=== PATIENT | male | born 1965 | race Caucasian/White ===

== ENCOUNTER 2022-07-12 09:00 | Outpatient (RCR) | payer OTHER, SELFPAY | END 2022-11-30 23:59 | disposition home or self-care (01) | PROVIDERS: PCP Family Medicine; Visit Provider Family Medicine | DX: M54.2 Cervicalgia (principal); Z51.89 Encounter for other specified aftercare | CPT/HCPCS: 97012; 97032; 97035; 97110; 97140; 97161; 97530 ==

== ENCOUNTER 2023-04-21 22:02 | Emergency (ER) | payer OTHER, SELFPAY ==
[2023-04-21] VITALS (14 sets, daily range): BP systolic 108–124; BP diastolic 78–95; PULSE 84–154; RESP 16; TEMP 36.4; O2SAT 92–98
--- NOTE | 2023-04-21 22:25 | CRLHL7_ITS ---
For Patients: As a result of the Century Cures Act, medical imaging exams and procedure reports are released immediately into your electronic medical record. You may view this report before your referring provider. If you have questions, please contact your health care provider. INDICATION: Arrhythmias. TECHNIQUE: Chest 1 view. COMPARISON: None. FINDINGS: No focal consolidation, pleural effusion, or pneumothorax. Normal heart size and pulmonary vascularity. Sternotomy with mediastinal clips and cardiac valve prosthesis. Rounded density projected over the left heart may represent a calcified mediastinal lymph node. The bones are unremarkable. IMPRESSION: No acute cardiopulmonary findings. Dictated by Chely Bae MD @ 04/22/2023 1:11:45 AM (Electronically Signed)
--- NOTE | 2023-04-21 22:26 | ED_ITS ---
HPI - General Adult General Date Seen: 04/21/23 Chief complaint: Arrhythmia/Palpitations Stated complaint: A fib Time Seen by Provider: 04/21/23 22:06 History of Present Illness HPI narrative: This is a very pleasant 57-year-old male with a past medical history of aortic stenosis, aortic valve replacement with mechanical valve, coronary artery disease with CABG. He had his heart surgery about a year ago done at [facility] through [facility]. He did also had some transient atrial fibrillation in the postop. While in the hospital. He is chronically anticoagulated on warfarin for stroke prophylaxis with his mechanical valve. Recent INRs have been around 2.5. He has been pretty steady with INR slightly so has not checked it in a while. He is due to get his INR checked again next week. He had an episode of palpitations that came and went about 3 weeks ago. He was relatively asymptomatic with it. He wonders if he was in AFib but never checked his rhythm or came to the doctor to get investigated. He has been healthy and well since then. He does snore a little bit. He has gained a little bit of weight since his surgery but is otherwise doing well. He has never med diagnosed with sleep apnea. No history of thyroid disease. No recent weight loss or gain. Today he was feeling well. He did have 3 beers while at his friend's house watching the [employer] game. This evening he was at home. He started to feel somewhat unusual and he noticed that his heart was beating faster than normal because he can not hear that clicking of his mechanical valve beating too fast. It initially sounded regular to him. Subsequently changed in state fast but became more regular. Heart rate is around 150. He contacted his friends and took some magnesium but did not get any better so came here to the ER. Other than feeling a little bit dizzy he is otherwise asymptomatic. No chest pain. No shortness of breath. No syncope. No nausea or vomiting. He has no recent travel. No swelling in his legs. His meds include warfarin, metoprolol, rosuvastatin, ranitidine Related Data Home Medications Medication Instructions Recorded Confirmed aspirin 81 mg tablet,delayed 81 mg PO QDAY 06/19/22 06/19/22 release famotidine 40 mg tablet 40 mg PO 06/19/22 06/19/22 metoprolol succinate 50 mg tab PO 06/19/22 06/19/22 tablet,extended release 24 hr nitroglycerin 0.4 mg sublingual 0.4 mg sublingual PRN 06/19/22 06/19/22 tablet rosuvastatin 20 mg tablet 20 mg PO QDAY 06/19/22 06/19/22 warfarin 3 mg tablet See Rx Instructions .Route .COMPLEX 06/19/22 06/19/22 Previous Rx's Medication Instructions Recorded diltiazem HCl 30 mg tablet 30 mg PO Q6H PRN atrial 04/22/23 fibrillation #10 tabs Allergies Allergy/AdvReac Type Severity Reaction Status Date / Time No Known Drug Allergies Allergy Verified 06/19/22 12:22 [facility] PFS Surgical History (Updated 06/19/22 @ 12:26 by Hazel Miranda ~ [facility]) 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) ?R22.1 - Localized swelling, mass and lump, neck (ICD-10) ?Z85.9 - Personal history of malignant neoplasm, unspecified (ICD-10) History of open heart surgery (01/24/22) ?Z98.890 - Other specified postprocedural states (ICD-10) Social History (Updated 06/19/22 @ 12:23 by Hazel Miranda ~ [facility], [facility]) Smoking Status: Never smoker Do you use any of these nicotine containing products: None Second hand tobacco smoke exposure: No How often do you have a drink containing alcohol: 2-3 times a week How many standard drinks containing alcohol do you have on a typical day: 1 or 2 AUDIT-C Alcohol total score: 3 Exam Narrative: Exam Narrative: Constitutional: Appears well-developed and well-nourished. Alert. Conversant. Non toxic. HENT: Head: Atraumatic. Nose: Nose normal. Mouth/Throat: Oral mucosa is clear and moist. no trismus. Pharynx normal. Tonsils symmetric. No tonsillar enlargement, erythema, or exudate. Eyes: Conjunctivae normal. EOM normal. Pupils equal, round, and reactive to light. No scleral icterus. Neck: Normal range of motion. Neck supple. No tracheal deviation present. No thyromegaly. Cardiovascular: Tachycardic, rate 150 on the monitor., regular rhythm. No gallop. No friction rub. Clicking systolic murmur heard. Symmetric radial and PT artery pulses . No JVD Pulmonary/Chest: Effort normal. No stridor. No respiratory distress. No wheezes. No rales. No rhonchi . No tenderness. Abdominal: Soft. No distension. No mass. No tenderness. No rebound. No guarding. Musculoskeletal: RUE: Normal range of motion. No tenderness. No deformity LUE: Normal range of motion. No tenderness. No deformity RLE: Normal range of motion. No edema. No tenderness. No deformity LLE: Normal range of motion. No edema. No tenderness. No deformity Neurological: Alert and oriented to person, place, and time. Normal strength. CN II-VII intact. No sensory deficit. GCS eye subscore is 4. GCS verbal subscore is 5. GCS motor subscore is 6. Normal coordination Skin: Skin is warm and dry. No rash noted. No pallor. Normal capillary refill. Psychiatric: Normal mood. Normal affect. Const: Vital Signs, click to edit/add: Vital Signs - 24 hr 04/21/23 22:21 04/21/23 22:22 04/21/23 22:28 Temperature 97.6 F Pulse Rate 151 H 150 H Pulse Rate [Pulse Oximeter] 154 H Respiratory Rate 16 Blood Pressure 124/95 H Blood Pressure [Ri ght Upper Arm] 124/95 H Pulse Oximetry 96 98 98 Oxygen Delivery Me thod Room Air 04/21/23 22:30 04/21/23 22:38 04/21/23 22:45 Temperature Pulse Rate 151 H 151 H 148 H Pulse Rate [Pulse Oximeter] Respiratory Rate Blood Pressure 117/92 H Blood Pressure [Ri ght Upper Arm] Pulse Oximetry 96 96 97 Oxygen Delivery Me thod 04/21/23 22:55 04/21/23 22:56 04/21/23 23:00 Temperature Pulse Rate 84 87 90 Pulse Rate [Pulse Oximeter] Respiratory Rate Blood Pressure 108/79 Blood Pressure [Ri ght Upper Arm] Pulse Oximetry 97 92 93 Oxygen Delivery Me thod 04/21/23 23:15 04/21/23 23:30 04/21/23 23:33 Temperature Pulse Rate 95 89 84 Pulse Rate [Pulse Oximeter] Respiratory Rate Blood Pressure 120/78 Blood Pressure [Ri ght Upper Arm] Pulse Oximetry 94 97 96 Oxygen Delivery Me thod Course Vital Signs Vital signs: Initial Vital Signs Pulse Rate 151 H 04/21/23 22:21 Blood Pressure 124/95 H 04/21/23 22:21 Blood Pressure Mean 104 04/21/23 22:21 Pulse Oximetry 96 04/21/23 22:21 Vital Signs Pulse Rate 151 H 04/21/23 22:21 Blood Pressure 124/95 H 04/21/23 22:21 Pulse Oximetry 96 04/21/23 22:21 Temperature 97.6 F 04/21/23 22:28 Pulse Rate 84 04/21/23 23:33 Respiratory Rate 16 04/21/23 22:28 Blood Pressure 120/78 04/21/23 23:33 Pulse Oximetry 96 04/21/23 23:33 Oxygen Delivery Method Room Air 04/21/23 22:28 Medications Administered Medications: Generic Name Dose Route Start Last Admin Trade Name Freq PRN Reason Stop Dose Admin Sodium Chloride 1,000 mls @ 1,000 mls/hr 04/21/23 22:30 04/22/23 00:08 0.9 % Sodium Chloride 1000 Ml IV 04/21/23 23:29 Infused .Q1H LOVELY Infusion Metoprolol Tartrate 5 mg 04/21/23 22:24 04/21/23 22:39 Metoprolol Tartrate 1 Mg/Ml Inj IVP 04/21/23 22:25 5 mg ONCE ONE Administration Medical Decision Making MDM Narrative Medical decision making narrative: This patent presents for evaluation of palpitations, with very clear onset at approximately 8:00 p.m. tonight. This is consistent with atrial flutter with 2- 1 conduction and then conversion to atrial fibrillation with rapid ventricular response. He had a similar episode of palpitations about 3 weeks ago that resolved at home. He does have previous heart disease including previous radiation to his thorax, aortic valve replacement, CABG, and postoperative AFib. He is chronically anticoagulated on warfarin but is slightly subtherapeutic on his INR tonight at 1.85. I doubt acute coronary syndrome, PE, dissection, drug ingestion, acute electrolyte imbalance, etc. no ischemia on EKG, troponin normal, and no chest pain or other symptoms of ischemia. Labs and CXR look ok. Repeat EKG looks normal sinus rhythm. Initially had a flutter with 2-1 conduction rate of 150. We administered metoprolol for rate control. This slowed him down and he switched atrial fibrillation with rate ranging 100-120. Subsequently converted to sinus rhythm. Asymptomatic after conversion now and would not hospitalize. Discussed with patient and the patient is in agreement. Discussed with his senior facilities manager. They advise p.r.n. use of diltiazem 30 mg if needed for recurrent AFib. No other change in his regular metoprolol, warfarin. Would not initiate anti arrhythmic Amezquita over the phone. He will need outpatient follow-up in Cardiology Clinic. They will pass a note through to his primary senior facilities manager. The patient will also call Sunday morning to arrange his follow- up visit. Of note his INR slightly subtherapeutic. Suspect this has to do with the time of night that we kim his labs. He will continue his current dose every day and follow-up for his repeat INR check on Sunday, 3 days for now. TSH is slightly elevated tonight. Suggesting possible hypothyroidism. Free T4 level is pending at the time of this dictation. He will follow up with his doctor's office in clinic to follow-up on the free T4 level and if low, may need to initiate thyroid therapy. I do not think hypothyroidism would be contributing to his AFib with RVR. Lab Data Labs: Lab Results 04/21/23 04/21/23 Range/Units 22:15 23:15 WBC 8.85 (4.50-11.00) K/uL RBC 4.56 (4.30-5.90) m/uL Hgb 14.2 (13.5-17.5) gm/dL Hct 41.8 (37.0-53.0) % MCV 92 (80-100) fL MCH 31 (26-34) pg MCHC 34 (32-36) gm/dL RDW Coeff of Hortencia 14.5 (11.5-15.5) % Plt Count 313 (140-440) K/uL Neut % (Auto) 59.1 (42.0-72.0) % Lymph % (Auto) 26.2 (20-44) % [place] % (Auto) 10.7 (0.0-11.0) % Eos % (Auto) 2.1 (0.0-7.0) % Baso % (Auto) 0.7 (0.0-3.0) % Neut # (Auto) 5.22 (1.7-7.0) K/uL Lymph # (Auto) 2.32 (0.90-2.90) K/uL [place] # (Auto) 0.90 (0.00-0.90) K/UL Eos # (Auto) 0.19 (0.00-0.50) K/uL Baso # (Auto) 0.06 (0.00-0.30) K/uL Abs Immat Gran (auto) 0.11 (0.00-0.30) K/uL Imm/Tot Granulo (auto) 1.2 % INR 1.85 H (0.91-1.10) Sodium 131 L (135-149) mmol/L Potassium 4.2 (3.6-5.1) mmol/L Chloride 95 L (96-114) mmol/L Carbon Dioxide 26 (20-32) mmol/L Anion Gap 10 (7-15) mEq/L BUN 15 (7-30) mg/dL Creatinine 0.9 (0.5-1.5) mg/dL Estimated Creat Clear 98.77 Estimated GFR 101 ml/min Glucose 87 (60-115) mg/dL Calcium 9.4 (8.4-10.6) mg/dL Troponin I 0.03 (0.01-0.04) ng/mL TSH 5.860 H (0.270-4.200) uIU/mL Lab Acknowledgement Test Added ECG Data Attestation: I personally reviewed and interpreted this ECG as follows: Interpretation: 10:11 p.m. Atrial flutter with 2:1 conduction CA na QRS axis normal axis. ST segment/T wave: No ST segment elevation or depression. QTc: 388 11:05 p.m. Atrial fibrillation with rapid ventricular response. Rate 107. Some unusual QRS morphologies suggest aberrant conduction or PVCs CA Na QRS axis left axis deviation ST segment/T wave: No ST segment elevation or depression. QTc: 408 EKG 11:31 p.m. Normal sinus rhythm. Rate 84. CA 206 QRS axis: Left axis deviation. ST segment/T-wave. No ST segment elevation. Discharge Plan Discharge Clinical Impression: Atrial fibrillation with rapid ventricular response Patient Disposition: Home, Self-Care Condition: Stable Instructions: A-fib (Atrial Fibrillation) (ED) Additional Instructions: 1. If you have any recurrent episodes of AFib that, especially if you have concerning symptoms such as fainting, chest pain, trouble breathing, return to the ER immediately or call 911. 2. If you have recurrent episodes of AFib with only mild are no symptoms you can take an extra dose of a new medication-diltiazem. Do not take the diltiazem every day. Only take it if you feel about of atrial fibrillation. 3. Call your senior facilities manager Sunday to arrange an appointment in the clinic. 4. Continue on your warfarin, metoprolol, and other medications at their current doses. 5. To not drink alcohol because this can trigger runs of atrial fibrillation. 6. Recheck your INR this week. Prescriptions: New diltiazem HCl 30 mg tablet 30 mg PO Q6H PRN (Reason: atrial fibrillation) Qty: 10 0RF No Action metoprolol succinate 50 mg tablet extended release 24 hr PO warfarin 3 mg tablet See Rx Instructions .ROUTE .COMPLEX Rx Instructions: as directed rosuvastatin 20 mg tablet 20 mg PO QDAY Patient Comments: Take 1 Tablet (20 mg) by mouth once daily. famotidine 40 mg tablet 40 mg PO Patient Comments: Take 1 Tablet (40 mg) by mouth once daily. Take this 30 minutes before your largest meal of the day. nitroglycerin 0.4 mg tablet, sublingual 0.4 mg sublingual PRN aspirin 81 mg tablet,delayed release (DR/EC) 81 mg PO QDAY Follow Up/Referrals: Miguel Freitas MD [Primary Care Provider] - Stand Alone Forms: [employer] Info Instructions
[2023-04-21] MEDS: METOPROLOL TARTRATE 1 MG/ML inj 5 MG IVP (22:39)
[2023-04-21] MEDS: 0.9 % SODIUM CHLORIDE 1000 ml 1,000 ML IV (22:40)
[2023-04-21 22:44] LABS: Basophils Absolute Auto 0.06 K/uL (0.00-0.30); Basophils Percent Auto 0.7 % (0.0-3.0); Eosinophils Absolute Auto 0.19 K/uL (0.00-0.50); Eosinophils Percent Auto 2.1 % (0.0-7.0); Hematocrit 41.8 % (37.0-53.0); Hemoglobin* 14.2 gm/dL (13.5-17.5); Immature Granulocytes Abs Auto 0.11 K/uL (0.00-0.30); Immature Granulocytes Pct Auto 1.2 %; Lymphocytes Absolute Auto 2.32 K/uL (0.90-2.90); Lymphocytes Percent Auto 26.2 % (20-44); Mean Corpuscular HGB Conc 34 gm/dL (32-36); Mean Corpuscular Hemoglobin 31 pg (26-34); Mean Corpuscular Volume 92 fL (80-100); Monocytes Percent Auto 10.7 % (0.0-11.0); Neutrophils Absolute Auto 5.22 K/uL (1.7-7.0); Neutrophils Percent Auto 59.1 % (42.0-72.0); Platelet Count* 313 K/uL (140-440); RDW Coefficient of Variation % 14.5 % (11.5-15.5); Red Blood Count 4.56 m/uL (4.30-5.90); White Blood Count* 8.85 K/uL (4.50-11.00)
[2023-04-21 22:49] LABS: Slide Review Reflex No
[2023-04-21 22:57] LABS: Chloride* 95 mmol/L (96-114); Potassium* 4.2 mmol/L (3.6-5.1); Sodium* 131 mmol/L (135-149)
[2023-04-21 22:59] LABS: Creatinine* 0.9 mg/dL (0.5-1.5); Est. Creatinine Clearance* 98.77; Estimated Glomerular Filt Rate 101 ml/min
--- NOTE | 2023-04-21 22:59 | ED.NURSE ---
Slower rate afib noted at 22:50. EKG obtained.
[2023-04-21 23:00] LABS: Anion Gap 10 mEq/L (7-15); Blood Urea Nitrogen* 15 mg/dL (7-30); Carbon Dioxide* 26 mmol/L (20-32)
[2023-04-21 23:01] LABS: Calcium* 9.4 mg/dL (8.4-10.6); Glucose* 87 mg/dL (60-115)
[2023-04-21 23:12] LABS: Troponin I* 0.03 ng/mL (0.01-0.04)
[2023-04-21 23:28] LABS: INR 1.85 (0.91-1.10); Prothrombin Time 22.6 Seconds
--- NOTE | 2023-04-21 23:34 | ED.NURSE ---
Patient converted to NSR at 23:20. EKG obtained and provider updated.
[2023-04-22] VITALS: PULSE 84; O2SAT 96
[2023-04-22 00:25] LABS: Free T4 Free Thyroxine* 1.16 ng/dL (0.70-1.85)
== END 2023-04-22 00:19 | disposition home or self-care (01) ==
PROVIDERS: Emergency Provider Emergency Medicine; PCP Family Medicine
DX: I48.20 Chronic atrial fibrillation, unspecified (principal)
CPT/HCPCS: 36415; 71045; 80048; 84439; 84443; 84484; 85025; 85610; 93005; 94761; 99284; 99285; J7030

== ENCOUNTER 2023-10-16 01:20 | Emergency (ER) | payer OTHER, SELFPAY ==
[2023-10-16 01:25] VITALS: BP 192/115; PULSE 112; RESP 18; TEMP 36.4; O2SAT 98; BMI 32.3
--- NOTE | 2023-10-16 01:33 | CRLHL7_ITS ---
For Patients: As a result of the Century Cures Act, medical imaging exams and procedure reports are released immediately into your electronic medical record. You may view this report before your referring provider. If you have questions, please contact your health care provider. INDICATION: Migraine. TECHNIQUE: CT head without contrast. COMPARISON: None. FINDINGS: Brain parenchyma, CSF spaces, and extra-axial spaces: The carrasco-white differentiation is normal. No sign of mass, hemorrhage, or midline shift. No hydrocephalus. No extra-axial fluid collection. Skull base and calvarium: The visualized paranasal sinuses demonstrate no acute or significant findings. The mastoid air cells are clear. The visualized orbits are grossly unremarkable. No skull fractures. Mild degenerative changes of the right temporomandibular joint. Atherosclerotic disease the right V4 vertebral artery segment. IMPRESSION: No evidence of an acute intracranial abnormality. Please note that all CT scans at this facility use dose modulation, iterative reconstruction, and/or weight-based dosing when appropriate to reduce radiation dose to as low as reasonably achievable. Dictated by Amadou Arredondo MD @ 10/16/2023 1:59:13 AM (Electronically Signed)
[2023-10-16 01:46] VITALS: BP 173/111; PULSE 108; RESP 18; O2SAT 96
--- NOTE | 2023-10-16 02:08 | ED_ITS ---
HPI - General Adult General Chief complaint: Headache/Migraine Stated complaint: migraine, feels disoriented Time Seen by Provider: 10/16/23 01:34 Source: patient Mode of arrival: ambulatory Limitations: no limitations History of Present Illness HPI narrative: 58-year-old male with a notable prior history of anticoagulation, mechanical aortic valve and prior postoperative stroke presents to the emergency department for evaluation of severe headache, worsening over the past 12 hours but present for about 5 days. No trauma or injury. Anticoagulated on Coumadin because of a mechanical valve. No recent lapse in anticoagulation. Also does have a history of prior AFib. No chest pain. Headache started around the occipital area/back of the neck, no fever. There have been no neurological changes. No neck s tiffness. Over the last couple days, it has started radiating up to the forehead in his now also behind the right eye. He tried taking couple of Tylenol earlier today but symptoms did not improve. He reports that he tried taking a Tylenol this evening and threw it up pretty quickly and has had vomiting since about 9:30 p.m.. No abdominal pain. No diarrhea or bloody stools. No prior history of similar symptoms, no prior history of migraines. No prior intracranial hemorrhage, seizures or other neurological conditions. Blood pressure is typically well controlled. Past medical history notable for prior Hodgkin's disease as a young adult, did have extensive chest radiation. This is thought the etiology of his aortic valve disease and has subsequently undergone aortic valve replacement and is anticoagulated long-term on Coumadin. He also takes famotidine, metoprolol and received a statin as well as low-dose aspirin. He does have a p.r.n. prescription for diltiazem but no recent use. This is just for AFib. Surgical history most notable for the aortic valve replacement as described above. No recent surgeries. Nonsmoker. ROS notable for the headache and some very mild dizziness with nausea that started this evening. No other neurological changes. ROS otherwise negative times 12 systems. Related Data Home Medications ?Medication ?Instructions ?Recorded ?Confirmed aspirin 81 mg tablet,delayed 81 mg PO QDAY 06/19/22 06/19/22 release famotidine 40 mg tablet 40 mg PO 06/19/22 06/19/22 metoprolol succinate 50 mg tab PO 06/19/22 06/19/22 tablet,extended release 24 hr nitroglycerin 0.4 mg sublingual 0.4 mg sublingual PRN 06/19/22 06/19/22 tablet rosuvastatin 20 mg tablet 20 mg PO QDAY 06/19/22 06/19/22 warfarin 3 mg tablet See Rx Instructions .Route .COMPLEX 06/19/22 06/19/22 Previous Rx's ?Medication ?Instructions ?Recorded diltiazem HCl 30 mg tablet 30 mg PO Q6H PRN atrial 04/22/23 fibrillation #10 tabs Allergies Allergy/AdvReac Type Severity Reaction Status Date / Time No Known Drug Allergies Allergy Verified 06/19/22 12:22 PFSH PFS Surgical History 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) ?R22.1 - Localized swelling, mass and lump, neck (ICD-10) ?Z85.9 - Personal history of malignant neoplasm, unspecified (ICD-10) History of open heart surgery (01/24/22) ?Z98.890 - Other specified postprocedural states (ICD-10) Social History Smoking Status: Never smoker Do you use any of these nicotine containing products: None Second hand tobacco smoke exposure: No How often do you have a drink containing alcohol: 2-3 times a week How many standard drinks containing alcohol do you have on a typical day: 1 or 2 AUDIT-C Alcohol total score: 3 Non-prescribed substance use: denies use Exam Const: Vital Signs, click to edit/add: Vital Signs - 24 hr 10/16/23 01:25 10/16/23 01:46 10/16/23 02:39 Temperature 97.5 F L Pulse Rate 108 H Pulse Rate [Pulse Oximeter] 112 H 89 Respiratory Rate 18 18 18 Blood Pressure 173/111 H Blood Pressure [Ri ght Upper Arm] 192/115 H 177/101 H Pulse Oximetry 98 96 92 Oxygen Delivery Me thod Room Air Room Air Oxygen Flow Rate 10/16/23 03:10 Temperature Pulse Rate Pulse Rate [Pulse Oximeter] 90 Respiratory Rate 14 Blood Pressure Blood Pressure [Ri ght Upper Arm] 170/111 H Pulse Oximetry 94 Oxygen Delivery Me thod Nasal Cannula Oxygen Flow Rate 2 Common normals: no apparent distress and alert General appearance: cooperative and well kempt Other: Well nourished, well hydrated, excellent historian. HENMT: Common normals: normocephalic, TM's normal bilaterally, moist oral mucous membranes and oropharynx normal Head and scalp: normocephalic Face and sinus: normal facial exam Tympanic membrane: TM's normal bilaterally Mouth: oral and palatal mucosa normal Other: Petechiae on forehead, around eyes, likely from vomiting. Eye: Common normals: PERRL, EOMs intact bilaterally and conjunctivae normal General eye: normal appearance of both eyes Conjunctiva: conjunctiva(e) normal Pupil: PERRL Neck & C-Spine: Common normals: full ROM and no lymphadenopathy Other: Paraspinal cervical muscle tenderness noted, no meningeal signs. Resp: Common normals: normal respiratory effort and no use of accessory muscles Effort & inspection: able to speak in complete sentences Cardio: Common normals: regular rate and regular rhythm Rate: regular rate Rhythm: regular rhythm Other: Clicking systolic murmur, as expected with known mechanical aortic valve. No other cardiac abnormalities also dated GI: Common normals: Normal to inspection, nondistended, normoactive bowel sounds present, soft to palpation, non-tender, no hepatosplenomegaly and no masses Palpation: soft and no hepatosplenomegaly Back & Pelvis: Common normals: thoracic and lumbar spine normal to inspection Extremity: Common normals: normal to inspection, full ROM and normal capillary refill Neuro: Sensorium/orientation: alert Cranial nerves: CN normal except as noted Coordination/balance: [id number]-hg-[id number] test normal Speech: speech normal Gait (neuro): normal gait (Observed ambulating into ED.) Motor exam: no pronator drift, no tremor noted, muscle tone normal throughout and no movement abnormalities noted Coordination: [id number] test normal Psych: Common normals: speech normal Appearance: well kempt Attitude: engaged Activity/motor behavior: appropriate eye contact Speech: normal speech Mood and affect: euthymic mood Insight: insight good Judgement: judgment good Skin: Narrative: Other than the petechiae on the face, no other abnormalities of the skin noted. Course Course ED Course: Evolving headache with migrainous features, now behind the eye accompanied by nausea and vomiting and some light sensitivity noted on exam. So concern for underlying stroke, specially with history of anticoagulation. Patient sent urgently even before triage was completed to CT scan. Interview and exam completed after he had returned from CT. Differential diagnosis including intracranial hemorrhage, stroke, meningitis though unlikely based on exam, tension headache, musculoskeletal etiology, viral illness, among others. Head CT has been reviewed and does not show any signs of intracranial hemorrhage which is reassuring. Will start an IV, basic labs, give IV Benadryl, Toradol, oral oxycodone and 500 mL bolus of normal saline. Blood pressure is a little elevated, hoping this comes down as pain improves. Will also receive 4 mg of Zofran for vomiting. Await clinical response. If he still has significant neurological concern, can order a CTA and or consult with Neurology. If his symptoms improve markedly with just pain control, will not likely need neurological input. Reevaluation(s) Time of Reevaluation #1: 03:34 Reevaluation #1: Headache did not initially improve much with Toradol, Zofran oral oxycodone. 30 minutes later, 40 mg of IV Solu-Medrol and 0.5 mg of Dilaudid were given. This did improve his headache about 2/3. Has not had any further vomiting but does still feel mildly nauseated. It was able to give a little bit more thorough exam this time and headache really does seem isolated to the greater occipital nerve area on the right. Palpation of this reproduces his tenderness and he does indicate that this is more consistent with where the headache started. Patient is counseled on management. He will take Tylenol 1000 mg every 6 hours. He is given a supply of Zofran from [employer]. He does take both Coumadin and aspirin and use of NSAIDs and prednisone is risky. We discussed the risks and benefits from this. He does take famotidine and does not have a history of significant GI bleed. He is not experiencing any neurological changes on repeat questioning and exam. Counseled that he may benefit from a couple more doses of steroids to calm down the neuralgia. This will likely raise his INR slightly but with his INR at 2.11, benefit seems to outweigh the risk. He will be prescribed 20 mg prednisone to take twice daily from [id number]. Counseled to stop this as soon as the migraine clears. I am hoping this is only a couple more doses. He would take his next dose at about 1:00 p.m. and then a repeat dose at about 9:00 p.m. if the migraine is still present. He will continue on the Tylenol. Sparingly could use ibuprofen with food if needed as well. Encouraged to consider physical therapy and make a follow-up with his primary care provider in 2 days. Discussed the risks and benefits of additional neurological workup today. Does not seem warranted, and he agrees. Vital Signs Vital signs: Initial Vital Signs Temperature 97.5 F L 10/16/23 01:25 Temperature Source Temporal Artery Scan 10/16/23 01:25 Pulse Rate 112 H 10/16/23 01:25 Respiratory Rate 18 10/16/23 01:25 Blood Pressure 192/115 H 10/16/23 01:25 Blood Pressure Mean 140 H 10/16/23 01:25 Blood Pressure Position Supine 10/16/23 01:25 Pulse Oximetry 98 10/16/23 01:25 Oxygen Delivery Method Room Air 10/16/23 01:25 Vital Signs Temperature 97.5 F L 10/16/23 01:25 Pulse Rate 112 H 10/16/23 01:25 Respiratory Rate 18 10/16/23 01:25 Blood Pressure 192/115 H 10/16/23 01:25 Pulse Oximetry 98 10/16/23 01:25 Oxygen Delivery Method Room Air 10/16/23 01:25 Temperature 97.5 F L 10/16/23 01:25 Pulse Rate 90 10/16/23 03:10 Respiratory Rate 14 10/16/23 03:10 Blood Pressure 170/111 H 10/16/23 03:10 Pulse Oximetry 94 10/16/23 03:10 Oxygen Delivery Method Nasal Cannula 10/16/23 03:10 Oxygen Flow Rate 2 10/16/23 03:10 Medications Administered Medications: Generic Name Dose Route Start Last Admin Trade Name Freq PRN Reason Stop Dose Admin Diphenhydramine HCl 25 mg 10/16/23 02:02 10/16/23 02:14 Diphenhydramine 50 Mg/Ml Inj IVP 10/16/23 02:03 25 mg ONCE ONE Administration Hydromorphone HCl 0.5 mg 10/16/23 02:42 10/16/23 02:43 Hydromorphone 0.5 Mg/0.5 Ml Inj IVP 10/16/23 02:43 0.5 mg ONCE ONE Administration Sodium Chloride 500 mls @ 500 mls/hr 10/16/23 02:00 10/16/23 02:55 0.9 % Sodium Chloride 500 Ml IV 10/16/23 02:59 Infused .Q1H ONE Infusion Ketorolac Tromethamine 15 mg 10/16/23 02:02 10/16/23 02:18 Ketorolac 15 Mg/Ml Inj IVP 10/16/23 02:03 15 mg ONCE ONE Administration Methylprednisolone Sodium Succinate 40 mg 10/16/23 02:42 10/16/23 02:44 Methylprednisolone Sod Succ 40 Mg/Ml IVP 10/16/23 02:43 40 mg ONCE ONE Administration Ondansetron HCl 4 mg 10/16/23 02:00 10/16/23 02:12 Ondansetron 2 Mg/Ml Inj IVP 10/16/23 02:01 4 mg ONCE ONE Administration Oxycodone HCl 5 mg 10/16/23 02:02 10/16/23 02:20 Oxycodone 5 Mg Tablet PO 10/16/23 02:03 5 mg ONCE ONE Administration Medical Decision Making Lab Data Lab results reviewed: Yes I reviewed the patient's lab results Lab results narrative: All reassuring. Labs: Lab Results 10/16/23 10/16/23 Range/Units 01:36 02:05 WBC 10.42 (4.50-11.00) K/uL RBC 4.77 (4.30-5.90) m/uL Hgb 14.5 (13.5-17.5) gm/dL Hct 41.8 (37.0-53.0) % MCV 88 (80-100) fL MCH 30 (26-34) pg MCHC 35 (32-36) gm/dL RDW Coeff of Hortencia 14.5 (11.5-15.5) % Plt Count 315 (140-440) K/uL Neut % (Auto) 86.7 H (42.0-72.0) % Lymph % (Auto) 9.4 L (20-44) % [place] % (Auto) 3.3 (0.0-11.0) % Eos % (Auto) 0.0 (0.0-7.0) % Baso % (Auto) 0.1 (0.0-3.0) % Neut # (Auto) 9.00 H (1.7-7.0) K/uL Lymph # (Auto) 1.00 (0.90-2.90) K/uL [place] # (Auto) 0.30 (0.00-0.90) K/UL Eos # (Auto) 0.00 (0.00-0.50) K/uL Baso # (Auto) 0.01 (0.00-0.30) K/uL Abs Immat Gran (auto) 0.05 (0.00-0.30) K/uL Imm/Tot Granulo (auto) 0.5 % INR 2.11 H (0.91-1.10) Sodium 130 L (135-149) mmol/L Potassium 4.2 (3.6-5.1) mmol/L Chloride 97 (96-114) mmol/L Carbon Dioxide 20 (20-32) mmol/L Anion Gap 13 (7-15) mEq/L BUN 15 (7-30) mg/dL Creatinine 0.9 (0.5-1.5) mg/dL Estimated Creat Clear 94.63 Estimated GFR 100 ml/min Glucose 155 H (60-115) mg/dL Calcium 9.3 (8.4-10.6) mg/dL C-Reactive Protein 0.8 (0.5-1.0) mg/dL SARS-CoV-2 (PCR) Negative SARS-CoV-2 (Negative) Influenza Type A (PCR) Negative PCR FLU A (Negative) Influenza Type B (PCR) Negative PCR FLU B (Negative) RSV (PCR) Negative PCR RSV (Negative) Imaging Data CT scan - head: Attestation: I have reviewed the pertinent imaging results. My impression: Normal head CT, no hemorrhage Radiologist's impression: IMPRESSION: No evidence of an acute intracranial abnormality. ECG Data Attestation: I personally reviewed and interpreted this ECG as follows: Prior ECG tracings: available for review (Comparison 23) Interpretation: Sinus tachycardia, rate 106. Normal axis and intervals. No significant ST or T-wave abnormalities. Nonischemic. Discharge Plan Discharge Clinical Impression: Headache, migraine Patient Disposition: Home w/ Parent or Adult Condition: Stable Instructions: Migraine Headache (ED) Additional Instructions: As we discussed, I suspect that this headache started as a tension headache that progressed into a migraine. I think it comes from the nerves near the top of your neck. I would recommend that you consider a physical therapy consult as often these episodes will recur. Please make a follow-up appointment with her primary care doctor if things have not improved markedly by morning. The steroids that your given here in the ED may raise your INR, I would recommend that you have this rechecked in a couple of days. Your INR is 2.11 today. . The steroids will also likely fully kick in within a couple of hours. This tends to help dramatically with this type of headache. Continue to drink lots of fluids. For pain, take Tylenol 1000 mg every 6 hours. Do this automatically for the next 48 hours minimum. This is safe to continue long-term even with your other medications. I have given you a prescription for Zofran which is the anti nausea medicine to help prevent vomiting if needed. You do not need to automatically take it. I am also sending you home with some prednisone, this is the steroid anti-inflammatory medication. You may not need further doses of this if the migraine breaks, but if it is still persistent, start this steroid pack. You would take another dose at about noon and then another dose at about 8:00 p.m.. Try to take it with some food in your stomach. You may continue taking it twice daily for a couple more days if it helps with the pain and inflammation. The safest option would be to stop it once her pain has improved. As stated above, it will likely raise your INR slightly. Often, we recommend cutting your Coumadin dose by about 1/3 just for the days while you are on the prednisone. I have also given you a muscle relaxant, Flexeril. This can be used at bedtime to help relax the muscles and promote sleep. You may take this when you get home or save it for another night if needed. It will cause drowsiness and is therefore only recommended at bedtime. Any worsening neurological symptoms should be evaluated in an emergency department and would not be expected. Activity Level: No Restrictions Discharge Diet: Regular Prescriptions: No Action metoprolol succinate 50 mg tablet extended release 24 hr PO warfarin 3 mg tablet See Rx Instructions .ROUTE .COMPLEX Rx Instructions: as directed rosuvastatin 20 mg tablet 20 mg PO QDAY Patient Comments: Take 1 Tablet (20 mg) by mouth once daily. famotidine 40 mg tablet 40 mg PO Patient Comments: Take 1 Tablet (40 mg) by mouth once daily. Take this 30 minutes before your largest meal of the day. nitroglycerin 0.4 mg tablet, sublingual 0.4 mg sublingual PRN aspirin 81 mg tablet,delayed release (DR/EC) 81 mg PO QDAY diltiazem HCl 30 mg tablet 30 mg PO Q6H PRN (Reason: atrial fibrillation) Qty: 10 0RF Follow Up/Referrals: Miguel Freitas MD [Primary Care Provider] - Stand Alone Forms: [employer] Info Instructions
[2023-10-16 02:10] LABS: Basophils Absolute Auto 0.01 K/uL (0.00-0.30); Basophils Percent Auto 0.1 % (0.0-3.0); Hematocrit 41.8 % (37.0-53.0); Hemoglobin* 14.5 gm/dL (13.5-17.5); Immature Granulocytes Abs Auto 0.05 K/uL (0.00-0.30); Immature Granulocytes Pct Auto 0.5 %; Lymphocytes Percent Auto 9.4 % (20-44); Mean Corpuscular HGB Conc 35 gm/dL (32-36); Mean Corpuscular Hemoglobin 30 pg (26-34); Mean Corpuscular Volume 88 fL (80-100); Monocytes Percent Auto 3.3 % (0.0-11.0); Neutrophils Percent Auto 86.7 % (42.0-72.0); Platelet Count* 315 K/uL (140-440); RDW Coefficient of Variation % 14.5 % (11.5-15.5); Red Blood Count 4.77 m/uL (4.30-5.90); Slide Review Reflex No; White Blood Count* 10.42 K/uL (4.50-11.00)
[2023-10-16] MEDS: 0.9 % SODIUM CHLORIDE 500 ML 500 ML IV (02:10)
[2023-10-16 02:11] LABS: Chloride* 97 mmol/L (96-114); Sodium* 130 mmol/L (135-149)
[2023-10-16 02:12] LABS: Potassium* 4.2 mmol/L (3.6-5.1)
[2023-10-16] MEDS: ONDANSETRON 2 MG/ML inj 4 MG IVP (02:12)
[2023-10-16 02:14] LABS: Creatinine* 0.9 mg/dL (0.5-1.5); Est. Creatinine Clearance* 94.63; Estimated Glomerular Filt Rate 100 ml/min; INR 2.11 (0.91-1.10); Prothrombin Time 25.2 Seconds
[2023-10-16] MEDS: diphenhydrAMINE 50 MG/ML inj 25 MG IVP (02:14)
[2023-10-16 02:15] LABS: Anion Gap 13 mEq/L (7-15); Blood Urea Nitrogen* 15 mg/dL (7-30); Carbon Dioxide* 20 mmol/L (20-32); Glucose* 155 mg/dL (60-115)
[2023-10-16 02:16] LABS: Calcium* 9.3 mg/dL (8.4-10.6)
[2023-10-16 02:18] LABS: C Reactive Protein* 0.8 mg/dL (0.5-1.0)
[2023-10-16] MEDS: KETOROLAC 15 MG/ML inj IVP (02:18)
[2023-10-16] MEDS: OXYCODONE 5 MG TABLET PO (02:20)
[2023-10-16 02:39] VITALS: BP 177/101; PULSE 89; RESP 18; O2SAT 92
[2023-10-16] MEDS: HYDROmorphone 0.5 mg/0.5 ml inj IVP (02:43)
[2023-10-16] MEDS: METHYLPREDNISOLONE SOD SUCC 40 MG/ML IVP (02:44)
[2023-10-16 02:53] LABS: PCR FLU A Negative PCR FLU A (Negative); PCR FLU B Negative PCR FLU B (Negative); PCR RSV Negative PCR RSV (Negative); SARS PCR* Negative SARS-CoV-2 (Negative)
[2023-10-16 03:10] VITALS: BP 170/111; PULSE 90; RESP 14; O2SAT 94
--- NOTE | 2023-10-16 03:11 | PC.NURSE ---
Pt attempting to rest, states pain 8/10 just feel really tired. at bedside. will continue to monitor.
--- NOTE | 2023-10-16 04:00 | PC.NURSE ---
Pt's oxygen saturation down to 85% on room air while resting. Put on 2L per NC sats up to 95%. Will keep pt. here to monitor longer and reassess.
--- NOTE | 2023-10-16 04:33 | PC.NURSE ---
Pt sleeping, has been on room air for 20 minutes. oxygen saturations 93-94% during that time. Pt getting dressed, ready for discharge to home with .
[2023-10-16 04:34] VITALS: BP 165/98; PULSE 85; RESP 16; TEMP 36.6
== END 2023-10-16 04:51 | disposition home or self-care (01) ==
PROVIDERS: Emergency Provider Family Medicine; PCP Family Medicine
DX: G43.909 Migraine, unspecified, not intractable, without status migrainosus (principal)
CPT/HCPCS: 36415; 70450; 80048; 85025; 85610; 86140; 87631; 93005; 99284; A9270; J1170; J1200; J1885; J2405; J2919; J7030

== ENCOUNTER 2023-10-16 12:29 | Emergency (ER) | payer OTHER, SELFPAY ==
[2023-10-16] VITALS (31 sets, daily range): BP systolic 122–209; BP diastolic 68–123; PULSE 83–105; RESP 16–22; TEMP 37.3; O2SAT 87–98; BMI 32.3
--- NOTE | 2023-10-16 | CRLHL7_ITS ---
For Patients: As a result of the Century Cures Act, medical imaging exams and procedure reports are released immediately into your electronic medical record. You may view this report before your referring provider. If you have questions, please contact your health care provider. CLINICAL HISTORY: Occipital headache. TECHNIQUE: 3D TOF MRA and contrast-enhanced MRA of the neck was performed. 3D MIP reformats were performed at an independent workstation. Contrast: 20mL of Dotarem was administered intravenously. COMPARISON: None available. FINDINGS: The origins of the great vessels are patent. The origins of the vertebral arteries are patent. The common carotid arteries are patent. The proximal internal carotid arteries are patent without luminal stenoses by NASCET criteria. The more distal cervical segments of the internal carotid arteries are patent. The right vertebral artery dominant and patent throughout its cervical course. The non dominant left vertebral artery demonstrates diminutive caliber with decreased flow related enhancement menses mid to distal cervical segments, at approximately the C3-4 level, with complete loss of flow related enhancement in its suboccipital loop of the distal cervical segment. IMPRESSION: Diminutive caliber of the mid to distal cervical left vertebral artery with loss of flow related enhancement in its distal cervical segment, as above. Given the history of occipital headache, findings are suspicious for vertebral artery dissection. Dictated by Aniceto Carbajal MD @ 10/16/2023 6:23:52 PM (Electronically Signed)
[2023-10-16] MEDS: 0.9 % SODIUM CHLORIDE 1000 ml 1,000 ML IV (13:22)
[2023-10-16 13:32] LABS: Basophils Absolute Auto 0.01 K/uL (0.00-0.30); Basophils Percent Auto 0.1 % (0.0-3.0); Hematocrit 43.1 % (37.0-53.0); Hemoglobin* 15.1 gm/dL (13.5-17.5); Immature Granulocytes Abs Auto 0.03 K/uL (0.00-0.30); Immature Granulocytes Pct Auto 0.3 %; Lymphocytes Percent Auto 12.7 % (20-44); Mean Corpuscular HGB Conc 35 gm/dL (32-36); Mean Corpuscular Hemoglobin 31 pg (26-34); Mean Corpuscular Volume 87 fL (80-100); Neutrophils Percent Auto 84.9 % (42.0-72.0); Platelet Count* 323 K/uL (140-440); RDW Coefficient of Variation % 14.6 % (11.5-15.5); Red Blood Count 4.93 m/uL (4.30-5.90)
[2023-10-16 13:35] LABS: Slide Review Reflex No
--- NOTE | 2023-10-16 13:37 | ED.HA ---
HPI - Headache General Chief Complaint: Headache/Migraine <Elvin Greene MD - Last Filed: 10/16/23 14:41> Stated Complaint: headache,nausea <Elvin Greene MD - Last Filed: 10/16/23 14:41> Time Seen by Provider: 10/16/23 12:47 <Elvin Greene MD - Last Filed: 10/16/23 14:41> History of Present Illness HPI Narrative: patient has a headache in the back of the neck with the radiation up to head. the whole head hurts and is feeling NV and unable to keep anything down. vision is the same has hx of partial stroke 2 yrs ago with leaving right lower vision defect. was in last night with treatment of headache and received meds and fluids was able to sleep them around 1000 pain worse . postual issues from open heart in the shoulder area. -Date of Onset of Symptoms 529 2023 Patient is a very nice 58-year-old gentleman who presents here with the right-sided headache, initially started 6 days ago, while he was a driving a car, and cough. It noted pain that radiated up from his right the septal region. From his neck. He describes nausea vomiting associated with this and some photophobic symptoms. Denies any numbness tingling or weakness associated with this any problems with ataxia. Or word-finding problems. He is here today with his , they called 1 of my partners who is a local physician in the community, and my partner recommended that he come back in for reassessment. He was seen last night, CT scan at was normal. Blood tests were normal and he got a little bit better with IV fluids and medications per what went on. Feels that he may had a fever, for the last couple days but has not taken his temperature. Definitely has felt hot and cold spells. Denies any significant tick bites, although he was bit by a mosquito approximately a week ago, on the forehead. No recent travel history. History of aortic valve repair in 2019. Mechanical, anticoagulated warfarin with an INR therapeutic yesterday at 2.1., history of a previous stroke while he got his aortic valve. With symptoms much the same. <Elvin Greene MD - Last Filed: 10/16/23 14:41> Onset description: suddenly and while at rest <Elvin Greene MD - Last Filed: 10/16/23 14:41> Location: right and occipital <Elvin Greene MD - Last Filed: 10/16/23 14:41> Quality & Timing: aching, throbbing, squeezing, intermittent, first headache and worst headache of life <Elvin Greene MD - Last Filed: 10/16/23 14:41> Exacerbating factors: movement of head/neck, light and noise <Elvin Greene MD - Last Filed: 10/16/23 14:41> Relieving factors: rest, prescription medication and dark room <Elvin Greene MD - Last Filed: 10/16/23 14:41> Context: occurred with exertion/activity <Elvin Greene MD - Last Filed: 10/16/23 14:41> Related Data Home Medications: Home Medications ?Medication ?Instructions ?Recorded ?Confirmed aspirin 81 mg tablet,delayed 81 mg PO QDAY 06/19/22 10/16/23 release famotidine 40 mg tablet 40 mg PO DAILY 06/19/22 10/16/23 metoprolol succinate 50 mg 50 mg PO DAILY 06/19/22 10/16/23 tablet,extended release 24 hr nitroglycerin 0.4 mg sublingual 0.4 mg sublingual Q5M PRN 06/19/22 10/16/23 tablet rosuvastatin 20 mg tablet 20 mg PO QDAY 06/19/22 10/16/23 warfarin 3 mg tablet See Rx Instructions .Route .COMPLEX 06/19/22 10/16/23 Previous Rx's ?Medication ?Instructions ?Recorded diltiazem HCl 30 mg tablet 30 mg PO Q6H PRN atrial 04/22/23 fibrillation #10 tabs <Elvin Greene MD - Last Filed: 10/16/23 14:41> Allergies/Adverse Reactions: Allergies Allergy/AdvReac Type Severity Reaction Status Date / Time No Known Drug Allergies Allergy Verified 10/16/23 12:57 <Elvin Greene MD - Last Filed: 10/16/23 14:41> Review of Systems Status of ROS: Reports: 10 or more systems reviewed and unremarkable except as noted in History and below <Elvin Greene MD - Last Filed: 10/16/23 14:41> PFSH PFSH Surgical History: Surgical History 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) ?R22.1 - Localized swelling, mass and lump, neck (ICD-10) ?Z85.9 - Personal history of malignant neoplasm, unspecified (ICD-10) History of open heart surgery (01/24/22) ?Z98.890 - Other specified postprocedural states (ICD-10) <Elvin Greene MD - Last Filed: 10/16/23 14:41> Social History: Social History Smoking Status: Never smoker Do you use any of these nicotine containing products: None Second hand tobacco smoke exposure: No How often do you have a drink containing alcohol: 2-3 times a week How many standard drinks containing alcohol do you have on a typical day: 1 or 2 AUDIT-C Alcohol total score: 3 Non-prescribed substance use: denies use <Elvin Greene MD - Last Filed: 10/16/23 14:41> Exam Narrative: Exam Narrative: I find him in room 7, he is in some [id number] distress. Looks uncomfortable. Alert and oriented x3 GCS 15/15, TMs normal, no nystagmus. Fundi appear normal. Pupils are equal round reactive to light, there is no scleral icterus redness, cranial nerves 3-12 are normal, neck is supple full range of motion, somewhat tender over the right occipital region. No cervical spine tenderness chest is good air entry bilaterally, clicking of aortic valve noted. Abdomen is soft slightly obese moves all extremities independently and well. Skin reveals no petechiae rashes. <Elvin Greene MD - Last Filed: 10/16/23 14:41> Const: Vital Signs, click to edit/add: Vital Signs - 24 hr 10/16/23 12:45 10/16/23 13:15 10/16/23 14:15 Temperature 99.1 F Pulse Rate Pulse Rate [Pulse Oximeter] 97 87 89 Respiratory Rate 16 18 18 Blood Pressure Blood Pressure [Ri ght Upper Arm] 175/91 H 180/109 H 168/96 H Pulse Oximetry 98 93 89 Oxygen Delivery Me thod Room Air Room Air Room Air 10/16/23 15:15 10/16/23 16:15 10/16/23 18:00 Temperature Pulse Rate Pulse Rate [Pulse Oximeter] 92 92 94 Respiratory Rate 18 18 22 Blood Pressure Blood Pressure [Ri ght Upper Arm] 165/94 H 163/91 H 209/123 H Pulse Oximetry 92 92 94 Oxygen Delivery Me thod Room Air Room Air Room Air 10/16/23 19:26 10/16/23 19:30 10/16/23 19:32 Temperature Pulse Rate 83 85 84 Pulse Rate [Pulse Oximeter] Respiratory Rate Blood Pressure 172/97 H Blood Pressure [Ri ght Upper Arm] Pulse Oximetry 93 94 95 Oxygen Delivery Me thod 10/16/23 19:33 10/16/23 19:37 10/16/23 19:38 Temperature Pulse Rate 87 92 88 Pulse Rate [Pulse Oximeter] Respiratory Rate Blood Pressure 161/120 H Blood Pressure [Ri ght Upper Arm] Pulse Oximetry 94 93 94 Oxygen Delivery Nj thod 10/16/23 19:47 10/16/23 19:51 10/16/23 19:52 Temperature Pulse Rate 88 104 H 90 Pulse Rate [Pulse Oximeter] Respiratory Rate Blood Pressure 161/88 H 166/91 H Blood Pressure [Ri ght Upper Arm] Pulse Oximetry 93 92 93 Oxygen Delivery Me thod 10/16/23 20:00 10/16/23 20:02 10/16/23 20:03 Temperature Pulse Rate 100 101 H 100 Pulse Rate [Pulse Oximeter] Respiratory Rate Blood Pressure 155/91 H Blood Pressure [Ri ght Upper Arm] Pulse Oximetry 95 97 97 Oxygen Delivery Nj thod 10/16/23 20:17 10/16/23 20:30 10/16/23 20:32 Temperature Pulse Rate 89 85 96 Pulse Rate [Pulse Oximeter] Respiratory Rate Blood Pressure 167/93 H 128/82 Blood Pressure [Ri ght Upper Arm] Pulse Oximetry 94 97 87 L Oxygen Delivery Me thod 10/16/23 20:33 10/16/23 20:47 10/16/23 20:48 Temperature Pulse Rate 97 105 H 93 Pulse Rate [Pulse Oximeter] Respiratory Rate Blood Pressure 123/73 Blood Pressure [Ri ght Upper Arm] Pulse Oximetry 92 96 96 Oxygen Delivery Me thod 10/16/23 21:00 10/16/23 21:01 10/16/23 21:17 Temperature Pulse Rate 83 98 89 Pulse Rate [Pulse Oximeter] Respiratory Rate Blood Pressure 125/70 122/73 Blood Pressure [Ri ght Upper Arm] Pulse Oximetry 89 94 95 Oxygen Delivery Me thod 10/16/23 21:24 10/16/23 21:30 10/16/23 21:31 Temperature Pulse Rate 92 93 96 Pulse Rate [Pulse Oximeter] Respiratory Rate Blood Pressure 124/68 128/78 Blood Pressure [Ri ght Upper Arm] Pulse Oximetry 94 96 97 Oxygen Delivery Me thod <Elvin Greene MD - Last Filed: 10/16/23 14:41> Vital Signs, click to edit/add: Vital Signs - 24 hr 10/16/23 12:45 10/16/23 13:15 10/16/23 14:15 Temperature 99.1 F Pulse Rate Pulse Rate [Pulse Oximeter] 97 87 89 Respiratory Rate 16 18 18 Blood Pressure Blood Pressure [Ri ght Upper Arm] 175/91 H 180/109 H 168/96 H Pulse Oximetry 98 93 89 Oxygen Delivery Me thod Room Air Room Air Room Air 10/16/23 15:15 10/16/23 16:15 10/16/23 18:00 Temperature Pulse Rate Pulse Rate [Pulse Oximeter] 92 92 94 Respiratory Rate 18 18 22 Blood Pressure Blood Pressure [Ri ght Upper Arm] 165/94 H 163/91 H 209/123 H Pulse Oximetry 92 92 94 Oxygen Delivery Me thod Room Air Room Air Room Air 10/16/23 19:26 10/16/23 19:30 10/16/23 19:32 Temperature Pulse Rate 83 85 84 Pulse Rate [Pulse Oximeter] Respiratory Rate Blood Pressure 172/97 H Blood Pressure [Ri ght Upper Arm] Pulse Oximetry 93 94 95 Oxygen Delivery Me thod 10/16/23 19:33 10/16/23 19:37 10/16/23 19:38 Temperature Pulse Rate 87 92 88 Pulse Rate [Pulse Oximeter] Respiratory Rate Blood Pressure 161/120 H Blood Pressure [Ri ght Upper Arm] Pulse Oximetry 94 93 94 Oxygen Delivery Me thod 10/16/23 19:47 10/16/23 19:51 10/16/23 19:52 Temperature Pulse Rate 88 104 H 90 Pulse Rate [Pulse Oximeter] Respiratory Rate Blood Pressure 161/88 H 166/91 H Blood Pressure [Ri ght Upper Arm] Pulse Oximetry 93 92 93 Oxygen Delivery Me thod 10/16/23 20:00 10/16/23 20:02 10/16/23 20:03 Temperature Pulse Rate 100 101 H 100 Pulse Rate [Pulse Oximeter] Respiratory Rate Blood Pressure 155/91 H Blood Pressure [Ri ght Upper Arm] Pulse Oximetry 95 97 97 Oxygen Delivery Me thod 10/16/23 20:17 10/16/23 20:30 10/16/23 20:32 Temperature Pulse Rate 89 85 96 Pulse Rate [Pulse Oximeter] Respiratory Rate Blood Pressure 167/93 H 128/82 Blood Pressure [Ri ght Upper Arm] Pulse Oximetry 94 97 87 L Oxygen Delivery Me thod 10/16/23 20:33 10/16/23 20:47 10/16/23 20:48 Temperature Pulse Rate 97 105 H 93 Pulse Rate [Pulse Oximeter] Respiratory Rate Blood Pressure 123/73 Blood Pressure [Ri ght Upper Arm] Pulse Oximetry 92 96 96 Oxygen Delivery Me thod 10/16/23 21:00 10/16/23 21:01 10/16/23 21:17 Temperature Pulse Rate 83 98 89 Pulse Rate [Pulse Oximeter] Respiratory Rate Blood Pressure 125/70 122/73 Blood Pressure [Ri ght Upper Arm] Pulse Oximetry 89 94 95 Oxygen Delivery Me thod 10/16/23 21:24 10/16/23 21:30 10/16/23 21:31 Temperature Pulse Rate 92 93 96 Pulse Rate [Pulse Oximeter] Respiratory Rate Blood Pressure 124/68 128/78 Blood Pressure [Ri ght Upper Arm] Pulse Oximetry 94 96 97 Oxygen Delivery Me thod <Torie Blackwell MD - Last Filed: 10/16/23 21:56> Course Consultations Consultation #1: I spoke to the [facility] neurologist, phone consultation. Described the case to him he recommended MRI of the head with and without contrast. Given his neck pain also we will add in neck. If we need to do a formal tele neurology consult we can do this after we get the imaging. <Elvin Greene MD - Last Filed: 10/16/23 14:41> Time: 13:55 <Elvin Greene MD - Last Filed: 10/16/23 14:41> Vital Signs Vital signs: Initial Vital Signs Temperature 99.1 F 10/16/23 12:45 Temperature Source Temporal Artery Scan 10/16/23 12:45 Pulse Rate 97 10/16/23 12:45 Pulse Rhythm Regular 10/16/23 12:45 Respiratory Rate 16 10/16/23 12:45 Blood Pressure 175/91 H 10/16/23 12:45 Blood Pressure Mean 119 H 10/16/23 12:45 Blood Pressure Position Sitting 10/16/23 12:45 Pulse Oximetry 98 10/16/23 12:45 Oxygen Delivery Method Room Air 10/16/23 12:45 Vital Signs Temperature 99.1 F 10/16/23 12:45 Pulse Rate 97 10/16/23 12:45 Respiratory Rate 16 10/16/23 12:45 Blood Pressure 175/91 H 10/16/23 12:45 Pulse Oximetry 98 10/16/23 12:45 Oxygen Delivery Method Room Air 10/16/23 12:45 Temperature 99.1 F 10/16/23 12:45 Pulse Rate 96 10/16/23 21:31 Respiratory Rate 22 10/16/23 18:00 Blood Pressure 128/78 10/16/23 21:31 Pulse Oximetry 97 10/16/23 21:31 Oxygen Delivery Method Room Air 10/16/23 18:00 <Elvin Greene MD - Last Filed: 10/16/23 14:41> Initial Vital Signs Temperature 99.1 F 10/16/23 12:45 Temperature Source Temporal Artery Scan 10/16/23 12:45 Pulse Rate 97 10/16/23 12:45 Pulse Rhythm Regular 10/16/23 12:45 Respiratory Rate 16 10/16/23 12:45 Blood Pressure 175/91 H 10/16/23 12:45 Blood Pressure Mean 119 H 10/16/23 12:45 Blood Pressure Position Sitting 10/16/23 12:45 Pulse Oximetry 98 10/16/23 12:45 Oxygen Delivery Method Room Air 10/16/23 12:45 Vital Signs Temperature 99.1 F 10/16/23 12:45 Pulse Rate 97 10/16/23 12:45 Respiratory Rate 16 10/16/23 12:45 Blood Pressure 175/91 H 10/16/23 12:45 Pulse Oximetry 98 10/16/23 12:45 Oxygen Delivery Method Room Air 10/16/23 12:45 Temperature 99.1 F 10/16/23 12:45 Pulse Rate 96 10/16/23 21:31 Respiratory Rate 22 10/16/23 18:00 Blood Pressure 128/78 10/16/23 21:31 Pulse Oximetry 97 10/16/23 21:31 Oxygen Delivery Method Room Air 10/16/23 18:00 <Torie Blackwell MD - Last Filed: 10/16/23 21:56> Medications Administered Medications: Generic Name Dose Route Start Last Admin Trade Name Freq PRN Reason Stop Dose Admin Hydromorphone HCl 0.5 mg 10/16/23 21:47 10/16/23 21:55 Hydromorphone 0.5 Mg/0.5 Ml Inj IVP 10/16/23 21:48 Not Given ONCE ONE Nicardipine HCl 25 mg/ Sodium 250 mls @ 50 mls/hr 10/16/23 18:36 10/16/23 21:24 Chloride IVPB 75 mls/hr .TITRATE PRN Infusion Blood Pressure - High Protocol Discontinued Medications Generic Name Dose Route Start Last Admin Trade Name Freq PRN Reason Stop Dose Admin Diphenhydramine HCl 25 mg 10/16/23 13:14 10/16/23 13:40 Diphenhydramine 50 Mg/Ml Inj IVP 10/16/23 13:15 25 mg ONCE ONE Administration Diphenhydramine HCl 25 mg 10/16/23 18:18 10/16/23 18:33 Diphenhydramine 50 Mg/Ml Inj IVP 10/16/23 18:19 25 mg ONCE ONE Administration Hydromorphone HCl 0.5 mg 10/16/23 13:14 10/16/23 13:40 Hydromorphone 0.5 Mg/0.5 Ml Inj IVP 10/16/23 13:15 0.5 mg ONCE ONE Administration Hydromorphone HCl 0.5 mg 10/16/23 14:40 10/16/23 15:01 Hydromorphone 0.5 Mg/0.5 Ml Inj IVP 10/16/23 14:41 0.5 mg ONCE ONE Administration Hydromorphone HCl 0.5 mg 10/16/23 18:04 10/16/23 18:20 Hydromorphone 0.5 Mg/0.5 Ml Inj IVP 10/16/23 18:05 0.5 mg ONCE ONE Administration Hydromorphone HCl 0.5 mg 10/16/23 19:59 10/16/23 20:25 Hydromorphone 0.5 Mg/0.5 Ml Inj IVP 10/16/23 20:00 0.5 mg ONCE ONE Administration Sodium Chloride 1,000 mls @ 1,000 mls/hr 10/16/23 13:15 10/16/23 14:20 0.9 % Sodium Chloride 1000 Ml IV 10/16/23 14:14 Infused .Q1H LOVELY Infusion Metoclopramide HCl 10 mg/ 102 mls @ 306 mls/hr 10/16/23 13:14 10/16/23 14:33 Sodium Chloride IVPB 10/16/23 13:15 Infused ONCE ONE Infusion Metoclopramide HCl 10 mg/ 102 mls @ 306 mls/hr 10/16/23 18:18 10/16/23 19:23 Sodium Chloride IVPB 10/16/23 18:19 Infused ONCE ONE Infusion Phytonadione 5 mg/ Sodium 50.5 mls @ 100 mls/hr 10/16/23 19:53 10/16/23 20:52 Chloride IVPB 10/16/23 20:23 Not Given ONCE ONE Prothrombin Complex Concent ( 60 mls @ 180 mls/hr 10/16/23 19:53 10/16/23 21:20 Human) 1,500 unit/ IV IV 10/16/23 20:12 Infused Miscellaneous Supplies ONCE ONE Infusion Phytonadione 10 mg/ Sodium 51 mls @ 100 mls/hr 10/16/23 19:53 10/16/23 21:24 Chloride IVPB 10/16/23 20:23 100 mls/hr ONCE ONE Administration Ketorolac Tromethamine 30 mg 10/16/23 13:14 10/16/23 13:40 Ketorolac 30 Mg/Ml Inj IVP 10/16/23 13:15 30 mg ONCE ONE Administration <Elvin Greene MD - Last Filed: 10/16/23 14:41> Generic Name Dose Route Start Last Admin Trade Name Freq PRN Reason Stop Dose Admin Hydromorphone HCl 0.5 mg 10/16/23 21:47 10/16/23 21:55 Hydromorphone 0.5 Mg/0.5 Ml Inj IVP 10/16/23 21:48 Not Given ONCE ONE Nicardipine HCl 25 mg/ Sodium 250 mls @ 50 mls/hr 10/16/23 18:36 10/16/23 21:24 Chloride IVPB 75 mls/hr .TITRATE PRN Infusion Blood Pressure - High Protocol Discontinued Medications Generic Name Dose Route Start Last Admin Trade Name Freq PRN Reason Stop Dose Admin Diphenhydramine HCl 25 mg 10/16/23 13:14 10/16/23 13:40 Diphenhydramine 50 Mg/Ml Inj IVP 10/16/23 13:15 25 mg ONCE ONE Administration Diphenhydramine HCl 25 mg 10/16/23 18:18 10/16/23 18:33 Diphenhydramine 50 Mg/Ml Inj IVP 10/16/23 18:19 25 mg ONCE ONE Administration Hydromorphone HCl 0.5 mg 10/16/23 13:14 10/16/23 13:40 Hydromorphone 0.5 Mg/0.5 Ml Inj IVP 10/16/23 13:15 0.5 mg ONCE ONE Administration Hydromorphone HCl 0.5 mg 10/16/23 14:40 10/16/23 15:01 Hydromorphone 0.5 Mg/0.5 Ml Inj IVP 10/16/23 14:41 0.5 mg ONCE ONE Administration Hydromorphone HCl 0.5 mg 10/16/23 18:04 10/16/23 18:20 Hydromorphone 0.5 Mg/0.5 Ml Inj IVP 10/16/23 18:05 0.5 mg ONCE ONE Administration Hydromorphone HCl 0.5 mg 10/16/23 19:59 10/16/23 20:25 Hydromorphone 0.5 Mg/0.5 Ml Inj IVP 10/16/23 20:00 0.5 mg ONCE ONE Administration Sodium Chloride 1,000 mls @ 1,000 mls/hr 10/16/23 13:15 10/16/23 14:20 0.9 % Sodium Chloride 1000 Ml IV 10/16/23 14:14 Infused .Q1H LOVELY Infusion Metoclopramide HCl 10 mg/ 102 mls @ 306 mls/hr 10/16/23 13:14 10/16/23 14:33 Sodium Chloride IVPB 10/16/23 13:15 Infused ONCE ONE Infusion Metoclopramide HCl 10 mg/ 102 mls @ 306 mls/hr 10/16/23 18:18 10/16/23 19:23 Sodium Chloride IVPB 10/16/23 18:19 Infused ONCE ONE Infusion Phytonadione 5 mg/ Sodium 50.5 mls @ 100 mls/hr 10/16/23 19:53 10/16/23 20:52 Chloride IVPB 10/16/23 20:23 Not Given ONCE ONE Prothrombin Complex Concent ( 60 mls @ 180 mls/hr 10/16/23 19:53 10/16/23 21:20 Human) 1,500 unit/ IV IV 10/16/23 20:12 Infused Miscellaneous Supplies ONCE ONE Infusion Phytonadione 10 mg/ Sodium 51 mls @ 100 mls/hr 10/16/23 19:53 10/16/23 21:24 Chloride IVPB 10/16/23 20:23 100 mls/hr ONCE ONE Administration Ketorolac Tromethamine 30 mg 10/16/23 13:14 10/16/23 13:40 Ketorolac 30 Mg/Ml Inj IVP 10/16/23 13:15 30 mg ONCE ONE Administration <Torie Blackwell MD - Last Filed: 10/16/23 21:56> MDM - Headache MDM Narrative Medical decision making narrative: Life-threatening differential diagnosis include subarachnoid hemorrhage, meningitis, encephalitis, carbon monoxide poisoning, and intracerebral hemorrhage. Other differential diagnosis include but not limited to migraine, cluster headache, tension headache, DOUGH BRAKE MACHINE OPERATOR vasculitis, mass lesion, temporal arteritis, click acute closed angle glaucoma, septal and trigeminal neuralgia, sinusitis, closed head injury, and stroke Given what I see, I do think some advanced imaging is needed. 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 I do think a pro calcitonin,CRP is also helpful. Do not really have the option of at a lumbar puncture given the therapeutic state of his anticoagulation. This would put him at increased risk. I will try some Reglan, for his nausea and also his headache, fluids, little bit of Dilaudid, Benadryl. And we will go ahead and get the MRI per my discussion with Neurology <Elvin Greene MD - Last Filed: 10/16/23 14:41> Life-threatening differential diagnosis include subarachnoid hemorrhage, meningitis, encephalitis, carbon monoxide poisoning, and intracerebral hemorrhage. Other differential diagnosis include but not limited to migraine, cluster headache, tension headache, DOUGH BRAKE MACHINE OPERATOR vasculitis, mass lesion, temporal arteritis, click acute closed angle glaucoma, septal and trigeminal neuralgia, sinusitis, closed head injury, and stroke Given what I see, I do think some advanced imaging is needed. 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 I do think a pro calcitonin,CRP is also helpful. Do not really have the option of at a lumbar puncture given the therapeutic state of his anticoagulation. This would put him at increased risk. I will try some Reglan, for his nausea and also his headache, fluids, little bit of Dilaudid, Benadryl. And we will go ahead and get the MRI per my discussion with Neurology 1610: Patient initially seen by Dr. Greene for severe headache. At this time patient states now feeling just a regular headache and is improved. Currently awaiting MRI/MRA. Previous physician had been in consultation with Neurology. Normal mentation. Patient returned from MRI with increased headache. Did order repeat Dilaudid 0.5 mg, Reglan 10 mg IV piggyback as well as Benadryl 25 mg as this seemed to his helped his headache previously. Concern regarding possibly micro hemorrhages on MRI. Blood pressure has now crease to 209 systolic immediately prior to administration of pain medication. Will repeat blood pressure however, have ordered nicardipine to titrate to systolic blood pressure of 160 with ultimate goal of 140. Awaiting discussion with Neurology at this point. 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 Have pushed these films to Neurology for our discussion. Have spoken with Neurology . At this time agrees with nicardipine with a goal of lowering systolic blood pressure to 140. Concern regarding microhemorrhages and thus normal neurologist recommends repeat CT without contrast. Patient is currently on warfarin and thus will likely on Kcentra for reversal. Pain improved. Nicardipine has been started and blood pressure has decreased to 161/120. CT does show and confirms subarachnoid hemorrhage. Currently awaiting Neurology as well as cardiology consult. INR yesterday at 0100 hours today was 2.1. Considering use of Kcentra verses vitamin K and have asked for Cardiology consult as this gentleman has a mechanical heart valve. I did discuss this patient with Dr. Sterling, cement grinding mill operator at [facility] who accepts the patient in transfer. Assessment/plan: 1. Subarachnoid hemorrhage-patient had onset of headache on October 10. Increasing pain in upper neck and right sided headache over the last 48 hours. At 0100 hours today patient had a CT negative for acute bleed. He return to this afternoon and MRI/MRA positive for hemorrhage. Confirmed with CT noncontrast. At this time have spoken with cement grinding mill operator in regards to anticoagulation reversal. Patient currently taking warfarin. Will give dose of Kcentra 1500 mg as well as 10 mg IV vitamin K. 2. Hypertension-patient presents with blood pressure of 175 initially and slowly climbed to 209. Nicardipine initiated with a goal of 140 systolic. Blood pressure currently 155 systolic. 3. Chronic anticoagulation-patient has a mechanical heart valve requiring chronic anticoagulation with an INR around 2. INR this morning was 2.11. I have discussed with patient need for reversal. Please see 1. For further instructions. 4. Headache-patient's pain has been controlled with doses of Dilaudid, Reglan and Benadryl. Additional Dilaudid 0.5 mg sent with EMS. 5. Disposition-ALS transfer to [facility]. Dr. Sterling accepting physician. <Torie Blackwell MD - Last Filed: 10/16/23 21:56> Differential Diagnosis Differential diagnosis: Likely migraine, tension headache, subarachnoid hemorrhage, headache, meningitis, sinusitis and postconcussion syndrome <Elvin Greene MD - Last Filed: 10/16/23 14:41> Medical Records Attestation: I reviewed the patient's medical records. <Elvin Greene MD - Last Filed: 10/16/23 14:41> Lab Data Attestation: I reviewed the patient's lab results. <Elvin Greene MD - Last Filed: 10/16/23 14:41> Labs: Lab Results 10/16/23 Range/Units 13:05 WBC 9.60 (4.50-11.00) K/uL RBC 4.93 (4.30-5.90) m/uL Hgb 15.1 (13.5-17.5) gm/dL Hct 43.1 (37.0-53.0) % MCV 87 (80-100) fL MCH 31 (26-34) pg MCHC 35 (32-36) gm/dL RDW Coeff of Hortencia 14.6 (11.5-15.5) % Plt Count 323 (140-440) K/uL Neut % (Auto) 84.9 H (42.0-72.0) % Lymph % (Auto) 12.7 L (20-44) % [place] % (Auto) 2.0 (0.0-11.0) % Eos % (Auto) 0.0 (0.0-7.0) % Baso % (Auto) 0.1 (0.0-3.0) % Neut # (Auto) 8.20 H (1.7-7.0) K/uL Lymph # (Auto) 1.20 (0.90-2.90) K/uL [place] # (Auto) 0.20 (0.00-0.90) K/UL Eos # (Auto) 0.00 (0.00-0.50) K/uL Baso # (Auto) 0.01 (0.00-0.30) K/uL Abs Immat Gran (auto) 0.03 (0.00-0.30) K/uL Imm/Tot Granulo (auto) 0.3 % INR 1.97 H (0.91-1.10) Sodium 128 L (135-149) mmol/L Potassium 4.4 (3.6-5.1) mmol/L Chloride 96 (96-114) mmol/L Carbon Dioxide 20 (20-32) mmol/L Anion Gap 12 (7-15) mEq/L BUN 17 (7-30) mg/dL Creatinine 0.9 (0.5-1.5) mg/dL Estimated Creat Clear 94.63 Estimated GFR 100 ml/min Glucose 144 H (60-115) mg/dL Lactate 2.0 H (0.5-1.9) mmol/L Calcium 9.9 (8.4-10.6) mg/dL Total Bilirubin 1.2 (0.1-1.5) mg/dL Direct Bilirubin 0.5 (0.0-0.5) mg/dL AST 39 H (12-35) U/L ALT 30 (4-50) U/L Alkaline Phosphatase 63 (40-150) U/L C-Reactive Protein 0.9 (0.5-1.0) mg/dL Total Protein 9.5 H (6.0-8.3) g/dL Albumin 5.6 H (3.3-5.0) g/dL Procalcitonin 0.06 (<0.50) ng/mL <Elvin Greene MD - Last Filed: 10/16/23 14:41> Lab Results 10/16/23 Range/Units 13:05 WBC 9.60 (4.50-11.00) K/uL RBC 4.93 (4.30-5.90) m/uL Hgb 15.1 (13.5-17.5) gm/dL Hct 43.1 (37.0-53.0) % MCV 87 (80-100) fL MCH 31 (26-34) pg MCHC 35 (32-36) gm/dL RDW Coeff of Hortencia 14.6 (11.5-15.5) % Plt Count 323 (140-440) K/uL Neut % (Auto) 84.9 H (42.0-72.0) % Lymph % (Auto) 12.7 L (20-44) % [place] % (Auto) 2.0 (0.0-11.0) % Eos % (Auto) 0.0 (0.0-7.0) % Baso % (Auto) 0.1 (0.0-3.0) % Neut # (Auto) 8.20 H (1.7-7.0) K/uL Lymph # (Auto) 1.20 (0.90-2.90) K/uL [place] # (Auto) 0.20 (0.00-0.90) K/UL Eos # (Auto) 0.00 (0.00-0.50) K/uL Baso # (Auto) 0.01 (0.00-0.30) K/uL Abs Immat Gran (auto) 0.03 (0.00-0.30) K/uL Imm/Tot Granulo (auto) 0.3 % INR 1.97 H (0.91-1.10) Sodium 128 L (135-149) mmol/L Potassium 4.4 (3.6-5.1) mmol/L Chloride 96 (96-114) mmol/L Carbon Dioxide 20 (20-32) mmol/L Anion Gap 12 (7-15) mEq/L BUN 17 (7-30) mg/dL Creatinine 0.9 (0.5-1.5) mg/dL Estimated Creat Clear 94.63 Estimated GFR 100 ml/min Glucose 144 H (60-115) mg/dL Lactate 2.0 H (0.5-1.9) mmol/L Calcium 9.9 (8.4-10.6) mg/dL Total Bilirubin 1.2 (0.1-1.5) mg/dL Direct Bilirubin 0.5 (0.0-0.5) mg/dL AST 39 H (12-35) U/L ALT 30 (4-50) U/L Alkaline Phosphatase 63 (40-150) U/L C-Reactive Protein 0.9 (0.5-1.0) mg/dL Total Protein 9.5 H (6.0-8.3) g/dL Albumin 5.6 H (3.3-5.0) g/dL Procalcitonin 0.06 (<0.50) ng/mL <Torie Blackwell MD - Last Filed: 10/16/23 21:56> Imaging Data MRI: Attestation: I have reviewed the pertinent imaging results. <Torie Blackwell MD - Last Filed: 10/16/23 21:56> Radiologist's impression: There is no restricted diffusion in the brain to indicate the presence of acute ischemia. No evidence of significant mass effect or midline shift. Within sulci of the parasagittal parietal lobes, there is incomplete suppression of CSF signal on FLAIR imaging with associated susceptibility artifact in which a small amount of subarachnoid hemorrhage is not excluded. In addition, there is a small amount of susceptibility artifact within sulci of the right frontal lobe and right greater than left inferior parietal lobules suggestive of subarachnoid hemorrhage of unknown chronicity and within the dependent portions of the lateral ventricles favored to reflect trace intraventricular hemorrhage of unknown chronicity. Susceptibility artifact is also seen along the folia of both cerebellar hemisphere. There are several scattered foci of susceptibility artifact within the brain parenchyma, likely reflecting chronic microhemorrhages, including the subcortical white matter of the left frontal lobe, deep/periventricular white matter of the left frontal lobe, and subcortical white matter of the posterior right temporal lobe. Brain parenchymal volume is within normal limits for patient age. The ventricles are normal in size and morphology. No pathologic intracranial enhancement. 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 Scattered T2/FLAIR hyperintensities in the white matter of both hemispheres, nonspecific but most likely reflecting sequela of very mild chronic small vessel ischemia. The orbits are unremarkable. The paranasal sinuses are unremarkable. The mastoid air cells are clear. The calvarium is unremarkable. IMPRESSION: 1. Incomplete suppression of CSF signal on FLAIR with associated susceptibility artifact within sulci of the parasagittal parietal lobes, as above, suggests a small amount of subarachnoid hemorrhage. In addition, there are findings suggestive of more chronic subarachnoid hemorrhage within sulci of both cerebral hemispheres as well as within folia of the cerebellar hemispheres. Findings are nonspecific but may reflect an underlying source of recurrent hemorrhage, such as RCVS, cerebral amyloid (although patient is relatively young for this diagnosis), or cortical vein thrombosis. Further assessment with unenhanced head CT examination as well as CTA of the head and neck is recommended. 2. Several scattered chronic microhemorrhages within the brain parenchyma, as above, in a nonspecific distribution. 3. Findings most consistent with sequela of mild chronic small vessel ischemia. <Torie Blackwell MD - Last Filed: 10/16/23 21:56> MRA: Attestation: I have reviewed the pertinent imaging results. 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 The intracranial right vertebral artery, basilar trunk, and posterior cerebral arteries are within normal limits. The petrous, cavernous, and supraclinoid segments of the internal carotid arteries are within normal limits. The anterior and middle cerebral arteries are within normal limits. The anterior communicating artery is visualized and within normal limits. No evidence of cerebral aneurysm or findings to suggest an arterial-venous shunting lesion. 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 While this may be atherosclerotic in nature, propagation of the presumed dissection of the distal cervical left vertebral artery is not excluded. Further assessment with CTA imaging is recommended. <Torie Blackwell MD - Last Filed: 10/16/23 21:56> CT scan - head: Attestation: I have reviewed the pertinent imaging results. <Torie Blackwell MD - Last Filed: 10/16/23 21:56> Radiologist's impression: Findings: Hyperdensities along the bilateral pars marginalis (sulci) compatible with subarachnoid hemorrhages. No evidence of acute cortical infarction. No mass effect or midline shift. Normal cerebral volume. The ventricles are normal in size, shape and contour. There is normal reyes and white matter differentiation. The orbital contents are normal. No calvarial fractures. No lytic or sclerotic osseous lesions within the calvarium or skull base. Scalp and other imaged soft tissue structures are normal. Mastoid air cells are clear. Paranasal sinuses are well aerated. Impression: Hyperdensities along the bilateral pars marginalis (sulci) compatible with subarachnoid hemorrhages. <Torie Blackwell MD - Last Filed: 10/16/23 21:56> Critical Care Time Critical Care Time Critical Care Time: Yes Attestation: The patient required my highest level preparedness to intervene emergently and I personally spent this critical care time directly and personally managing the patient. This critical care time included: Obtaining a history; Examining the patient; Pulse oximetry; Ordering and reviewing of studies; Arranging urgent treatment with development of a management plan; Evaluation of patients response to treatment; Frequent reassessment discussions with other providers. This critical care time was performed to assess and manage the high probability of imminent life-threatening deterioration that could result in multiorgan failure. It was exclusive of separate billable procedures and treating other patients and teaching time. <Torie Blackwell MD - Last Filed: 10/16/23 21:56> Total Critical Care Time in Minutes: 45 <Torie Blackwell MD - Last Filed: 10/16/23 21:56> Discharge Plan Discharge Clinical Impression: Subarachnoid hemorrhage, Chronic anticoagulation, Mechanical heart valve present <Elvin Greene MD - Last Filed: 10/16/23 14:41> Patient Disposition: [facility] <Elvin Greene MD - Last Filed: 10/16/23 14:41> Discharge Location: [facility] <Elvin Greene MD - Last Filed: 10/16/23 14:41> Condition: Improved <Elvin Greene MD - Last Filed: 10/16/23 14:41> Prescriptions: No Action metoprolol succinate 50 mg tablet extended release 24 hr 50 mg PO DAILY warfarin 3 mg tablet See Rx Instructions .ROUTE .COMPLEX Rx Instructions: as directed rosuvastatin 20 mg tablet 20 mg PO QDAY Patient Comments: Take 1 Tablet (20 mg) by mouth once daily. famotidine 40 mg tablet 40 mg PO DAILY Patient Comments: Take 1 Tablet (40 mg) by mouth once daily. Take this 30 minutes before your largest meal of the day. nitroglycerin 0.4 mg tablet, sublingual 0.4 mg sublingual Q5M PRN aspirin 81 mg tablet,delayed release (DR/EC) 81 mg PO QDAY diltiazem HCl 30 mg tablet 30 mg PO Q6H PRN (Reason: atrial fibrillation) Qty: 10 0RF <Elvin Greene MD - Last Filed: 10/16/23 14:41> Stand Alone Forms: MyHealth Info Instructions <Elvin Greene MD - Last Filed: 10/16/23 14:41>
[2023-10-16] MEDS: diphenhydrAMINE 50 MG/ML inj 25 MG IVP ×2 (13:40→18:33)
[2023-10-16] MEDS: HYDROmorphone 0.5 mg/0.5 ml inj IVP ×4 (13:40→20:25)
[2023-10-16] MEDS: KETOROLAC 30 MG/ML inj IVP (13:40)
[2023-10-16 13:48] LABS: Albumin* 5.6 g/dL (3.3-5.0); Chloride* 96 mmol/L (96-114)
[2023-10-16 13:49] LABS: Potassium* 4.4 mmol/L (3.6-5.1); Sodium* 128 mmol/L (135-149)
[2023-10-16 13:51] LABS: Creatinine* 0.9 mg/dL (0.5-1.5); Est. Creatinine Clearance* 94.63; Estimated Glomerular Filt Rate 100 ml/min
--- NOTE | 2023-10-16 13:51 | CRLHL7_ITS ---
For Patients: As a result of the Century Cures Act, medical imaging exams and procedure reports are released immediately into your electronic medical record. You may view this report before your referring provider. If you have questions, please contact your health care provider. CLINICAL HISTORY: Right-sided occipital headache. TECHNIQUE: 3D TOF MRA of the head was performed. 3D MIP reformats were performed at an independent workstation. COMPARISON: None available. 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 The intracranial right vertebral artery, basilar trunk, and posterior cerebral arteries are within normal limits. The petrous, cavernous, and supraclinoid segments of the internal carotid arteries are within normal limits. The anterior and middle cerebral arteries are within normal limits. The anterior communicating artery is visualized and within normal limits. No evidence of cerebral aneurysm or findings to suggest an arterial-venous shunting lesion. 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 While this may be atherosclerotic in nature, propagation of the presumed dissection of the distal cervical left vertebral artery is not excluded. Further assessment with CTA imaging is recommended. Dictated by Aniceto Carbajal MD @ 10/16/2023 6:27:17 PM (Electronically Signed)
--- NOTE | 2023-10-16 13:51 | CRLHL7_ITS ---
For Patients: As a result of the 21st Century Cures Act, medical imaging exams and procedure reports are released immediately into your electronic medical record. You may view this report before your referring provider. If you have questions, please contact your health care provider. CLINICAL HISTORY: Right-sided occipital headache. TECHNIQUE: Multi-sequence, multiplanar MRI examination of the brain was performed. Contrast: 20mL of Dotarem was administered intravenously. COMPARISON: None available. FINDINGS: There is no restricted diffusion in the brain to indicate the presence of acute ischemia. No evidence of significant mass effect or midline shift. Within sulci of the parasagittal parietal lobes, there is incomplete suppression of CSF signal on FLAIR imaging with associated susceptibility artifact in which a small amount of subarachnoid hemorrhage is not excluded. In addition, there is a small amount of susceptibility artifact within sulci of the right frontal lobe and right greater than left inferior parietal lobules suggestive of subarachnoid hemorrhage of unknown chronicity and within the dependent portions of the lateral ventricles favored to reflect trace intraventricular hemorrhage of unknown chronicity. Susceptibility artifact is also seen along the folia of both cerebellar hemisphere. There are several scattered foci of susceptibility artifact within the brain parenchyma, likely reflecting chronic microhemorrhages, including the subcortical white matter of the left frontal lobe, deep/periventricular white matter of the left frontal lobe, and subcortical white matter of the posterior right temporal lobe. Brain parenchymal volume is within normal limits for patient age. The ventricles are normal in size and morphology. No pathologic intracranial enhancement. 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 Scattered T2/FLAIR hyperintensities in the white matter of both hemispheres, nonspecific but most likely reflecting sequela of very mild chronic small vessel ischemia. The orbits are unremarkable. The paranasal sinuses are unremarkable. The mastoid air cells are clear. The calvarium is unremarkable. IMPRESSION: 1. Incomplete suppression of CSF signal on FLAIR with associated susceptibility artifact within sulci of the parasagittal parietal lobes, as above, suggests a small amount of subarachnoid hemorrhage. In addition, there are findings suggestive of more chronic subarachnoid hemorrhage within sulci of both cerebral hemispheres as well as within folia of the cerebellar hemispheres. Findings are nonspecific but may reflect an underlying source of recurrent hemorrhage, such as RCVS, cerebral amyloid (although patient is relatively young for this diagnosis), or cortical vein thrombosis. Further assessment with unenhanced head CT examination as well as CTA of the head and neck is recommended. 2. Several scattered chronic microhemorrhages within the brain parenchyma, as above, in a nonspecific distribution. 3. Findings most consistent with sequela of mild chronic small vessel ischemia. Dictated by Aniceto Carbajal MD @ 10/16/2023 6:17:34 PM (Electronically Signed)
[2023-10-16 13:52] LABS: Alanine Aminotransferase* 30 U/L (4-50); Alkaline Phosphatase* 63 U/L (40-150); Anion Gap 12 mEq/L (7-15); Aspartate Amino Transferase* 39 U/L (12-35); Bilirubin Direct* 0.5 mg/dL (0.0-0.5); Bilirubin Total* 1.2 mg/dL (0.1-1.5); Blood Urea Nitrogen* 17 mg/dL (7-30); Calcium* 9.9 mg/dL (8.4-10.6); Carbon Dioxide* 20 mmol/L (20-32); Glucose* 144 mg/dL (60-115); Total Protein* 9.5 g/dL (6.0-8.3)
[2023-10-16 13:55] LABS: C Reactive Protein* 0.9 mg/dL (0.5-1.0)
[2023-10-16] MEDS: METOCLOPRAMIDE HCL 10 MG in 0.9 % SODIUM CHLORIDE 100 ml 100 ML 306 MG IVPB ×2 (14:03→18:34)
[2023-10-16 14:09] LABS: Procalcitonin* 0.06 ng/mL (<0.50)
--- NOTE | 2023-10-16 18:53 | CRLHL7_ITS ---
For Patients: As a result of the Century Cures Act, medical imaging exams and procedure reports are released immediately into your electronic medical record. You may view this report before your referring provider. If you have questions, please contact your health care provider. Indication: Headache, possible subarachnoid hemorrhage. Technique: CT of the head without contrast. Coronal and sagittal reformats. Bone and soft tissue windows. Comparison: No prior studies available for comparison at this institution. Findings: Hyperdensities along the bilateral pars marginalis (sulci) compatible with subarachnoid hemorrhages. No evidence of acute cortical infarction. No mass effect or midline shift. Normal cerebral volume. The ventricles are normal in size, shape and contour. There is normal reyes and white matter differentiation. The orbital contents are normal. No calvarial fractures. No lytic or sclerotic osseous lesions within the calvarium or skull base. Scalp and other imaged soft tissue structures are normal. Mastoid air cells are clear. Paranasal sinuses are well aerated. Impression: Hyperdensities along the bilateral pars marginalis (sulci) compatible with subarachnoid hemorrhages. Please note that all CT scans at this facility use dose modulation, iterative reconstruction, and/or weight-based dosing when appropriate to reduce radiation dose to as low as reasonably achievable. Dictated by Mehran Husani MD @ 10/16/2023 7:41:01 PM (Electronically Signed)
[2023-10-16] MEDS: NICARDIPINE HCL 25 MG in 0.9 % SODIUM CHLORIDE 250 ml 240 ML 50 MG IVPB (19:20)
[2023-10-16 20:23] LABS: INR 1.97 (0.91-1.10); Prothrombin Time 23.8 Seconds
[2023-10-16] MEDS: PHYTONADIONE (VIT K1) 10 MG in 0.9 % SODIUM CHLORIDE 50 ml 50 ML 100 MG IVPB (21:24)
== END 2023-10-16 21:50 | disposition short-term general hospital (02) ==
PROVIDERS: Family Medicine; Emergency Provider Family Medicine; PCP Family Medicine
DX: I60.9 Nontraumatic subarachnoid hemorrhage, unspecified (principal); Z79.01 Long term (current) use of anticoagulants; Z95.2 Presence of prosthetic heart valve
CPT/HCPCS: 36415; 70450; 70544; 70549; 70553; 80048; 80076; 83605; 84145; 85025; 85610; 86140; 86618; 86789; 87040; 87631; 93005; 94761; 96365; 96367; 96375; 99284; 99285; 99291; A9270; A9575; J1170; J1200; J1885; J2405; J2765; J2919; J3430; J7030; J7050; J7168

== ENCOUNTER 2023-10-16 21:36 | Outpatient (CLI) | payer OTHER, SELFPAY | END 2023-10-16 21:37 | disposition home or self-care (01) | LOC: AMB 10-20 19:27 | PROVIDERS: PCP Family Medicine; Visit Provider Emergency Medicine | DX: I60.9 Nontraumatic subarachnoid hemorrhage, unspecified (principal) | CPT/HCPCS: A0425; A0427 ==

== ENCOUNTER 2024-01-19 23:56 | Inpatient (IN) | payer OTHER, SELFPAY ==
[2024-01-20] VITALS (23 sets, daily range): BP systolic 98–143; BP diastolic 62–92; PULSE 56–108; RESP 18–22; TEMP 36.2–36.8; O2SAT 93–97; BMI 31.6; BMI 33.6
--- NOTE | 2024-01-20 00:11 | ED.ARRPALP ---
HPI - Arrhythmia/Palpitations General Time Seen by Provider: 00:11 Date Seen: 01/20/24 Chief Complaint: Arrhythmia/Palpitations Stated Complaint: afib Time Seen by Provider: 01/19/24 23:57 Source: patient, family, RN notes reviewed and old records reviewed Mode of arrival: ambulatory Limitations: no limitations History of Present Illness HPI narrative: This patient seen in the emergency room during expanse down time. Chet is a very pleasant 58-year-old gentleman with complicated past medical history including of aortic valve replacement, currently anticoagulated with warfarin, history of atrial fibrillation and history of subarachnoid hemorrhage of unknown etiology in October of this year who comes to the emergency room not feeling well with palpitations. Patient notes the onset of palpitations at approximately 2100 hours. He did take a dose of diltiazem at home but unfortunately it did not resolve. He notes no chest pain but has shortness of breath that he noticed when climbing stairs. His last INR was therapeutic but that was a few weeks ago. His INR supposed to be between 2-3 but is acceptable closer to 2 as he did experience a subarachnoid hemorrhage in October. At that time he had had a headache after what they believe a hard sneeze. He was seen at [facility] had 2- CTs, an MRI that suggested hyperdensities and finally a CT that did show subarachnoid hemorrhage. He was a transfer to [facility] at which time he underwent numerous studies but no etiology of the bleeding was found and it was assumed that it was a bleeding vessel. Upon discharge Chet had headache that persisted but gradually improved. Unfortunately he has had increasing headache over the last 1-2 weeks and states he really just has not been feeling very well. He had initially seen his primary MD but since then his headache has worsened. He describes it in a cap life or top of the head distribution which is different from the subarachnoid hemorrhage in October where he had more pain in the back of his head. This is associated with some lightheadedness and mild nausea at times. He describes being out walking and getting lightheaded and feeling like his feet are not going in the right spot. Related Data Home Medications ?Medication ?Instructions ?Recorded ?Confirmed aspirin 81 mg tablet,delayed 81 mg PO DAILY 06/19/22 01/20/24 release famotidine 40 mg tablet 40 mg PO DAILY 06/19/22 01/20/24 metoprolol succinate 50 mg 50 mg PO DAILY 06/19/22 01/20/24 tablet,extended release 24 hr nitroglycerin 0.4 mg sublingual 0.4 mg sublingual Q5M PRN 06/19/22 01/20/24 tablet warfarin 3 mg tablet 4.5 - 6 mg PO DAILY 06/19/22 01/20/24 rosuvastatin 40 mg tablet 40 mg PO HS 01/20/24 01/20/24 sildenafil 50 mg tablet 50 - 100 mg PO DAILY PRN 01/20/24 01/20/24 Previous Rx's ?Medication ?Instructions ?Recorded diltiazem HCl 30 mg tablet 30 mg PO Q6H PRN atrial 04/22/23 fibrillation #10 tabs diltiazem HCl 240 mg 240 mg PO DAILY #30 caps 01/21/24 capsule,extended release 24 hr, controlled (DILT-XR) Allergies Allergy/AdvReac Type Severity Reaction Status Date / Time No Known Drug Allergies Allergy Verified 10/16/23 12:57 Review of Systems Status of ROS: Reports: 10 or more systems reviewed and unremarkable except as noted in History and below Const: Reports: fatigue; Denies: fever or chills Eyes: Denies: change in vision ENMT: Denies: throat pain, neck pain, nasal discharge or nasal congestion Cardio: Reports: palpitations, lightheadedness and shortness of breath with exertion; Denies: chest pain or swelling of feet/ankles Resp: Reports: shortness of breath; Denies: cough or wheezing GI: Reports: nausea; Denies: abdominal pain, vomiting or diarrhea : Denies: painful urination Musculo: Denies: back pain or neck pain Integ/Breast: Denies: rash Neuro: Reports: headache Endo: Reports: fatigue Allergy/Immuno: Denies: wheezing [facility] Medical History (Updated 01/21/24 @ 14:23 by Evelyn Herrera MD) Cervical spine pain ?M54.2 - Cervicalgia (ICD-10) 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 (ICD-10) History of aortic valve stenosis ?Z86.79 - Personal history of other diseases of the circulatory system (ICD-10) History of Hodgkin's lymphoma ?Z85.71 - Personal history of Hodgkin lymphoma (ICD-10) History of subarachnoid hemorrhage ?Z86.79 - Personal history of other diseases of the circulatory system (ICD-10) Surgical History (Updated 01/20/24 @ 11:42 by Evelyn Herrera MD) History of mechanical aortic valve replacement ?Z95.2 - Presence of prosthetic heart valve (ICD-10) 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) ?R22.1 - Localized swelling, mass and lump, neck (ICD-10) ?Z85.9 - Personal history of malignant neoplasm, unspecified (ICD-10) History of open heart surgery (01/24/22) ?Z98.890 - Other specified postprocedural states (ICD-10) Social History What is your current living situation?: I presently have a place to live Problems where you live: no known problems Problems where you live details: none In the past 12 months, utilities in danger of being shut off: no In past 12 months, lack of transportation kept you from medical appts, meetings, work, or getting things needed for daily living: no In the past 12 mos, have been you worried that your food would run out before you had money to buy more?: never true In the past 12 mos, the food you bought just didn't last and you didn't have money to buy more?: never true Smoking Status: Never smoker Do you use any of these nicotine containing products: None Second hand tobacco smoke exposure: No How often do you have a drink containing alcohol: 2-3 times a week How many standard drinks containing alcohol do you have on a typical day: 1 or 2 AUDIT-C Alcohol total score: 3 Non-prescribed substance use: denies use How often does anyone, including family, friends and others, physically hurt you: never How often does anyone, including family, friends and others, insult or talk down to you: never How often does anyone, including family, friends and others, threaten you with harm: never How often does anyone, including family, friends and others, scream or curse at you: never Exam Narrative: Exam Narrative: Alert and oriented. Somewhat fatigued in appearance. EOM is full. Face symmetrical. Mentation and speech normal. Neck with full range of motion. No guarding. Neck is supple. Heart with a irregularly irregular rhythm, elevated heart rate at 120 lungs are clear bilaterally. Murmur with click auscultated. Abdomen is soft nontender. Lower extremities without edema. Moving all extremities. Const: Vital Signs, click to edit/add: Vital Signs - 24 hr 01/20/24 00:02 Temperature 97.9 F Pulse Rate [Pulse Oximeter] 108 H Respiratory Rate 22 Blood Pressure [Ri ght Upper Arm] 98/76 Pulse Oximetry 96 Oxygen Delivery Me thod Room Air Documenting provider has reviewed patient's vital signs: yes Course Course ED Course: At this time patient is presenting with atrial fibrillation as well as worsening headache over the past 2 weeks in the setting of recent subarachnoid hemorrhage in October of this year. As spoken with Neurology in regards to CT versus CT and CTA. At this time Dr. Azevedo feels CT without contrast would be sufficient. She was able to review cerebral angiogram and does not feel that the CTA would be helpful as aneurysms were ruled out. If negative she does suggest MRI in light of events in October. Currently ordered are CBC, comprehensive, head CT, EKG, magnesium, cardiac monitoring, IV placement. Reevaluation(s) Reevaluation #1: At this time patient presents with blood pressure 98 systolic and heart rate ranging between 110-120. At this time will order normal saline for fluid replacement. Blood pressures improved somewhat to 108 systolic and now heart rate is at 140s. Have ordered Cardizem 10 mg IV bolus. This did improve heart rate to 70s. Patient was asymptomatic to the persisting atrial fibrillation. Heart rate began to rise once again and we did start a Cardizem drip. INR subtherapeutic at 1.73. Magnesium is 1.9. Magnesium 1 g IV ordered. Consultations Consultation #1: At the pleasure of speaking with Dr. Galicia Cardiology. Notes that the aortic valve that Chet has allows 1 to tolerate INR 1.5 to 2 and above. Chet has a therapeutic window of 2-3 with suggestion to keep the INR closer to 2 in light of the subarachnoid hemorrhage. He is subtherapeutic tonight. Dr. Galicia notes that he would not cardiovert without CT or MADDY to rule out cardiac thrombus. He does suspect that patient will convert to sinus rhythm in the next 24 hours. If this does not happen suggests transfer to [facility] for MADDY and cardioversion. Vital Signs Vital signs: Initial Vital Signs Temperature 97.9 F 01/20/24 00:02 Temperature Source Temporal Artery Scan 01/20/24 00:02 Pulse Rate 108 H 01/20/24 00:02 Pulse Rhythm Regular 01/20/24 00:02 Respiratory Rate 22 01/20/24 00:02 Blood Pressure 98/76 01/20/24 00:02 Blood Pressure Mean 83 01/20/24 00:02 Blood Pressure Position Sitting 01/20/24 00:02 Pulse Oximetry 96 01/20/24 00:02 Oxygen Delivery Method Room Air 01/20/24 00:02 Vital Signs Temperature 97.9 F 01/20/24 00:02 Pulse Rate 108 H 01/20/24 00:02 Respiratory Rate 22 01/20/24 00:02 Blood Pressure 98/76 01/20/24 00:02 Pulse Oximetry 96 01/20/24 00:02 Oxygen Delivery Method Room Air 01/20/24 00:02 Temperature 97.2 F L 01/21/24 08:00 Pulse Rate 76 01/21/24 08:00 Respiratory Rate 18 01/21/24 08:00 Blood Pressure 140/90 H 01/21/24 08:00 Pulse Oximetry 96 01/21/24 08:00 Oxygen Delivery Method Room Air 01/21/24 08:00 Medications Administered Medications: Discontinued Medications Generic Name Dose Route Start Last Admin Trade Name Freq PRN Reason Stop Dose Admin Diltiazem HCl 10 mg 01/20/24 02:30 01/20/24 01:30 Diltiazem 5 Mg/Ml Inj IVP 01/20/24 02:31 10 mg ONCE ONE Administration Diltiazem HCl 120 mg 01/20/24 11:45 01/20/24 12:37 Diltiazem 120 Mg Cap.Er.24h PO 120 mg DAILY LOVELY Administration Diltiazem HCl 240 mg 01/20/24 17:00 01/21/24 08:27 Diltiazem 120 Mg Cap.Er.24h PO 240 mg DAILY LOVELY Administration Famotidine 40 mg 01/20/24 09:00 01/21/24 08:27 Famotidine 20 Mg Tablet PO 40 mg DAILY LOVELY Administration Sodium Chloride 1,000 mls @ 1,000 mls/hr 01/20/24 00:26 01/20/24 04:59 0.9 % Sodium Chloride 1000 Ml IV 01/20/24 01:25 Infused .Q1H LOVELY Infusion Diltiazem HCl 125 mg/ Sodium 125 mls @ 5 mls/hr 01/20/24 04:50 01/20/24 13:20 Chloride IVPB 0 mls/hr .TITRATE LOVELY Infusion Protocol Magnesium Sulfate/Dextrose 1 gm in 100 mls @ 100 mls/hr 01/20/24 04:00 01/20/24 06:05 Magnesium Sulf 1 G/100 Ml-D5w IVPB 01/20/24 04:59 Infused ONCE ONE Infusion Melatonin 3 - 6 mg 01/20/24 20:12 01/20/24 21:21 Melatonin 3 Mg Tablet PO 6 mg HS PRN Administration Metoprolol Succinate 50 mg 01/20/24 09:00 01/21/24 08:27 Metoprolol Succinate (Xl) 50 Mg Tab PO 50 mg DAILY LOVELY Administration Perflutren Lipid Microsphere 2 ml 01/20/24 12:44 01/20/24 12:45 Perflutren Lipid Microspheres 2 Ml Vial IV 01/20/24 12:45 2 ml ONCE ONE Administration Sodium Chloride 5 ml 01/20/24 09:00 01/21/24 08:29 Sodium Chloride 0.9 % (Flush) 10 Ml Syringe IVF Not Given BID LOVELY Warfarin Sodium 6 mg 01/20/24 17:00 01/20/24 16:32 Warfarin 3 Mg Tablet PO 01/20/24 17:01 6 mg DAILYC LOVELY Administration MDM - Arrhythmia/Palpitations MDM Narrative Medical decision making narrative: 1. Atrial fibrillation with RVR-blood pressures initially 98 systolic, 2 L normal saline given, blood pressure increased to 108. Diltiazem 10 mg IV given as heart rate was in the 140s. Heart rate slowed to 70s. Unfortunately patient did not convert to a sinus rhythm. Diltiazem drip initiated. Magnesium 1 g given as magnesium was 1.9. At this time patient has not converted to sinus rhythm and therefore would be admitted to the hospital. As he is subtherapeutic on his INR not a candidate for cardioversion at this time. 2. Headache-patient has history of subarachnoid hemorrhage in October of this year. Unknown etiology after extensive workup at [facility] head CT did not show evidence of new bleed. I spoke with Neurology and they do suggest follow-up MRI. MRA and or contrast not required per neurology. 3. Anticoagulation-INR subtherapeutic at 1.73. Spoke with Hospital about increasing Coumadin dosing. 4. Disposition-admission to the [facility] under the care of hospitalist. Medical Records Attestation: I reviewed the patient's medical records. Lab Data Attestation: I reviewed the patient's lab results. Labs: Lab Results 01/20/24 Range/Units 00:04 WBC 9.76 (4.50-11.00) K/uL RBC 4.32 (4.30-5.90) m/uL Hgb 13.7 (13.5-17.5) gm/dL Hct 40.6 (37.0-53.0) % MCV 94 (80-100) fL MCH 32 (26-34) pg MCHC 34 (32-36) gm/dL RDW Coeff of Hortencia 15.1 (11.5-15.5) % Plt Count 268 (140-440) K/uL Neut % (Auto) 52.2 (42.0-72.0) % Lymph % (Auto) 35.8 (20-44) % [place] % (Auto) 8.1 (0.0-11.0) % Eos % (Auto) 1.9 (0.0-7.0) % Baso % (Auto) 0.7 (0.0-3.0) % Neut # (Auto) 5.09 (1.7-7.0) K/uL Lymph # (Auto) 3.49 H (0.90-2.90) K/uL [place] # (Auto) 0.80 (0.00-0.90) K/UL Eos # (Auto) 0.19 (0.00-0.50) K/uL Baso # (Auto) 0.07 (0.00-0.30) K/uL Abs Immat Gran (auto) 0.13 (0.00-0.30) K/uL Imm/Tot Granulo (auto) 1.3 % INR 1.73 H (0.91-1.10) Sodium 135 (135-149) mmol/L Potassium 3.9 (3.6-5.1) mmol/L Chloride 101 (96-114) mmol/L Carbon Dioxide 23 (20-32) mmol/L Anion Gap 11 (7-15) mEq/L BUN 24 (7-30) mg/dL Creatinine 1.2 (0.5-1.5) mg/dL Estimated Creat Clear 70.97 Estimated GFR 71 ml/min Glucose 125 H (60-115) mg/dL Calcium 9.3 (8.4-10.6) mg/dL Magnesium 1.9 (1.5-2.6) mg/dL Total Bilirubin 0.1 (0.1-1.5) mg/dL AST 37 H (12-35) U/L ALT 25 (4-50) U/L Alkaline Phosphatase 73 (40-150) U/L Troponin I 0.01 (0.01-0.04) ng/mL C-Reactive Protein < 0.5 L (0.5-1.0) mg/dL Total Protein 7.6 (6.0-8.3) g/dL Albumin 4.8 (3.3-5.0) g/dL Imaging Data Chest x-ray: Attestation: I have reviewed the pertinent imaging results. Radiologist's impression: Cardiovascular/Mediastinum: Normal heart size. Mediastinal surgical clips. Lungs: No focal consolidation. Linear band like opacification lungs bilaterally, likely subsegmental atelectasis and/or scarring. Airways: Trachea remains midline. Pleura: No pleural effusions or pneumothorax. Bones: No acute osseous abnormalities. Median sternotomy wires Upper abdomen: Unremarkable. IMPRESSION: No acute cardiopulmonary process. CT scan - head: Attestation: I have reviewed the pertinent imaging results. My impression: White densities noted especially in the sylvian fissure. I did speak with the radiologist after results were read as normal. My concern was that this represented a new or acute bleed. Radiologist notes that this represents actually calcifications and upon his secondary review again notes no acute bleed. Radiologist's impression: CSF spaces: Within normal limits for age. Brain parenchyma: The carrasco-white differentiation is maintained. No sign of mass, hemorrhage, or midline shift. Skull base and calvarium: The visualized paranasal sinuses and mastoid air cells demonstrate no acute or significant findings. The visualized orbits are grossly unremarkable. No skull fractures. IMPRESSION: No acute intracranial abnormality. ECG Data Attestation: I personally reviewed and interpreted this ECG as follows: ECG interpretation date: 01/20/24 Interpretation: By my read EKG shows atrial fibrillation with RVR at a rate of 129. No ST abnormalities noted. QT interval within normal limits. EKG 2. By my read shows atrial fibrillation at a rate of 78. Normal QT interval. No ST abnormality noted. Critical Care Time Critical Care Time Critical Care Time: Yes Attestation: The patient required my highest level preparedness to intervene emergently and I personally spent this critical care time directly and personally managing the patient. This critical care time included: Obtaining a history; Examining the patient; Pulse oximetry; Ordering and reviewing of studies; Arranging urgent treatment with development of a management plan; Evaluation of patients response to treatment; Frequent reassessment discussions with other providers. This critical care time was performed to assess and manage the high probability of imminent life-threatening deterioration that could result in multiorgan failure. It was exclusive of separate billable procedures and treating other patients and teaching time. Total Critical Care Time in Minutes: 45 Discharge Plan Discharge Clinical Impression: Atrial fibrillation with rapid ventricular response, Headache Patient Disposition: Admitted As Observation Discharge Location: [facility] Condition: Improved Activity Level: Activity as Tolerated Discharge Diet: Regular Diet Detail: No alcohol
--- NOTE | 2024-01-20 00:25 | CRLHL7_ITS ---
For Patients: As a result of the Century Cures Act, medical imaging exams and procedure reports are released immediately into your electronic medical record. You may view this report before your referring provider. If you have questions, please contact your health care provider. INDICATION: Atrial fibrillation with RVR. TECHNIQUE: Chest radiograph, 1 view. COMPARISON: Chest radiograph 04/21/2023. FINDINGS: Cardiovascular/Mediastinum: Normal heart size. Mediastinal surgical clips. Lungs: No focal consolidation. Linear band like opacification lungs bilaterally, likely subsegmental atelectasis and/or scarring. Airways: Trachea remains midline. Pleura: No pleural effusions or pneumothorax. Bones: No acute osseous abnormalities. Median sternotomy wires Upper abdomen: Unremarkable. IMPRESSION: No acute cardiopulmonary process. Dictated by Eron Suresh MD @ 01/20/2024 12:48:24 AM (Electronically Signed)
[2024-01-20 00:41] LABS: Basophils Absolute Auto 0.07 K/uL (0.00-0.30); Basophils Percent Auto 0.7 % (0.0-3.0); Eosinophils Absolute Auto 0.19 K/uL (0.00-0.50); Eosinophils Percent Auto 1.9 % (0.0-7.0); Hematocrit 40.6 % (37.0-53.0); Hemoglobin* 13.7 gm/dL (13.5-17.5); Immature Granulocytes Abs Auto 0.13 K/uL (0.00-0.30); Immature Granulocytes Pct Auto 1.3 %; Lymphocytes Absolute Auto 3.49 K/uL (0.90-2.90); Lymphocytes Percent Auto 35.8 % (20-44); Mean Corpuscular HGB Conc 34 gm/dL (32-36); Mean Corpuscular Hemoglobin 32 pg (26-34); Mean Corpuscular Volume 94 fL (80-100); Monocytes Percent Auto 8.1 % (0.0-11.0); Neutrophils Absolute Auto 5.09 K/uL (1.7-7.0); Neutrophils Percent Auto 52.2 % (42.0-72.0); Platelet Count* 268 K/uL (140-440); RDW Coefficient of Variation % 15.1 % (11.5-15.5); Red Blood Count 4.32 m/uL (4.30-5.90); White Blood Count* 9.76 K/uL (4.50-11.00)
[2024-01-20 00:47] LABS: Slide Review Reflex No
[2024-01-20] MEDS: 0.9 % SODIUM CHLORIDE 1000 ml 1,000 ML IV (00:49)
[2024-01-20 00:50] LABS: Albumin* 4.8 g/dL (3.3-5.0); Chloride* 101 mmol/L (96-114); Sodium* 135 mmol/L (135-149)
[2024-01-20 00:51] LABS: Potassium* 3.9 mmol/L (3.6-5.1)
--- OUTSIDE RECORDS SUMMARY | 2024-01-20 00:52 | XMS_ITS | Clinical Summary ---
Author Organization [facility] Address [place], [place] [address] Care Team Providers Care Full Time Name Role Phone Miguel Freitas MD Primary Care Provider [phone]- [phone] Allergies No known active allergies Medications Medication Sig Dispensed Refills Start Date End Date Status acetaminophen (TYLENOL EXTRA STRGTH) 500 mg tablet Take 2 Tablets (1,000 mg) by mouth every 6 hours if needed for Pain or Headache. Max acetaminophen dose: 4000mg in 24 hrs. 0 01/31/20 22 Active rosuvastatin (CRESTOR) 40 mg tabletIndications: Hyperlipidemia, unspecified hyperlipidemia type Take 1 Tablet (40 mg) by mouth at bedtime. 90 Tablet 3 03/13/20 23 Active Additional Information Patient taking differently:40 mg OralDAILY, Informant: Patient's Recall, Reported on 10/17/2023 amoxicillin (AMOXIL) 500 mg capsuleIndications :S/P aortic valve replacement Take 4 tablets by mouth 30-60 min prior to any dental work or cleaning 30 Capsule 04/27/20 23 Active famotidine (PEPCID) 40 mg tabletIndications: Heartburn Take 1 Tablet (40 mg) by mouth once daily. 90 Tablet 3 04/27/20 23 Active nitroglycerin (NITROSTAT) 0.4 mg sublingual tabletIndications: S/P CABG x [address] 1 Tablet (0.4 mg) under the tongue every 5 minutes if needed for Chest Pain. 5 Tablet 04/27/20 23 Active sildenafil citrate (VIAGRA) 50 mg tabletIndications: Erectile dysfunction, unspecified erectile dysfunction type Take 1 Tablet (50 mg) by mouth once daily if needed for Erectile Dysfunction. Take 30min to 4 hours before sexual activity. Max 100mg/24hr 12 Tablet 11 04/27/20 23 Active metoprolol succinate (TOPROL XL) 50 mg sustained-release tabletIndications: PAF (paroxysmal atrial fibrillation) (HC) Take 1 Tablet (50 mg) by mouth once daily. 90 Tablet 3 09/04/19 24 Active MELATONIN ORAL Take 1 Tablet by mouth at bedtime if needed. Active aspirin (ECOTRIN) 81 mg enteric coated tabletIndications: Coronary artery disease involving [place] coronary artery of [place] heart without angina pectoris Take 1 Tablet (81 mg) by mouth once daily. Recommended daily lifelong 10/21/19 24 Active dilTIAZem (CARDIZEM) 30 mg tabletIndications: PAF (paroxysmal atrial fibrillation) (HC) Take 1 tablet every 6 hours as needed for atrial fibrillation. 20 Tablet 2 10/24/19 24 Active amLODIPine (NORVASC) 5 mg tabletIndications: Essential hypertension Take 1 Tablet (5 mg) by mouth once daily. 90 Tablet 3 11/06/19 24 Active warfarin (COUMADIN) 3 mg tabletIndications: S/P aortic valve replacement,S/P CABG x 3,Anticoagulation monitoring, INR range 2-3 Take by mouth 6 mg (3 mg x 2) every Tue; 4.5 mg (3 mg x 1.5) all other days in the evening OR as directed 145 Tablet 01/19/20 24 Active enoxaparin (LOVENOX) 100 mg/mL injectionIndicatio ns:S/P aortic valve replacement,Antico agulation monitoring, INR range 2-3 Inject 100 mg subcutaneous every 12 hours. Can stop medication once INR is between 2-3 4 Each 10/27/19 24 024 Discontinued(*M ed complete/Regime n complete/Level of care change) warfarin (COUMADIN) 3 mg tabletIndications: S/P aortic valve replacement,S/P CABG x 3,Anticoagulation monitoring, INR range 2-3 Take by mouth 6 mg every Tue; 4.5 mg all other days in the evening OR as directed. 10/29/19 24 024 Discontinued Active Problems Problem Noted Date Diagnosed Date Essential hypertension 10/24/2023 SAH (subarachnoid hemorrhage) 10/17/2023 Acute gout of ankle 04/12/2023 PAF (paroxysmal atrial fibrillation) 03/13/2023 S/P aortic valve replacement 01/24/2022 Overview (01/24/2022): VALVE AORTIC 25MM ON-X MECHANICAL STD SEWING RING IMPLANTED BY DR. LANDERS ON 01/24/22 AT 1124. REF: ONXAE-25, SN: [id number], EXP: 06/27/2027 S/P CABG x 3 01/24/2022 Overview (01/24/2022): CABGx3: MAC to LAD, SVG to OM and SVG to RCA Anticoagulation monitoring, INR range 2-3 (goal 2.5) 01/24/2022 Overview (04/05/2022): Goal INR: 2.0 - 3.0. After 3 months, as per Web Marketing Specialist about whether or not INR goal can be decreased to 1.5 -2.0 (per the On-X valve recommendations). Indication: mechanical aortic valve Duration: Lifelong As of 04/05/2022 Dr. Lee of Cardiology recommends we keep his INR at 2-3 indefinitely due to his Retinal Artery Occlusion. Aortic stenosis, moderate to severe 10/14/2021 [place] 09/20/2021 AHI- 10.7 supine 25 09/28/2021 Heartburn 08/17/2021 Erectile dysfunction 08/17/2021 Encounters Date Type Department Care Team Description 01/19/2024 Refill [facility] [address] [place] [address] Miguel Freitas MD Refill Request (Warfarin) 01/07/2024 Nurse Triage [facility] [address] [place] [address] Miguel Freitas MD Bleeding 01/01/2024 11:15 AM CDT Office Visit [facility] [address] [place] [address] Miguel Freitas MD Follow Up (Go over results/Still low on energy and feeling dizzy at times) 01/01/2024 Travel 12/27/2023 10:00 AM CDT Orders Only [facility] [address] [place] [address] [facility] [place] [facility] 12/27/2023 Anticoagulation (warfarin) [facility] [address] [place] [address] [facility] Anticoagulation 12/27/2023 Travel 11/06/2023 Telephone [facility] [address] [place] [address] Miguel Freitas MD Abnormal Lab Results 11/05/2023 10:45 AM CDT Orders Only [facility] [address] [facility] [place] [address] [facility] [place] 11/05/2023 10:00 AM CDT Nurse/Clinic Staff Only [facility] [address] [place] [address] Blood Pressure (119/76) 11/05/2023 Anticoagulation (warfarin) [facility] [address] [place] [address] 1[facility] Anticoagulation 11/05/2023 Travel 10/29/2023 3:00 PM CDT Orders Only [facility] [address] [facility] [place] [address] Lab[facility] [place] 10/29/2023 Anticoagulation (warfarin) [facility] [address] [place] [address] 1, [facility] Anticoagulation 10/29/2023 Travel 10/27/2023 Refill [facility] [address] [place] [address] Miguel Freitas MD Refill Request (Warfarin) 10/27/2023 Telephone [facility] [address] [place] [address] 1[facility] Anticoagulation (BPA Lovenox ) 10/27/2023 Telephone [facility] [address] [place] [address] Miguel Freitas MD Lab (INR APPOINTMENT NEEDED ) 10/26/2023 1:00 PM CDT Orders Only [address] [place] [address] Lab[facility] [place] [facility] 10/26/2023 Anticoagulation (warfarin) [address] [address] 1, [facility] Anticoagulation 10/26/2023 Travel 10/24/2023 10:05 AM CDT Office Visit [address] [address] Miguel Freitas MD Follow Up (Seen at [place] for brain bleed / - still having headaches and fatigue, but better than he was at onset) 10/24/2023 Travel 10/22/2023 11:35 AM CDT Office Visit [address] [address] [facility] F/U (DOD: 10/19/23, LAU, subarachnoid hemorrhage //Still feeling a little tired, and headache ) 10/22/[address] [address] Miguel Freitas MD Appointment 10/22/2023 Anticoagulation (warfarin) [address] [address] 1[facility] Anticoagulation (OV) 10/22/2023 Travel 10/22/2023 Patient Outreach [address] [address] Yazmin Loza, RN Primary RN Care Management; Hospital F/U (LACE 57) from Last 3 Months Immunizations Name Administration Dates Next Due AMB Influenza, IIV4 PF (=>6 mos Flulaval,Fluzone Fluarix)(Flu Clinic Only) 03/14/2019 Influenza, IIV4 03/12/2018 Tdap 08/17/2021 Zoster (Shingrix-RZV, recombinant) 12/13/2021, Family History Medical History Relation Name Comments Good Health Brother Hypertension Father Obesity Father Tourette syndrome Father Good Health Mother Good Health Sister Relation Name Status Comments Brother Father Mother Sister Social History Tobacco Use Types Packs/Day Years Used Date Smoking Tobacco: Never Smokeless Tobacco: Former Chew Quit: 05/14/1989 Tobacco Cessation:Counseling Given: No Comments:rare chewed 10 times a year back before 1989 Alcohol Use Standard Drinks/Week Comments Yes 0 (1 standard drink = 0.6 oz pur e alcohol) see screening PHQ-2 Answer Date Recorded PHQ-2 TOTAL SCORE 0 10/24/2023 Social Connections Answer Date Recorded Frequency of Communication with Friends and Fami ly 0 09/04/2023 Alcohol Use Answer Date Recorded How often do you have a drink containing alcohol ? 3 01/01/2024 How many drinks containing a lcohol do you have on a typical day when you are drinking? 1 01/01/2024 How often do you have five or more drinks on one occasion? 3 01/01/2024 Financial Resource Strain Answer Date R ecorded Difficulty of Paying Living Expenses 3 09/04/2023 Difficulty of Paying Living Expenses Not on file 09/04/2023 Food Insecurity Answer Date Recorded Worried About Running Out of Food in the Last Ye ar 1 09/04/2023 Transportation Needs Answer Date Record ed Lack of Transportation (Medical) 1 09/04/2023 Housing Stability Answer Date Recorded Unable to Pay for Housing in the Last Year 1 09/04/2023 Sex and Gender Information Value Date Recorded Sex Assigned at Not on file Gender Identity Not on file Sexual Orientation Not on file Obstetrics History Last Filed Vital Signs Vital Sign Reading Time Taken Comments Blood Pressure 126/82 01/01/2024 12:04 PM CDT Pulse 90 01/01/2024 11:20 AM CDT Temperature 36.6 ??C (97.8 ??F) 01/01/2024 11:20 AM C DT Respiratory Rate 18 10/19/2023 1:00 PM CDT Oxygen Saturation 97% 01/01/2024 11:20 AM CDT Inhaled Oxygen Concentration - - Weight 103 kg (227 lb 1.6 oz) 01/01/2024 11:20 A M CDT Height 177.8 cm (5' 10) 10/17/2023 12:00 AM CDT Body Mass Index 32.59 10/17/2023 12:00 AM CDT Plan of Treatment Upcoming Encounters Date Type Department Care Team (Late st Contact Info) Description 01/28/2024 9:00 AM CDT Ancillary Procedure [facility] [address] [place] [address] 03/07/2024 10:00 AM CDT Office Visit [facility] [address] [place] [address] Ruperto Thompson MD [address] [place], [place] [id number] Health Maintenance Due Date Last Done Comments HIV for age 15-65 09/18/1982 Hepatitis C screening for age 18-79 09/18/1985 COVID-19 vaccine series ( season) 2024 Influenza for age 50-64 01/13/2024 03/14/2019, 03/12 BMI (ht and wt on same day) for age 18+ 03/13/2024 03/13/2023, 10/18/2022, 08/24/2022, Additional history exists Depression screening for age 12+ 10/26/2024 10/27/2023, 10/27/2023, 10/27/2023, Additional history exists Lipids for age 45-75 02/20/2028 02/19/2023, 05/17/2022, 02/10/2022, Additional history exists Tetanus booster 08/18/2031 08/17/2021 Colonoscopy through age 75 08/27/203108/26, 08/26/2021, 08/26/2021 Tdap Completed 08/17/2021 Zoster (shingles) series for age 50+ Completed 12/13/2021, 08/17/2021 Pneumococcal series for age 6-64 Aged Out No longer eligible based on patient's age to complete this topic Medical Devices Implanted Type Area Nuisance Wildlife Specialist Device Identifier Shelf Expiration Date Model / Serial / Lot Valve Aortic 25mm On-X Mechanical Std Sewing Ring - [id number] Implanted:Qty: 1 on 01/24/2022 by Nawaf Landers MBBS at [facility] N/A: Aortic Valve [employer] ONXAE-06/27/2027 ONXAE / [id number] / Procedures Procedure Name Priority Date/Time Associated Diagnosis Comments CBC WITH AUTO DIFFERENTIAL Routine 12/27/2023 10:02 AM CDT Other fatigue TSH WITH REFLEX Routine 12/27/2023 10:02 AM CDT Other fatigue CBC WITH AUTO DIFFERENTIAL Routine 12/27/2023 10:02 AM CDT Other fatigue BASIC METABOLIC PANEL Routine 12/27/2023 10:02 AM CDT Hyperkalemia PROTIME-INR STAT 12/27/2023 10:02 AM CDT S/P aortic valve replacement S/P CABG x 3 Anticoagulation monitoring, INR range 2-3 BASIC METABOLIC PANEL Routine 11/05/2023 10:29 AM CDT HTN (hypertension) PROTIME-INR STAT 11/05/2023 10:29 AM CDT S/P aortic valve replacement S/P CABG x 3 Anticoagulation monitoring, INR range 2-3 PLATELET COUNT STAT 10/29/2023 3:04 PM CDT S/P aortic valve replacement S/P CABG x 3 Anticoagulation monitoring, INR range 2-3 PROTIME-INR STAT 10/29/2023 3:04 PM CDT S/P aortic valve replacement S/P CABG x 3 Anticoagulation monitoring, INR range 2-3 PLATELET COUNT STAT 10/26/2023 1:04 PM CDT S/P aortic valve replacement S/P CABG x 3 Anticoagulation monitoring, INR range 2-3 (goal 2.5) PROTIME-INR STAT 10/26/2023 1:04 PM CDT S/P aortic valve replacement S/P CABG x 3 Anticoagulation monitoring, INR range 2-3 (goal 2.5) PROTIME-INR STAT 10/22/2023 12:49 PM CDT S/P aortic valve replacement S/P CABG x 3 Anticoagulation monitoring, INR range 2-3 (goal 2.5) LIPID PANEL Routine 02/19/2023 10:03 AM CDT Coronary artery disease involving [place] coronary artery of [place] heart without angina pectoris S/P aortic valve replacement S/P CABG x 3 COLONOSCOPY SCREENING Routine 08/26/2021 7:39 AM CDT Screening for colon cancer from Last 3 Months or Most Recently Relevant to Health Maintenance Results * (ABNORMAL) CBC WITH AUTO DIFFERENTIAL (12/27/2023 10:02 AM CDT) WHITE BLOOD COUNT 6.9 4.5 - 11.0 thou/cu mm 12/27/2023 10:16 AM CDT [facility] RED BLOOD COUNT 4.09(L) 4.30 - 5.90 mil/cu mm 12/27/2023 10:16 AM CDT [facility] HEMOGLOBIN 13.0(L) 13.5 - 17.5 g/dL 12/27/2023 10:16 AM CDT [facility] HEMATOCRIT 37.7 37.0 - 53.0 % 12/27/2023 10:16 AM CDT [facility] MCV 92 80 - 100 fL 12/27/2023 10:16 AM CDT [facility] MCH 31.8 26.0 - 34.0 pg 12/27/2023 10:16 AM CDT [facility] MCHC 34.5 32.0 - 36.0 g/dL 12/27/2023 10:16 AM CDT [facility] RDW 15.8(H) 11.5 - 15.5 % 12/27/2023 10:16 AM CDT [facility] PLATELET COUNT 309 140 - 440 thou/cu mm 12/27/2023 10:16 AM CDT [facility] MPV 9.4 6.5 - 11.0 fL 12/27/2023 10:16 AM CDT [facility] % NEUT 58.0 % 12/27/2023 10:16 AM CDT [facility] % LYMPH 28.0 % 12/27/2023 10:16 AM CDT [facility] % MONO 10.8 % 12/27/2023 10:16 AM CDT [facility] % EOS 2.6 % 12/27/2023 10:16 AM CDT [facility] % BASO 0.6 % 12/27/2023 10:16 AM CDT [facility] ABSOLUTE NEUTROPHILS 4.0 1.7 - 7.0 thou/cu mm 12/27/2023 10:16 AM CDT [facility] ABSOLUTE LYMPHOCYTES 1.9 0.9 - 2.9 thou/cu mm 12/27/2023 10:16 AM CDT [facility] ABSOLUTE MONOCYTES 0.7 <0.9 thou/cu mm 12/27/2023 10:16 AM CDT [facility] ABSOLUTE EOSINOPHILS 0.2 <0.5 thou/cu mm 12/27/2023 10:16 AM CDT [facility] ABSOLUTE BASOPHILS 0.0 <0.3 thou/cu mm 12/27/2023 10:16 AM CDT [facility] Blood BLOOD SPECIMEN / Unknown Venipuncture / Unknown 12/27/2023 10:02 AM CDT 12/27/2023 10:03 AM CDT Miguel Freitas MD HEMATOLOGY [facility] [address] [place] [address], * TSH WITH REFLEX (12/27/2023 10:02 AM CDT) TSH 2.38 0.27 - 4.20 uIU/mL 12/27/2023 4:52 PM CDT [facility] Blood BLOOD SPECIMEN / Unknown Venipuncture / Unknown 12/27/2023 10:02 AM CDT 12/27/2023 10:03 AM CDT Narrative [facility] - 12/27/2023 4:52 PM CDT In Adults, TSH values between 5.00 and 10.00 uIU/ml do not necessarily indicate the presence of Hypothyroidism. Correlation with clinical findings such as presence of goiter and/or Thyroperoxidase (TPO) Antibody may be helpful. For more information please refer to MEGAN 2004; 291: 228-238. Miguel Freitas MD CHEMISTRY Performing Organization Address [facility] Co de Phone Number [facility] [address] [address], [place] * (ABNORMAL) PROTIME-INR (12/27/2023 10:02 AM CDT) Only the most recent of5 resultswithin the time period is included. INR 2.2(H) <1.3 12/27/2023 3:36 PM CDT [facility] PROTIME 23.6(H) 10.3 - 12.3 sec 12/27/2023 3:36 PM CDT [facility] Blood BLOOD SPECIMEN / Unknown Venipuncture / Unknown 12/27/2023 10:02 AM CDT 12/27/2023 10:03 AM CDT Narrative [facility] - 12/27/2023 3:36 PM CDT ?Therapeutic Range 2.0-3.0 for most anticoagulated patients 2.5-3.5 or 4.0 for high risk patients The INR is only used for patients on stable oral anticoagulant therapy. It makes no significant contribution to the diagnosis or treatment of patients whose Protime is prolonged for other reasons. INR results are increased when heparin levels exceed 1.0 U/mL, which corresponds to an aPTT >125 seconds if the patient is on UFH. Miguel Freitas MD HEMATOLOGY Performing Organization Address [facility] Co de Phone Number [facility] [address] [address], [place] * (ABNORMAL) BASIC METABOLIC PANEL (12/27/2023 10:02 AM CDT) Only the most recent of2 resultswithin the time period is included. SODIUM 135(L) 136 - 145 mmol/L 12/27/2023 4:52 PM CDT [facility] POTASSIUM 4.7 3.5 - 5.1 mmol/L 12/27/2023 4:52 PM T [facility] CHLORIDE 100 98 - 107 mmol/L 12/27/2023 4:52 PM T [facility] CO2,TOTAL 24 22 - 29 mmol/L 12/27/2023 4:52 PM T [facility] ANION GAP 11 5 - 18 12/27/2023 4:52 PM T [facility] GLUCOSE 88 70 - 99 mg/dL 12/27/2023 4:52 PM T [facility] CALCIUM 9.4 8.6 - 10.0 mg/dL 12/27/2023 4:52 PM T [facility] BUN 15 6 - 20 mg/dL 12/27/2023 4:52 PM T [facility] CREATININE 1.05 0.70 - 1.20 mg/dL 12/27/2023 4:52 PM T [facility] BUN/CREAT RATIO 14 10 - 20 4:52 PM T [facility] eGFR 83(L) >90 mL/min/1.7 3m2 12/27/2023 4:52 PM T [facility] Comment:As of 2021, eG FR is calculated by the CKD-EPI creatinine equation without race adjustment. ??eGFR can be influenced by muscle mass, exercise, and diet. ??The reported eGFR is an estimation only and is only applicable if the renal function is stable. Blood BLOOD SPECIMEN / Unknown Venipuncture / Unknown 12/27/2023 10:02 AM CDT 12/27/2023 10:03 AM CDT Miguel Freitas MD CHEMISTRY [facility] [address] [place] [address], [place] * PLATELET COUNT (10/29/2023 3:04 PM CDT) Only the most recent of2 resultswithin the time period is included. PLATELET COUNT 315 140 - 440 thou/cu mm 10/29/2023 3:13 PM CDT [facility] MPV 9.2 6.5 - 11.0 fL 10/29/2023 3:13 PM CDT [facility] Blood BLOOD SPECIMEN / Unknown Venipuncture / Unknown 10/29/2023 3:04 PM CDT 10/29/2023 3:04 PM CDT Narrative [facility] - 10/29/2023 3:13 PM CDT to monitor if out of range, to monitor for Heparin-Induced Thrombocytopenia while on lovenox. Miguel Freitas MD HEMATOLOGY [facility] [address] [place] [address], * LIPID PANEL (02/19/2023 10:03 AM CDT) Pathologist [facility] CHOLESTEROL,TOTAL 195 100 - 199 mg/dL 02/19/2023 10:13 PM CDT [facility] Comment: Cholesterol, Total Reference Ranges Desirable <200 mg/dL Borderline 200-239 mg/dL High >=240 mg/dL TRIGLYCERIDES 107 <150 mg/dL 02/19/2023 10:13 PM CDT [facility] HDL CHOLESTEROL 65 >40 mg/dL 10:13 PM CDT [facility] NON-HDL CHOLESTEROL 130 <145 mg/dl 02/19/2023 10:13 PM CDT [facility] CHOL/HDL RATIO 3.00 <4.50 02/19/2023 10:13 PM CDT [facility] LDL CHOLESTEROL 109 <=130 mg/dL 02/19/2023 10:13 PM CDT [facility] VLDL CHOLESTEROL 21 <=30 mg/dL 02/20/20 23 10:13 PM CDT [facility] Blood BLOOD SPECIMEN / Unknown Venipuncture / Unknown 02/19/2023 10:03 AM CDT 02/19/2023 10:07 AM CDT Kenny López MD CHEMISTRY [facility] [address] [place] [address], * COLONOSCOPY (08/26/2021 8:54 AM CDT) 08/26/2021 8:54 AM CDT Narrative Transcriptions Rivas Hurley MD - 08/26/2021 9:22 AM CDT Patient Name: Chet Charlton Procedure Date: 08/26/2021 Gender: Male Date of : 1965 Admit Type: Outpatient Procedure: Colonoscopy Proceduralist: Rivas Hurley MD , Yazmin Loza, RN (Nurse) Referring MD: Miguel Freitas Indications/Pre-Op Diagnosis: Screening for colorectal malignant neoplasm, This is the patient's first colonoscopy Medications: Fentanyl 100 micrograms IV, Midazolam 3 mgIV, The level of sedation administered wasmoderate Procedure Description: The patient had risks, benefits and alternatives explained to andgave informed consent. The patient had a stable cardiopulmonary status and judged an adequate candidate for conscious sedation. The colonoscope was passed through the anus and advanced to thececum, identified by appendiceal orifice and ileocecal valve. Thecolonoscopy was performed without difficulty. The patient tolerated the procedure well. The quality of the bowel preparation was good. The ileocecal valve, appendiceal orifice, and rectum were photographed. Complications: No immediate complications. Estimated Blood Loss & Specimen: Estimated blood loss: none. Specimen collected - None Findings: The perianal and digital rectal examinations were normal. A few small-mouthed diverticula were found in the sigmoid colon. The exam was otherwise without abnormality. Impressions/Post-Op Diagnosis: - Diverticulosis in the sigmoid colon. - The examination was otherwise normal. - No specimens collected. Recommendation: - Patient has a contact number available for emergencies. The signsand symptoms of potential delayed complications were discussed with the patient. Return to normal activities tomorrow. Written discharge instructions were provided to the patient. - Resume previous diet. - Continue present medications. - Repeat colonoscopy in 10 years for screening purposes. Moderate Sedation: Moderate (conscious) sedation was administered by the endoscopy nurse and supervised by the endoscopist. The following parameters were monitored: oxygen saturation, heart rate, respiratory rate, blood pressure, adequacy of pulmonary ventilation and reponse to care. Please refer to the patient's medical record flowsheets and nursing notes for moderate sedation details. Total physician intraservice time was 16 minutes. Rivas Hurley MD 08/26/2021 9:21:59 AM This report has been signed electronically. Note Initiated On: 08/26/2021 8:54 AM Procedure Code(s): --- Professional --- 75443, Colonoscopy, flexible; diagnostic, including collection of specimen(s) bybrushing or washing, when performed (separateprocedure) Diagnosis Code(s): --- Professional --- Z12.11, Encounter for screening formalignant neoplasm of colon K57.30, Diverticulosis of large intestine without perforation or abscess withoutbleeding CPT copyright 2020 [employer]. All rights reserved. The codes documented in this report are preliminary and upon computer support analyst reviewmay be revised to meet current compliance requirements. Scope In: 9:04:15 AM Scope Withdrawal Time 0 hours 7 minutes 24 seconds Scope Out: 9:16:18 AM Rivas Hurley MD PROCEDURE ORD from Last 3 Months or Most Recently Relevant to Health Maintenance Advance Directives * Full Code (Latest Code Status on File) Date Activated Date Inactivated Comments 10/16/2023 10:57 PM 10/19/2023 6:24 PM Question Answer Comments Code Status Discussion: Reviewed Preferences * Full Code Date Activated Date Inactivated Comments 01/25/2022 2:20 PM 01/30/2022 3:44 PM Question Answer Comments Code Status Discussion: Reviewed Preferences * Full Code Date Activated Date Inactivated Comments 01/24/2022 6:19 AM 01/25/2022 2:20 PM Question Answer Comments Code Status Discussion: Unable to Assess Preferences, Provider to review later * Full Code Date Activated Date Inactivated Comments 12/07/2021 4:32 PM 12/07/2021 8:48 PM Question Answer Comments Code Status Discussion: Reviewed Preferences Care Teams Full Time Relationship Specialty Start Date End Date Miguel Freitas [place] [address] PCP - General Family Practice 10/28/21
[2024-01-20 00:53] LABS: Alkaline Phosphatase* 73 U/L (40-150); Anion Gap 11 mEq/L (7-15); Aspartate Amino Transferase* 37 U/L (12-35); Bilirubin Total* 0.1 mg/dL (0.1-1.5); Carbon Dioxide* 23 mmol/L (20-32); Creatinine* 1.2 mg/dL (0.5-1.5); Est. Creatinine Clearance* 70.97; Estimated Glomerular Filt Rate 71 ml/min; Total Protein* 7.6 g/dL (6.0-8.3)
--- NOTE | 2024-01-20 00:53 | CRLHL7_ITS ---
For Patients: As a result of the Century Cures Act, medical imaging exams and procedure reports are released immediately into your electronic medical record. You may view this report before your referring provider. If you have questions, please contact your health care provider. INDICATION: Headache. TECHNIQUE: CT head without contrast. COMPARISON: None. FINDINGS: CSF spaces: Within normal limits for age. Brain parenchyma: The carrasco-white differentiation is maintained. No sign of mass, hemorrhage, or midline shift. Skull base and calvarium: The visualized paranasal sinuses and mastoid air cells demonstrate no acute or significant findings. The visualized orbits are grossly unremarkable. No skull fractures. IMPRESSION: No acute intracranial abnormality. Please note that all CT scans at this facility use dose modulation, iterative reconstruction, and/or weight-based dosing when appropriate to reduce radiation dose to as low as reasonably achievable. Dictated by Javan Salcedo MD @ 01/20/2024 2:00:04 AM (Electronically Signed)
[2024-01-20 00:54] LABS: Alanine Aminotransferase* 25 U/L (4-50); Blood Urea Nitrogen* 24 mg/dL (7-30); Calcium* 9.3 mg/dL (8.4-10.6); Glucose* 125 mg/dL (60-115); Magnesium* 1.9 mg/dL (1.5-2.6)
[2024-01-20 00:56] LABS: INR 1.73 (0.91-1.10); Prothrombin Time 21.5 Seconds
[2024-01-20 01:08] LABS: C Reactive Protein* < 0.5 mg/dL (0.5-1.0); Troponin I* 0.01 ng/mL (0.01-0.04)
[2024-01-20] MEDS: dilTIAZem 5 MG/ML inj 10 MG IVP (01:30)
[2024-01-20] MEDS: dilTIAZem HCL 125 MG in 0.9 % SODIUM CHLORIDE 100 ml 100 ML IVPB ×2 (02:30→04:15)
--- NOTE | 2024-01-20 06:32 | W.PM.TELEH&P ---
Telehealth- H&P: HPI History of Present Illness Date Seen: 01/20/24 Chief complaint: Atrial Fibrillation with RVR Narrative: Chet Charlton is seen as an Interactive Telehealth visit. Chet Charlton is a 58 year old male who presented to the emergency room with palpitations. Chet has an extensive and significant past medical history of paroxysmal atrial fibrillation managed on as needed oral diltiazem, artificial aortic valve anticoagulated on Coumadin, recent intracranial hemorrhage of unknown origin and recent unrelenting headaches. Chet does know his history well and does describe his recent difficulties with anticoagulation with his intracranial hemorrhage in early October as well as his paroxysmal atrial fibrillation with usual stable anticoagulation maintained on Coumadin with a normal INR at approximately 2.2. Chet states that he started having symptoms of palpitations at approximately 930 this last evening and he states it usually resolves in a couple of hours. When his palpitations did not resolve, he did take some oral Cardizem and this did not help and thus presented to the emergency room. Upon presentation to the emergency room, he was noted to have atrial fibrillation with a rapid ventricular response and was given some IV Cardizem and eventually started on a Cardizem drip. He has remained with a controlled ventricular response on the IV Cardizem and is currently being admitted to the medical service for ongoing evaluation and treatment. At the time I am seeing Chet, he does confirm the above history. He does state that he has had some ongoing headaches lately and a CT scan in the emergency room did not show any sign of acute bleed. He states that the palpitations have resolved with the initiation of the Cardizem drip. He denies any chest pain or shortness of breath. He does not admit to drinking 2-3 beers a night 2-3 times per week. He otherwise denies any other acute complaints or problems at the time I am seeing him. Review of Systems Status of ROS: Reports: 10 or more systems reviewed and unremarkable except as noted in History and below [facility] Surgical History 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) ?R22.1 - Localized swelling, mass and lump, neck (ICD-10) ?Z85.9 - Personal history of malignant neoplasm, unspecified (ICD-10) History of open heart surgery (01/24/22) ?Z98.890 - Other specified postprocedural states (ICD-10) Social History What is your current living situation?: I presently have a place to live Problems where you live: no known problems Problems where you live details: none In the past 12 months, utilities in danger of being shut off: no In past 12 months, lack of transportation kept you from medical appts, meetings, work, or getting things needed for daily living: no In the past 12 mos, have been you worried that your food would run out before you had money to buy more?: never true In the past 12 mos, the food you bought just didn't last and you didn't have money to buy more?: never true Smoking Status: Never smoker Do you use any of these nicotine containing products: None Second hand tobacco smoke exposure: No How often do you have a drink containing alcohol: 2-3 times a week How many standard drinks containing alcohol do you have on a typical day: 1 or 2 AUDIT-C Alcohol total score: 3 Non-prescribed substance use: denies use How often does anyone, including family, friends and others, physically hurt you: never How often does anyone, including family, friends and others, insult or talk down to you: never How often does anyone, including family, friends and others, threaten you with harm: never How often does anyone, including family, friends and others, scream or curse at you: never Meds Home Medications and Allergies Home Medications ?Medication ?Instructions ?Recorded ?Confirmed ?Type aspirin 81 mg tablet,delayed 81 mg PO QDAY 06/19/22 10/16/23 History release famotidine 40 mg tablet 40 mg PO DAILY 06/19/22 10/16/23 History metoprolol succinate 50 mg 50 mg PO DAILY 06/19/22 10/16/23 History tablet,extended release 24 hr nitroglycerin 0.4 mg sublingual 0.4 mg sublingual Q5M PRN 06/19/22 10/16/23 History tablet rosuvastatin 20 mg tablet 20 mg PO QDAY 06/19/22 10/16/23 History warfarin 3 mg tablet See Rx Instructions .Route .COMPLEX 06/19/22 10/16/23 History Allergies Allergy/AdvReac Type Severity Reaction Status Date / Time No Known Drug Allergies Allergy Verified 10/16/23 12:57 Exam Narrative Exam Narrative: Physical Exam GENERAL: vital signs reviewed, well developed and nourished, in no distress HEENT: pupils are equal round and reactive to light, extraocular movements are grossly within normal limits and oral mucosa is moist. NECK: Supple without lymphadenopathy or thyromegaly according to nursing staff examination observation HEART: Irregularly irregular consistent with atrial fibrillation with slow ventricular response. LUNGS: Clear to auscultation bilaterally with good air movement throughout ABDOMEN: Observation from nurse assisted exam, abdomen appears soft, nontender, and nondistended with Positive bowel sounds noted. EXTREMITIES: Strength and sensation is observed to be grossly within normal limits in the upper and lower extremities. No focal strength deficit is observed SKIN: Observed warm and dry with color normal NEURO: Alert, awake and oriented ?3. Answers all questions appropriately. No focal neuro deficits are noted. PSYCH: Affect normal Const Vital Signs, click to edit/add: Vital Signs - 24 hr 01/20/24 00:02 01/20/24 05:45 01/20/24 05:45 Temperature 97.9 F 97.9 F Pulse Rate [Pulse Oximeter] 108 H 77 Respiratory Rate 22 20 22 Blood Pressure [Right Arm] 113/79 Blood Pressure [Right Upper Arm] 98/76 Pulse Oximetry 96 96 96 Oxygen Delivery Method Room Air Room Air Room Air Documenting provider has reviewed patient's vital signs: yes Hospitalist - H&P: Result Labs Labs: Short CBC 01/20/24 Range/Units 00:04 WBC 9.76 (4.50-11.00) K/uL Hgb 13.7 (13.5-17.5) gm/dL Hct 40.6 (37.0-53.0) % Plt Count 268 (140-440) K/uL BMP 01/20/24 00:04 Sodium 135 Potassium 3.9 Chloride 101 Carbon Dioxide 23 BUN 24 Creatinine 1.2 Glucose 125 H Calcium 9.3 Cardiac Enzymes 01/20/24 Range/Units 00:04 Troponin I 0.01 (0.01-0.04) ng/mL Liver Function 01/20/24 Range/Units 00:04 Total Bilirubin 0.1 (0.1-1.5) mg/dL AST 37 H (12-35) U/L ALT 25 (4-50) U/L Alkaline Phosphatase 73 (40-150) U/L Albumin 4.8 (3.3-5.0) g/dL Imaging CT scan - head: Radiologist's impression: IMPRESSION: No acute intracranial abnormality. Assessment and Plan Assessment and plan (1) Atrial fibrillation with rapid ventricular response: Status: Acute Plan Assessment: 1. Paroxysmal atrial fibrillation currently with rapid ventricular response 2. Aortic prosthetic heart valve currently anticoagulated on Coumadin with a subtherapeutic INR for both prosthetic heart valve and also atrial fibrillation 3. Recent intracranial hemorrhage with current INR goal between 2.0 and 2.5?currently with no sign of recurrent intracranial bleed on CT 4. Ongoing alcohol usage questioned contribution to subtherapeutic INR 5. Unrelenting cephalgia of unknown origin with neurology recommending follow-up MRI Plan: At this time Chet will be admitted to the medical service. We will continue to adjust of the diltiazem drip for his paroxysmal atrial fibrillation to maintain an adequate heart rate less than 100 bpm. Hopefully, he will revert back to a normal sinus rhythm in the next 12 hours, but may need to adjust his oral rate controlling medications accordingly if he does not convert back to the normal sinus rhythm. Will also have pharmacy follow his Coumadin dosing for an INR goal between 2.0 and 2.5. I do realize that the normal dosing for a prosthetic aortic valve would be 2.5-3.5, but with his recent intracranial hemorrhage, this has been adjusted. Apparently, the emergency room provider did discuss his current headaches with neurology and it has been recommended a follow-up MRI scan to be done at the next availability of the scanner and it is reassuring that the CT scan has been read by radiology as no new intracranial bleed. I have discussed this plan with Chet and he is agreeable to proceed. Will continue to follow closely from medical standpoint. I have discussed CODE STATUS with Chet and he does wish to be a full code. This will be documented in his chart Telehealth: Statement Statement Telehealth Visit: Today's History and Physical is provided via interactive telehealth by Hardy Tate MD.? Patient is located at [facility].? Provider is located at [facility].? Nursing staff assisted with the patient's exam. The visit being done today meets criteria for a telehealth visit and the patient or patient?s parent/guardian is aware the visit is a telehealth visit. Camera Start Time: 05:53 Camera End Time: 06:15
--- NOTE | 2024-01-20 07:01 | PC.NURSE ---
Pt arrived from ED approx 0535, pt up to BR ind, some SOB with activity, reports slight lightheaded/dizziness, instructed pt to call for RN when getting up due to fall risk, pt reports he has been feeling this way for over a month. no pain reported but acknowledged having a headache since 07/21. denies chest pain. dilt gtts titrated per verbal order from Dr Tate/protocol. Pt tolerating very well.
--- NOTE | 2024-01-20 07:35 | P.IMPN_ITS ---
Progress Note: A&P Assessment and plan (1) Atrial flutter: Problem details: 4:1 conduction. will trial oral LA cardizem with his oral metoprolol for continued rate control. cardiology curbside, by phone, in am update echo continue telemetry walk patient to see rate control Zio patch likely needed with PCP Status: Acute (2) Atrial fibrillation with rapid ventricular response: Problem details: resolved with diltiazem infusion; but now in AFLUTTER and will attempt continued rate control with LA cardizem Status: Acute (3) Warfarin anticoagulation: Problem details: -subtherapeutic -pharm consult -goal 2-2.5 with mechanical valve, atrial tachycardia Status: Acute (4) History of aortic valve stenosis: Problem details: 02/02 - mechanical valve (valeria) - needs warfarin or DOAC secondary to previous chest radiation for Hodgkins Status: Acute (5) History of subarachnoid hemorrhage: Problem details: 11/04 - unclear etiology no new signs of rebleed or new issues on head CT Status: Acute (6) Chronic fatigue: Problem details: -we discussed diff dx: metoprolol side effects, slow AFIB/Flutter and loss of atrial kick, cardiac ischemia, low T Status: Acute (7) History of Hodgkin's lymphoma: Problem details: 20's, s/p radiation and subsequent long standing remission. Status: Acute (8) History of mechanical aortic valve replacement: Problem details: 02/02 - mechanical valve (valeria) - needs warfarin or DOAC secondary to previous chest radiation for Hodgkins Status: Acute Subjective Date Seen: 01/20/24 Interval history: Updated Visit - Hospital Medicine. Day #:1 CC:AFIB/RVR 24 HOUR UPDATE: as above. -H/P reviewed by TeleHealth. -Chet feels improved with the lower rate; still in atrial tachycardia (Afib and flutter noted). still on dilt drip; unit status -MAP >65, no chest pain or SOB -we talked about his extensive history and recent continued fatigue. Notable Labs, Micro, Rads, Interventions: INR 1.73 [facility]: Chet Charlton is a(n) 58 y.o. with a history of obstructive sleep apnea, aortic stenosis s/p aortic valve replacement, s/p CABG x 3 in 2021, paroxysmal atrial fibrillation on anticoagulation, gout, hx on 10/16/2023 of. subarachnoid hemorrhage subsequent angiogram was unable to find etiology. Admitted early this morning with known AFIB but in RVR. 01/24/22 INTRA[address]ATIVE MADDY PERFOR[address] BY DR. SIMMONS, STERNOTOMY, TAKEDOWN OF MAC, ENDOSCOPIC SAPHENOUS VEIN HARVEST OF RIGHT LEG, CORONARY ARTERY BYPASS X 3, REPLACEMENT AORTIC VALVE W/VALERIA VALVE 25MM, PLACEMENT OF TEMPORARY LEFT VENTRICULAR PACING WIRES ECHO Final Impressions: 1. Normal LV size, normal wall thickness, EF of 60 - 65%. 2. Normal RV size, mildly reduced systolic function. 3. Mild LA enlargement. 4. S/P 25 mm mechanical On-X AVR, no stenosis (MG 12 mmHg), and no regurgitation. 5. The mitral valve is sclerotic, MAC present, trace regurgitation, mild stenosis (MG 3-4 mmHg @ HR 75 bpm). 6. Echo contrast was administered to enhance visualization of all left ventricular segments. Comparison Compared to prior exam of 03/13/2023, there has been no significant change. ? Objective: Alert, good historian. Pleasant. Vitals: see above Lungs: Clear. Cardiac: S1S2. Regular. A flutter 4-1 conduction. Disposition/Potential discharge - consider cardiology referral for ablation. currently rate controlled and anticoagulated. Today I spent 50minutes seeing the patient, reviewing Expanse and EPIC notes/diagnostics, discussing the care plan with our care time that includes social work, PT/OT, pharmacy, RT, usp and documenting my impressions and plan in the medical record. Prolonged Physician Services [id number] ([facility]) in conjunction with: [id number] (subsequent visit; 50 mins + 15 mins prolonged services = 65 mins total) I then went back for 15 mins to discuss the findings of ..... Alcohol [id number] >30 mins. We went over all the stigmata of social alcohol and weekend binge drinking on AFIB. I recommended complete abstinence from alcohol. Exam Const: Vital Signs, click to edit/add: Vital Signs - 24 hr 01/20/24 00:02 01/20/24 05:30 01/20/24 05:45 Temperature 97.9 F 97.9 F 97.9 F Pulse Rate Pulse Rate [Pulse Oximeter] 108 H 77 77 Respiratory Rate 22 22 20 Blood Pressure [Ri ght Arm] 113/79 113/79 Blood Pressure [Ri ght Upper Arm] 98/76 Pulse Oximetry 96 96 96 Oxygen Delivery Me thod Room Air Room Air Room Air 01/20/24 05:45 01/20/24 06:24 01/20/24 06:27 Temperature Pulse Rate 56 L Pulse Rate [Pulse Oximeter] 68 Respiratory Rate 22 20 Blood Pressure [Ri ght Arm] 111/68 Blood Pressure [Ri ght Upper Arm] Pulse Oximetry 96 95 Oxygen Delivery Me thod Room Air Room Air 01/20/24 06:30 01/20/24 06:30 01/20/24 07:00 Temperature Pulse Rate Pulse Rate [Pulse Oximeter] 65 69 64 Respiratory Rate 20 18 18 Blood Pressure [Ri ght Arm] 111/68 109/72 111/75 Blood Pressure [Ri ght Upper Arm] Pulse Oximetry 96 93 93 Oxygen Delivery Me thod Room Air Room Air Room Air 01/20/24 07:00 Temperature Pulse Rate 72 Pulse Rate [Pulse Oximeter] Respiratory Rate Blood Pressure [Ri ght Arm] Blood Pressure [Ri ght Upper Arm] Pulse Oximetry Oxygen Delivery Me thod Labs Labs: Laboratory Results - last 24 hr 01/20/24 00:04 WBC 9.76 RBC 4.32 Hgb 13.7 Hct 40.6 MCV 94 MCH 32 MCHC 34 RDW Coeff of Hortencia 15.1 Plt Count 268 Neut % (Auto) 52.2 Lymph % (Auto) 35.8 Gregg % (Auto) 8.1 Eos % (Auto) 1.9 Baso % (Auto) 0.7 Neut # (Auto) 5.09 Lymph # (Auto) 3.49 H Gregg # (Auto) 0.80 Eos # (Auto) 0.19 Baso # (Auto) 0.07 Abs Immat Gran (auto) 0.13 Imm/Tot Granulo (auto) 1.3 INR 1.73 H Sodium 135 Potassium 3.9 Chloride 101 Carbon Dioxide 23 Anion Gap 11 BUN 24 Creatinine 1.2 Estimated Creat Clear 70.97 Estimated GFR 71 Glucose 125 H Calcium 9.3 Magnesium 1.9 Total Bilirubin 0.1 AST 37 H ALT 25 Alkaline Phosphatase 73 Troponin I 0.01 C-Reactive Protein < 0.5 L Total Protein 7.6 Albumin 4.8
[2024-01-20] MEDS: METOPROLOL SUCCINATE (XL) 50 MG TAB PO (09:58)
[2024-01-20] MEDS: FAMOTIDINE 20 MG TABLET 40 MG PO (09:59)
--- NOTE | 2024-01-20 12:28 | PC.PHA ---
Warfarin consult note: Reason for warfarin: AVR INR goal requested by the provider: 2.0-2.5 Most recent INR: 01/20/24 inr = 1.73 Usual home dose (if any): 6mg Tues, 4.5mg all other days Today's dose ordered: 6mg Vitamin K given: none Comments: give 6mg today for subtherapeutic inr
[2024-01-20] MEDS: dilTIAZem 120 MG CAP.ER.24H PO (12:37)
[2024-01-20] MEDS: PERFLUTREN LIPID MICROSPHERES 2 ML VIAL IV (12:45)
--- NOTE | 2024-01-20 14:32 | PC.NURSE ---
shift note: diltiazem gtt off @ 1320 per d.o. pt HR remained at fib with rate 74-78/min. Pt up to bathroom and rate increased to 153/min. Pt states he doesn't feel the HR increase and denies c.p and/or pressure. Pt rested for 30 mins and HR returned to 77/min at fib.
[2024-01-20] MEDS: WARFARIN 3 MG TABLET 6 MG PO (16:32)
[2024-01-20] MEDS: dilTIAZem 120 MG CAP.ER.24H 240 MG PO (17:30)
--- NOTE | 2024-01-20 18:33 | PC.NURSE ---
shift note: pt heart rate increased from 70's to 150's with minimal activity in room. pt denies feeling c.p, chest pressure or sob with activity in room. Pt received diltiazem 240mg po @ 1730. BP @ 1830 127/62 p=77 s=96. HR per tele remains at flutter. HR upon standing to ambulate @ 1830; 150/min per monitor. pt ambulated 200ft with staff at norm pace. HR as high as 160/min. pt stated he felt irregularity of heart and was sob. Pt HR 10 mins after activity while resting in bed 97-104/min. sob resolved.
--- NOTE | 2024-01-20 19:32 | PC.NURSE ---
shift note: Tele monitor at fib to at flutter with HR 77 till pt up to bathroom. HR increased during this minimal activity to 150/min. IV patent x2. pt denies nausea. pt had small BM. Pt off diltiazem gtt this a.m 1 hour after po diltiazem given per d.o. DR. Herrera updated throughout the day on pt's status. Orders given. Pt to remain CCU per Dr. Herrera.
[2024-01-20] MEDS: MELATONIN 3 MG TABLET PO (21:21)
[2024-01-20] MEDS: SODIUM CHLORIDE 0.9 % (FLUSH) 10 ML SYRINGE 5 ML IVF (21:22)
[2024-01-21] VITALS (7 sets, daily range): BP systolic 114–140; BP diastolic 76–90; PULSE 64–77; RESP 16–18; TEMP 36–36.2; O2SAT 95–96
--- NOTE | 2024-01-21 04:55 | PC.NURSE ---
Addendum entered by Torie Eubanks RN 01/21/24 06:54: Pt up to BR, HR up to 97 BPM with activity but only briefly, recovered back down to 60s-70's within 1 min after returning back to bed and resting, he remained in NSR, PT denied SOB and CP and states he is feeling much better. tolerated activity very well. Original Note: [id number] Pt slept well during night. converted to NSR approx 0238 HR 60s-70s at rest. denies chest pain, SOB, difficulty breathing. Pt has not gotten up to ambulate since converting to NSR so RN has not been able to assess HR with activity at this time.
[2024-01-21 06:35] LABS: HCO3 VBG 24 mmol/L (21-28); PCO2 VBG 37 mmHG (40-50); PO2 VBG 73.5 mmHG (25-47); pH VBG 7.414 (7.32-7.43)
[2024-01-21 07:01] LABS: Hemoglobin A1C* 5.9 % (0-5.6)
[2024-01-21 07:05] LABS: C Reactive Protein* 0.6 mg/dL (0.5-1.0)
[2024-01-21 07:09] LABS: Troponin I* 0.04 ng/mL (0.01-0.04)
[2024-01-21 07:24] LABS: NT Pro B Type NatriureticPept* 1800 pg/mL
[2024-01-21 07:32] LABS: INR 1.99 (0.91-1.10)
[2024-01-21] MEDS: dilTIAZem 120 MG CAP.ER.24H 240 MG PO (08:27)
[2024-01-21] MEDS: METOPROLOL SUCCINATE (XL) 50 MG TAB PO (08:27)
[2024-01-21] MEDS: FAMOTIDINE 20 MG TABLET 40 MG PO (08:27)
--- NOTE | 2024-01-21 12:14 | PC.NURSE ---
discharge. Pt has been very pleasant. complained of a small VANN, did not want anything for it. SL patent x2 and was d/c intact. HR showed 1st degree HR. tele was d/c. he is up walking, HR is 60-90. he is eating, drinking and voiding with no problems. went over discharge packet with pt and . went over medications, appointments, education and instructions. pt went over and signed personal belonging sheet. pt walked out with and all belongings and paperwork.
--- NOTE | 2024-01-21 14:21 | P.DS_ITS ---
DS: Providers Provider Date Seen: 01/21/24 Date of admission: 01/20/24 06:30 Primary care physician: Miguel Freitas MD Admitting Clinician: Hardy Tate MD Attending Physician on discharge: Evelyn Herrera MD [facility] Hospitalist Date of Discharge: 01/21/24 DS: Diagnosis Discharge Diagnosis (1) Atrial flutter: Status: Acute Problem details: Converted to sinus rhythm early on the morning of 01/21/2024 Discharging on extended release Cardizem and metoprolol. Discussed with Cardiology the morning of discharge. Appropriate to continue warfarin anticoagulation, Cardizem and metoprolol and order a Zio patch. updated echo reassuring (2) Atrial fibrillation with rapid ventricular response: Status: Acute Problem details: resolved with diltiazem infusion; but now in AFLUTTER and will attempt continued rate control with LA cardizem (3) Chronic fatigue: Status: Acute Problem details: -we discussed diff dx: metoprolol side effects, slow AFIB/Flutter and loss of atrial kick, cardiac ischemia, low T (4) Warfarin anticoagulation: Status: Acute Problem details: -subtherapeutic -pharm consult -goal 2-2.5 with mechanical valve, atrial tachycardia Discharge INR 1.99, instructions given on warfarin dosing. INR recheck this week. (5) History of mechanical aortic valve replacement: Status: Acute Problem details: 02/02 - mechanical valve (valeria) - needs warfarin or DOAC secondary to previous chest radiation for Hodgkins (6) History of aortic valve stenosis: Status: Acute Problem details: 02/02 - mechanical valve (valeria) - needs warfarin or DOAC secondary to previous chest radiation for Hodgkins (7) History of subarachnoid hemorrhage: Status: Acute Problem details: 11/04 - unclear etiology no new signs of rebleed or new issues on head CT (8) History of Hodgkin's lymphoma: Status: Acute Problem details: 20's, s/p radiation and subsequent long standing remission. DS: Summary Hospital Course Hospital Course: FINAL DIAGNOSIS/FOLLOW UP ISSUES: Atrial tachyarrhythmia-patient presented with AFib RVR. He was admitted to our CCU and started on and Cardizem infusion. This slowed his rate while at rest but he still had tachycardia when he ambulated. Repeat EKG showed that he had flipped to a flutter with a 4-1 conduction. He was subtherapeutic on his warfarin so he was not cardioverted. With p.o. long-acting Cardizem he ultimately converted on his own early on the morning of 01/21/2024. Ambulation revealed that he stayed in sinus with a heart rate less than 90. I discussed the case with Cardiology and they were comfortable with continued warfarin anticoagulation in the long-acting metoprolol and Cardizem. They recommended Zio patch in follow-up with his bird tender. BRIEF HOSPITAL COURSE: Patient was admitted for 3 days. Synopsis of acute inpatient issues are outlined above. Chronic medical conditions with notable findings outlined above. DISCHARGE MEDICATIONS: See Reconciled list - SIGNIFICANT CHANGES: adding cardizem LA 240mg and holding amlodipine. Specific instructions to the patient and follow-up are outlined below. REVIEW OF SYSTEMS No new chest pain or dyspnea Pain controlled No voiding difficulties Tolerating diet challenge PHYSICAL EXAM: CONSTITUTIONAL: VITAL SIGNS: see record. HEENT: Normocephalic, atraumatic. PERRL, EOMI, conjunctivae pink, no scleral icterus. Ears and nose externally normal. Pharynx normal. NECK: No JVD. No carotid bruit, no thyromegaly, no adenopathy. CHEST: Clear to auscultation bilaterally. HEART: S1 and S2 normal. Edema minimal. ABDOMEN: Soft, nontender. Normal bowel sounds. MUSCULOSKELETAL: No gross joint deformity or swelling. NEURO: Cranial nerves intact. Grossly intact. No asymmetric findings. SKIN: No rashes, petechiae, concerning changes PSYCHIATRIC: Mood euthymic. DISPOSITION: Home with Time spent on discharge 37 minutes. Time Spent with Patient Time attestation: Total time spent providing and/or coordinating discharge services: Exam Const: Vital Signs, click to edit/add: Vital Signs - 24 hr 01/20/24 15:00 01/20/24 15:00 01/20/24 16:00 Temperature 97.1 F L Pulse Rate 77 Pulse Rate [Pulse Oximeter] 77 81 Respiratory Rate 18 Blood Pressure [Le ft Arm] Blood Pressure [Ri ght Arm] 137/92 H Pulse Oximetry 93 Oxygen Delivery Me thod Room Air 01/20/24 18:30 01/20/24 20:00 01/20/24 21:27 Temperature 97.4 F L 97.1 F L 97.1 F L Pulse Rate Pulse Rate [Pulse Oximeter] 77 97 94 Respiratory Rate 18 20 18 Blood Pressure [Le ft Arm] Blood Pressure [Ri ght Arm] 127/62 107/75 121/65 Pulse Oximetry 96 95 96 Oxygen Delivery Me thod Room Air Room Air Room Air 01/20/24 21:29 01/20/24 23:00 01/21/24 00:00 Temperature Pulse Rate 76 Pulse Rate [Pulse Oximeter] 94 74 Respiratory Rate 18 18 Blood Pressure [Le ft Arm] Blood Pressure [Ri ght Arm] Pulse Oximetry Oxygen Delivery Me thod 01/21/24 02:00 01/21/24 02:38 01/21/24 04:00 Temperature 96.8 F L Pulse Rate 69 Pulse Rate [Pulse Oximeter] 77 70 Respiratory Rate 16 18 Blood Pressure [Le ft Arm] 114/76 Blood Pressure [Ri ght Arm] Pulse Oximetry 95 [facility] 01/21/24 06:00 01/21/24 07:02 01/21/24 08:00 Temperature 96.8 F L 97.2 F L Pulse Rate 64 Pulse Rate [Pulse Oximeter] 67 76 Respiratory Rate 18 18 Blood Pressure [Le ft Arm] 122/79 140/90 H Blood Pressure [Ri ght Arm] Pulse Oximetry 96 96 [facility] Room Air 01/21/24 08:00 Temperature Pulse Rate Pulse Rate [Pulse Oximeter] Respiratory Rate 18 Blood Pressure [Le ft Arm] Blood Pressure [Ri ght Arm] Pulse Oximetry Oxygen Delivery Me thod DS: Data Data Completed and Pending Labs on day of discharge: Labs from last 24 hours 01/21/24 06:14 INR 1.99 H VBG pH 7.414 VBG pCO2 37 L VBG pO2 73.5 H VBG HCO3 24 Hemoglobin A1c 5.9 H Magnesium 2.0 Troponin I 0.04 C-Reactive Protein 0.6 NT-Pro-B Natriuret Pep 1800 TSH 2.300 Discharge Plan Discharge Disposition: Home, Self-Care Date of Admission: 01/20/24 06:30 Attending Provider on Discharge: Evelyn Herrera Primary Care Provider: Miguel Freitas Condition: Improved Anticipated Discharge Date/Time: 01/21/24 10:16 Discharge Medications: New diltiazem HCl [DILT-XR] 240 mg capsule,ext.rel 24h degradable 240 mg PO DAILY Qty: 30 0RF Continued metoprolol succinate 50 mg tablet extended release 24 hr 50 mg PO DAILY warfarin 3 mg tablet 4.5 - 6 mg PO DAILY Rx Instructions: 6mg Tues, 4.5mg all other days famotidine 40 mg tablet 40 mg PO DAILY nitroglycerin 0.4 mg tablet, sublingual 0.4 mg sublingual Q5M PRN aspirin 81 mg tablet,delayed release (DR/EC) 81 mg PO DAILY diltiazem HCl 30 mg tablet 30 mg PO Q6H PRN (Reason: atrial fibrillation) Qty: 10 0RF rosuvastatin 40 mg tablet 40 mg PO HS sildenafil 50 mg tablet 50 - 100 mg PO DAILY PRN Discontinued amlodipine 5 mg tablet 5 mg PO DAILY Discharge Orders: Discharge Order (Routine); Ordered 01/21/24 Ordered By: Evelyn Herrera Patient Education: Diltiazem (By mouth), A-fib (Atrial Fibrillation) (DC) Additional Instructions: 1.ZioPatch was ordered the morning of 01/[address] Freitas. It will arrive by [facility] this week. Instructions are self-explanatory. 2. You will see Dr. Freitas this week, Sunday 3. Hold amlodipine; start the extended release Diltazem. 4. Continue the metoprolol. 5. Buy an apple watch and have the alerts configured for atrial fibrillation/flutter. If you go into AFIB with a fast rate (>110), take an additional 30mg of Diltiazem. Proceed to the ED if not rate controlled. 6. Cardiology appt is moved up to early February. They will go over the results of the ZioPatch and decide if you need to go EP (gis manager) 7. Your INR this morning is 1.99. I would take 6 mg of warfarin the next two days and then resume your normal schedule. Have Miguel check your INR and do EKG on Sunday. Activity Level: Activity as Tolerated Discharge Diet: Regular Diet Detail: No alcohol Follow Up Appointments: [facility] [Provider Group] - 02/19/24 9:00 am ([facility] ([id number] [facility] [id number]) [address] Tommie Calvert FOR F/U AFIB HOSPITALIZATION; NEW MEDS/ZIO PATCH) Miguel Freitas MD [Primary Care Provider] - 01/23/24 10:05 am ([facility] for Hospital follow-up. NEEDS ZIO PATCH.) Forms: [employer] Info Instructions
== END 2024-01-21 11:15 | disposition home or self-care (01) | DRG 310 ==
LOC: ED 01-20 05:21 → MEDSURG 01-20 05:22
PROVIDERS: Family Medicine; Admitting Provider Internal Medicine; Emergency Provider Family Medicine; PCP Family Medicine; Visit Provider Internal Medicine
DX: I48.0 Paroxysmal atrial fibrillation (principal); Z79.01 Long term (current) use of anticoagulants; Z95.2 Presence of prosthetic heart valve; I48.92 Unspecified atrial flutter; Z85.71 Personal history of Hodgkin lymphoma; R53.82 Chronic fatigue, unspecified; Z86.79 Personal history of other diseases of the circulatory system; R51.9 Headache, unspecified
CPT/HCPCS: 36415; 70450; 71045; 80053; 82803; 83036; 83735; 83880; 84443; 84484; 85025; 85610; 86140; 93005; 93306; 99284; 99285; 99291; A9270; J3475; J3490; J7030; Q9957

== ENCOUNTER 2024-03-03 17:29 | Emergency (ER) | payer OTHER, SELFPAY ==
[2024-03-03] VITALS (11 sets, daily range): BP systolic 118–125; BP diastolic 73–76; PULSE 75–82; RESP 18; TEMP 36.8; O2SAT 95–100; BMI 30.7
--- NOTE | 2024-03-03 17:46 | ED_ITS ---
HPI - Arrhythmia/Palpitations General Time Seen by Provider: 17:46 Date Seen: 03/03/24 Chief Complaint: Arrhythmia/Palpitations Stated Complaint: AFib Time Seen by Provider: 03/03/24 17:38 Source: patient and RN notes reviewed Mode of arrival: ambulatory Limitations: no limitations History of Present Illness HPI narrative: This 58-year-old male is coming in with concern of underlying arrhythmia, he believes he is in atrial fibrillation. Has history of atrial relation and atrial flutter, arrhythmia started in January of this year, was here in the ER on 01/20/2024 and was hospitalized overnight. He converted to sinus rhythm on day of discharge after diltiazem infusion. He initially went from atrial fibrillation with RVR into atrial flutter. Cardiology did not recommend cardioversion at that time as patient does have a mechanical heart valve. He is on Coumadin, is due to have his INR checked in clinic tomorrow. He did have his Cardizem does decreased about 2 weeks ago, has suffered from low energy and fatigue since he was placed on 240 mg of the Cardizem. He went down to 120 and then subsequently started noting irregular and erratically heart rates about 5 days after dose reduction. For week now he is been back on the 240 mg dosage but still notes that he feels like he is in an irregular rhythm, sometimes fast. He has had no shortness of breath, no chest pain, no edema. His reported goal INR is 2-2.5. Patient had subarachnoid hemorrhage in October of this year, there was no known etiology found. He was transferred to [place] at that time, has been back on his anticoagulation. He is also on metoprolol 50 mg daily and has been back on the 240 mg of the Cardizem for a week now. Over the weekend, he had a GI episode where he had nausea and vomiting that was self resolved. He notes his heart rate really went ?wild? during that time frame. Related Data Home Medications ?Medication ?Instructions ?Recorded ?Confirmed aspirin 81 mg tablet,delayed 81 mg PO DAILY 06/19/22 01/20/24 release famotidine 40 mg tablet 40 mg PO DAILY 06/19/22 01/20/24 metoprolol succinate 50 mg 50 mg PO DAILY 06/19/22 03/03/24 tablet,extended release 24 hr nitroglycerin 0.4 mg sublingual 0.4 mg sublingual Q5M PRN 06/19/22 01/20/24 tablet warfarin 3 mg tablet 4.5 - 6 mg PO DAILY 06/19/22 03/03/24 rosuvastatin 40 mg tablet 40 mg PO HS 01/20/24 03/03/24 sildenafil 50 mg tablet 50 - 100 mg PO DAILY PRN 01/20/24 01/20/24 diltiazem HCl 120 mg 120 mg PO DAILY 03/03/24 03/03/24 capsule,extended release 24 hr, controlled Previous Rx's ?Medication ?Instructions ?Recorded diltiazem HCl 30 mg tablet 30 mg PO Q6H PRN atrial 04/22/23 fibrillation #10 tabs diltiazem HCl 240 mg 240 mg PO DAILY #30 caps 01/21/24 capsule,extended release 24 hr, controlled (DILT-XR) Allergies Allergy/AdvReac Type Severity Reaction Status Date / Time No Known Drug Allergies Allergy Verified 10/16/23 12:57 Review of Systems Status of ROS: Reports: 6 or more systems reviewed and unremarkable except as noted in History and below [facility] Medical History Cervical spine pain ?M54.2 - Cervicalgia (ICD-10) Warfarin anticoagulation ?Z79.01 - longterm (current) use of anticoagulants (ICD-10) History of aortic valve stenosis ?Z86.79 - Personal history of other diseases of the circulatory system (ICD- 10) History of Hodgkin's lymphoma ?Z85.71 - Personal history of Hodgkin lymphoma (ICD-10) History of subarachnoid hemorrhage ?Z86.79 - Personal history of other diseases of the circulatory system (ICD- 10) Surgical History History of mechanical aortic valve replacement ?Z95.2 - Presence of prosthetic heart valve (ICD-10) 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) ?R22.1 - Localized swelling, mass and lump, neck (ICD-10) ?Z85.9 - Personal history of malignant neoplasm, unspecified (ICD-10) History of open heart surgery (01/24/22) ?Z98.890 - Other specified postprocedural states (ICD-10) Social History What is your current living situation?: I presently have a place to live Problems where you live: no known problems Problems where you live details: none In the past 12 months, utilities in danger of being shut off: no In past 12 months, lack of transportation kept you from medical appts, meetings, work, or getting things needed for daily living: no In the past 12 mos, have been you worried that your food would run out before you had money to buy more?: never true In the past 12 mos, the food you bought just didn't last and you didn't have money to buy more?: never true Smoking Status: Never smoker Do you use any of these nicotine containing products: None Second hand tobacco smoke exposure: No How often do you have a drink containing alcohol: 2-3 times a week How many standard drinks containing alcohol do you have on a typical day: 1 or 2 AUDIT-C Alcohol total score: 3 Non-prescribed substance use: denies use How often does anyone, including family, friends and others, physically hurt you : never How often does anyone, including family, friends and others, insult or talk down to you: never How often does anyone, including family, friends and others, threaten you with harm: never How often does anyone, including family, friends and others, scream or curse at you: never Exam Const: Vital Signs, click to edit/add: Vital Signs - 24 hr 03/03/24 17:38 03/03/24 17:56 03/03/24 18:43 Temperature 98.2 F Pulse Rate 81 Pulse Rate [Pulse Oximeter] 82 Respiratory Rate 18 Blood Pressure Blood Pressure [Ri ght Upper Arm] 121/73 Pulse Oximetry 98 97 95 Oxygen Delivery Me thod Room Air 03/03/24 18:45 03/03/24 19:00 03/03/24 19:08 Temperature Pulse Rate 81 80 80 Pulse Rate [Pulse Oximeter] Respiratory Rate Blood Pressure 125/76 Blood Pressure [Ri ght Upper Arm] Pulse Oximetry 96 96 96 Oxygen Delivery Me thod 03/03/24 19:09 03/03/24 19:15 03/03/24 19:30 Temperature Pulse Rate 80 79 80 Pulse Rate [Pulse Oximeter] Respiratory Rate Blood Pressure Blood Pressure [Ri [facility] Upper Arm] Pulse Oximetry 96 100 98 Oxygen Delivery Me thod 03/03/24 19:45 Temperature Pulse Rate 79 Pulse Rate [Pulse Oximeter] Respiratory Rate Blood Pressure Blood Pressure [Ri t Upper Arm] Pulse Oximetry 97 Oxygen Delivery Me thod Patient is alert, interactive, no apparent distress. Skin is johnson. Sclera clear, conjugate gaze. Able to speak in complete sentences, speech is normal. He sits up easily, lungs are clear, good air entry, no wheezing or crackles. CV does sound regular at times but then can hear some irregularity. Has a mechanical sound eating heart sound. Abdomen is soft, nontender, nondistended, no organomegaly. He has no lower extremity edema, patient was ambulatory into the ED of his own accord. Documenting provider has reviewed patient's vital signs: yes Course Course ED Course: On monitoring his it looks to be flutter waves, EKG does confirm this. He will be on cardiac monitoring and pulse oximetry. Will get a portable chest x-ray to confirm no congestive heart failure but clinically and symptomatically he does not seem to have any. Will get full complement of labs, make sure there are no electrolyte abnormalities with recent GI losses this weekend. Will likely need to talk to Cardiology about him. We will make sure we know where his INR is today on his labs. Reevaluation(s) Time of Reevaluation #1: 18:45 Reevaluation #1: Have reviewed with patient that we are going to initiate a bolus of normal saline, sodium is just minimally low. We will give him oral potassium 25 mode equivalents of effervescent potassium as his potassium is 3.5 with 3.6 being lower limits of normal. I do not think he necessitates any IV potassium. He is still in a flutter 4-1 conduction. His notes that the believe at times he will go into atrial fibrillation and his heart rate will go really fast, it is self-limited and will come back down. While he is here, will ambulate him and see if we can precipitate any atrial fibrillation. We are still awaiting his troponin. At this time, it is likely that they are going to recommend outpatient management with follow-up with his glass cutting machine operator. Did discuss ZIO patch to see predominance of flutter versus fibrillation, he states he just had 1 prior to the medication reduction, he believes that he was in sinus rhythm during that time. Time of Reevaluation #2: 20:24 Reevaluation #2: Patient ambulated with pulse oximeter on, did feel little winded or short of breath. Before walking he was in the 80s with flutter, walking he went from 90- 102 for a pulse rate but not higher. His troponin is normal, no congestive heart failure. He is anticoagulated. He just does not require emergent intervention at this time. We have discussed that he may not have significant exercise tolerance in tell they have figured out resumption of normal sinus rhythm for him. He is going to have to follow up outpatient with Cardiology. We have discussed return for signs and symptoms of chest pain, congestive heart failure. Consultations Consultation #1: Have reviewed with Dr. Houston. He states if electrolytes are stable, workup is stable here, patient can be managed outpatient. He is rate controlled in the 80s, he may feel this but would describe this more of a nuisance for the patient short-term rather than emergency. He can contact his glass cutting machine operator tomorrow to get set up for outpatient follow-up and consideration of outpatient cardioversion with the possibility of MADDY prior. They may need to consider other antiarrhythmics, ablation but all this can be sorted out through his glass cutting machine operator outpatient. Time: 18:19 Vital Signs Vital signs: Initial Vital Signs Temperature 98.2 F 03/03/24 17:38 Temperature Source Temporal Artery Scan 03/03/24 17:38 Pulse Rate 82 03/03/24 17:38 Respiratory Rate 18 03/03/24 17:38 Blood Pressure 121/73 03/03/24 17:38 Blood Pressure Mean 89 03/03/24 17:38 Pulse Oximetry 98 03/03/24 17:38 Oxygen Delivery Method Room Air 03/03/24 17:38 Vital Signs Temperature 98.2 F 03/03/24 17:38 Pulse Rate 82 03/03/24 17:38 Respiratory Rate 18 03/03/24 17:38 Blood Pressure 121/73 03/03/24 17:38 Pulse Oximetry 98 03/03/24 17:38 Oxygen Delivery Method Room Air 03/03/24 17:38 Temperature 98.2 F 03/03/24 17:38 Pulse Rate 79 03/03/24 19:45 Respiratory Rate 18 03/03/24 17:38 Blood Pressure 125/76 03/03/24 19:08 Pulse Oximetry 97 03/03/24 19:45 Oxygen Delivery Method Room Air 03/03/24 17:38 Medications Administered Medications: Generic Name Dose Route Start Last Admin Trade Name Issa PRN Reason Stop Dose Admin Sodium Chloride 500 mls @ 500 mls/hr 03/03/24 18:42 03/03/24 19:02 0.9 % Sodium Chloride 500 Ml IV 03/03/24 19:41 500 mls/hr .Q1H ONE Administration Potassium Bicarbonate 25 meq 03/03/24 18:42 03/03/24 19:02 Potassium Bicarb 25 Meq Effervescent Tab PO 03/03/24 18:43 25 meq ONCE ONE Administration MDM - Arrhythmia/Palpitations Lab Data Attestation: I reviewed the patient's lab results. Labs: Lab Results 03/03/24 Range/Units 18:06 WBC 12.19 H (4.50-11.00) K/uL RBC 4.05 L (4.30-5.90) m/uL Hgb 12.4 L (13.5-17.5) gm/dL Hct 37.0 (37.0-53.0) % MCV 91 (80-100) fL MCH 31 (26-34) pg MCHC 34 (32-36) gm/dL RDW Coeff of Hortencia 14.3 (11.5-15.5) % Plt Count 252 (140-440) K/uL Neut % (Auto) 77.0 H (42.0-72.0) % Lymph % (Auto) 13.0 L (20-44) % Newton % (Auto) 8.4 (0.0-11.0) % Eos % (Auto) 1.1 (0.0-7.0) % Baso % (Auto) 0.2 (0.0-3.0) % Neut # (Auto) 9.40 H (1.7-7.0) K/uL Lymph # (Auto) 1.60 (0.90-2.90) K/uL Newton # (Auto) 1.00 H (0.00-0.90) K/UL Eos # (Auto) 0.10 (0.00-0.50) K/uL Baso # (Auto) 0.00 (0.00-0.30) K/uL Abs Immat Gran (auto) 0.00 (0.00-0.30) K/uL Imm/Tot Granulo (auto) 0.3 % INR 2.67 H (0.91-1.10) Sodium 132 L (135-149) mmol/L Potassium 3.5 L (3.6-5.1) mmol/L Chloride 99 (96-114) mmol/L Carbon Dioxide 23 (20-32) mmol/L Anion Gap 10 (7-15) mEq/L BUN 20 (7-30) mg/dL Creatinine 1.2 (0.5-1.5) mg/dL Estimated Creat Clear 73.21 Estimated GFR 71 ml/min Glucose 111 (60-115) mg/dL Calcium 8.8 (8.4-10.6) mg/dL Magnesium 2.0 (1.5-2.6) mg/dL Total Bilirubin 0.2 (0.1-1.5) mg/dL AST 27 (12-35) U/L ALT 21 (4-50) U/L Alkaline Phosphatase 55 (40-150) U/L Troponin I < 0.01 L (0.01-0.04) ng/mL NT-Pro-B Natriuret Pep 1310 pg/mL Total Protein 7.0 (6.0-8.3) g/dL Albumin 4.3 (3.3-5.0) g/dL Imaging Data Chest x-ray: Attestation: I have reviewed the pertinent imaging results. Radiologist's impression: Patient: THADDEUS DIEHL Facility:?[facility] Patient ID:?[id number] Site Patient ID:?[id number]. Site :?[id number] Study:?XRay-Chest PORTABLE-03/03/2024 6:18:26 PM Ordering Physician:Arianne Love Final Report: Indication: A FIB. Technique: Chest 1 view. Comparison: Chest radiograph dated 01/20/2024. Findings/Impression: Cardiovascular and mediastinum: Heart size and vasculature are unchanged in caliber and appearance. Lungs and pleural space: Lungs are clear. No sign of infiltrate or mass. No sign of pleural effusion. No pneumothorax. Bones and soft tissues: No acute findings. Sternotomy wires. Dictated by Weston Gunn MD @ 03/03/2024 6:44:46 PM (Electronic Signature) ECG Data Attestation: I personally reviewed and interpreted this ECG as follows: (Atrial flutter, 4-1 conduction, rate is 81 beats per minute. Q-waves inferiorly, artifact in V3.) ECG interpretation date: 03/03/24 ECG interpretation time: 17:50 Prior ECG tracings: available for review (Had atrial flutter 4-1 conduction on January 19.) Discharge Plan Discharge Clinical Impression: Atrial flutter Qualifiers: Atrial flutter type: typical Qualified Code(s): I48.3 - Typical atrial flutter Patient Disposition: Home, Self-Care Condition: Stable Instructions: Atrial Flutter (ED) Additional Instructions: INR is 2.67 today, can let your Coumadin clinic know tomorrow. For the atrial flutter, stay on the 240 mg of Cardizem and the 50 mg of metoprolol. Need to call your glass cutting machine operator tomorrow and let them know that your back in atrial flutter but rate controlled at this time. They will need to figure out if they are going to get you scheduled for electrophysiology consult, consider anti arrhythmic medicines or potential cardioversion. In the meantime, should you develop chest pain, have sustained heart rate over 120 that is not resolving with rest, developed lower extremity edema or increasing shortness of breath or difficulty breathing, do need to be re-evaluated. Activity Level: Activity as Tolerated Prescriptions: No Action metoprolol succinate 50 mg tablet extended release 24 hr 50 mg PO DAILY warfarin 3 mg tablet 4.5 - 6 mg PO DAILY Rx Instructions: 6mg Tues, 4.5mg all other days famotidine 40 mg tablet 40 mg PO DAILY nitroglycerin 0.4 mg tablet, sublingual 0.4 mg sublingual Q5M PRN aspirin 81 mg tablet,delayed release (DR/EC) 81 mg PO DAILY diltiazem HCl 30 mg tablet 30 mg PO Q6H PRN (Reason: atrial fibrillation) Qty: 10 0RF rosuvastatin 40 mg tablet 40 mg PO HS sildenafil 50 mg tablet 50 - 100 mg PO DAILY PRN diltiazem HCl [DILT-XR] 240 mg capsule,ext.rel 24h degradable 240 mg PO DAILY Qty: 30 0RF diltiazem HCl 120 mg capsule,ext.rel 24h degradable 120 mg PO DAILY Follow Up/Referrals: Miguel Freitas MD [Primary Care Provider] - Stand Alone Forms: [employer] Info Instructions
--- NOTE | 2024-03-03 17:56 | CRLHL7_ITS ---
For Patients: As a result of the Century Cures Act, medical imaging exams and procedure reports are released immediately into your electronic medical record. You may view this report before your referring provider. If you have questions, please contact your health care provider. Indication: A FIB. Technique: Chest 1 view. Comparison: Chest radiograph dated 01/20/2024. Findings/Impression: Cardiovascular and mediastinum: Heart size and vasculature are unchanged in caliber and appearance. Lungs and pleural space: Lungs are clear. No sign of infiltrate or mass. No sign of pleural effusion. No pneumothorax. Bones and soft tissues: No acute findings. Sternotomy wires. Dictated by Weston Gunn MD @ 03/03/2024 6:44:46 PM (Electronically Signed)
--- OUTSIDE RECORDS SUMMARY | 2024-03-03 18:00 | XMS_ITS | Clinical Summary ---
Author Organization [facility] Address [place], [place] [address] Care Team Providers Care French Lecturer Name Role Phone Miguel Freitas MD Primary Care Provider [phone] Allergies No known active allergies Medications Medication Sig Dispensed Refills Start Date End Date Status acetaminophen (TYLENOL EXTRA STRGTH) 500 mg tablet Take 2 Tablets (1,000 mg) by mouth every 6 hours if needed for Pain or Headache. Max acetaminophen dose: 4000mg in 24 hrs. 0 2 Active rosuvastatin (CRESTOR) 40 mg tabletIndications:H yperlipidemia, unspecified hyperlipidemia type Take 1 Tablet (40 mg) by mouth at bedtime. 90 Tablet 3 3 Active Additional Information Patient taking differently:40 mg OralDAILY, Informant: Patient's Recall, Reported on 10/17/2023 amoxicillin (AMOXIL) 500 mg capsuleIndications: S/P aortic valve replacement Take 4 tablets by mouth 30-60 min prior to any dental work or cleaning 30 Capsule 3 Active famotidine (PEPCID) 40 mg tabletIndications:H eartburn Take 1 Tablet (40 mg) by mouth once daily. 90 Tablet 3 3 Active nitroglycerin (NITROSTAT) 0.4 mg sublingual tabletIndications:S /P CABG x [address] 1 Tablet (0.4 mg) under the tongue every 5 minutes if needed for Chest Pain. 5 Tablet 3 Active sildenafil citrate (VIAGRA) 50 mg tabletIndications:E rectile dysfunction, unspecified erectile dysfunction type Take 1 Tablet (50 mg) by mouth once daily if needed for Erectile Dysfunction. Take 30min to 4 hours before sexual activity. Max 100mg/24hr 12 Tablet 11 3 Active metoprolol succinate (TOPROL XL) 50 mg sustained-release tabletIndications:P AF (paroxysmal atrial fibrillation) (HC) Take 1 Tablet (50 mg) by mouth once daily. 90 Tablet 3 4 Active MELATONIN ORAL Take 1 Tablet by mouth at bedtime if needed. Active aspirin (ECOTRIN) 81 mg enteric coated tabletIndications:C oronary artery disease involving resighini coronary artery of resighini heart without angina pectoris Take 1 Tablet (81 mg) by mouth once daily. Recommended daily lifelong 4 Active dilTIAZem (CARDIZEM) 30 mg tabletIndications:P AF (paroxysmal atrial fibrillation) (HC) Take 1 tablet every 6 hours as needed for atrial fibrillation. 20 Tablet 2 4 Active warfarin (COUMADIN) 3 mg tabletIndications:S /P aortic valve replacement,S/P CABG x 3,Anticoagulation monitoring, INR range 2-3 Take by mouth 6 mg (3 mg x 2) every Tue; 4.5 mg (3 mg x 1.5) all other days in the evening OR as directed 145 Tablet 4 Active dilTIAZem (DILACOR XR; DILTIA XT) 120 mg Extended-Release capsuleIndications: PAF (paroxysmal atrial fibrillation) (HC),Essential hypertension Take 1 Capsule (120 mg) by mouth once daily. 90 Capsule 2 4 Active dilTIAZem (DILACOR XR; DILTIA XT) 120 mg Extended-Release capsuleIndications: PAF (paroxysmal atrial fibrillation) (HC),Essential hypertension Take 1 Capsule (120 mg) by mouth two times daily. 180 Capsule 1 4 02/19/20 24 Discontinu ed(*Medica tion adjustment ) Active Problems Problem Noted Date Diagnosed Date Essential hypertension 10/24/2023 SAH (subarachnoid hemorrhage) 10/17/2023 Acute gout of ankle 04/12/2023 PAF (paroxysmal atrial fibrillation) 03/13/2023 S/P aortic valve replacement 01/24/2022 Overview (01/24/2022): VALVE AORTIC 25MM ON-X MECHANICAL STD SEWING RING IMPLANTED BY DR. LANDERS ON 01/24/22 AT 1124. REF: ONXAE-25, SN: [id number], EXP: 06/27/2027 S/P CABG x 3 01/24/2022 Overview (01/24/2022): CABGx3: MAC to LAD, SVG to OM and SVG to RCA Anticoagulation monitoring, INR range 2-3 (goal 2.5) 01/24/2022 Overview (04/05/2022): Goal INR: 2.0 - 3.0. After 3 months, as per Animal Herder about whether or not INR goal can [...] Encounters Date Type Department Care Team Description 02/28/2024 Telephone [facility] [address] [place] [address] Miguel Freitas MD Anticoagulation (AC ORDER) 02/19/2024 9:00 AM CDT Office Visit [facility] [address] [place] [address] Tommie Calvert MD Follow Up (Initial Consult /follow up to 01/19 ECHO and hospitalization for AFib. 14 day Zio completed. EKG 01/22/PT states feeling not that great /Headaches, fatigued,, and occ dizziness /MRI last Sunday /After started BP medication he has not been feeling great. /Went into AFIB about a month ago/He doesn't believe he has been back in it ) 02/19/2024 Telephone [facility] [address] [place] [address] Miguel Freitas MD Results (MRI results) 02/19/2024 Travel 02/14/2024 8:00 AM CDT Ancillary Procedure [facility] [address] [place] [address] 02/14/2024 Travel 01/29/2024 Orders Only [facility] [address] [facility] [address] Miguel Freitas MD 1 scan: (1-Ord) NFLD-EKG-01/23/24 01/23/2024 10:05 AM CDT Office Visit [facility] [address] [facility] [address] Miguel Freitas MD Hospital F/U (Atrial fib) 01/23/2024 Travel 01/21/2024 8:15 AM CDT Office Visit [address] [place] [id number] 01/21/2024 Telephone [facility] [address] [facility] [address] Miguel Freitas MD Follow Up 01/20/2024 12:00 PM CDT Ancillary Procedure [facility] [place] [facility] [address] [place] [address] 01/20/2024 Orders Only [facility] Scanner 1 scan: (1-Ord) [facility], CT HEAD/BRAIN WO CON, 01/20/2024 01/20/2024 Orders Only [facility] Scanner 1 scan: (1-Ord) [place], CHEST 1V PORTABLE, 01/20/2024 01/20/2024 Travel 01/20/2024 Telephone [facility] [address] [facility] [address] [place] [phone] Noé Galicia MD Atrial Fibrillation 01/19/2024 Refill [facility] [address] [place] [address] Miguel Freitas MD Refill Request (Warfarin) 01/07/2024 Nurse Triage [facility] [address] [facility] [address] Miguel Freitas MD Bleeding 01/01/2024 11:15 AM CDT Office Visit [facility] [address] [facility] [address] Miguel Freitas MD Follow Up (Go over results/Still low on energy and feeling dizzy at times) 01/01/2024 Travel 12/27/2023 10:00 AM CDT Orders Only [facility] [address] [place] [address] [facility], [place] [facility] 12/27/2023 Anticoagulation (warfarin) [facility] [address] [facility] [address] 1, [place] Anticoagulation 12/27/2023 Travel from Last 3 Months Immunizations Name Administration [...] before 1989 Alcohol Use Standard Drinks/Week Comments Not Currently 0 (1 standard drink = 0.6 oz [...] file 09/04/2023 Food Insecurity Answer Date Recorded Do you worry your food will run out before you are able to buy more? 1 09/04/2023 Transportation Needs Answer Date Record ed Lack of Transportation (Medical) 1 09/04/2023 Housing Stability Answer Date Recorded What is your housing situation today? 1 09/04/2023 Sex and Gender Information Value Date Recorded Sex Assigned at Not on file Gender Identity Not on file Sexual Orientation Not on file Obstetrics History Last Filed Vital Signs Vital Sign Reading Time Taken Comments Blood Pressure 135/86 02/19/2024 8:54 AM CDT Pulse 64 02/19/2024 8:54 AM CDT Temperature 36.6 ??C (97.8 ??F) 01/01/2024 1 1:20 AM CDT Respiratory Rate 18 10/19/2023 1:00 PM CDT Oxygen Saturation 98% 02/19/2024 8:54 AM CDT Inhaled Oxygen Concentration - - Weight 103.1 kg (227 lb 3.2 oz) 02/19/2024 8:54 AM CDT Height 177.8 cm (5' 10) 02/19/2024 8:54 AM CDT Body Mass Index 32.6 02/19/2024 8:54 AM CDT Plan of Treatment Upcoming Encounters Date Type Department Care Team (Late st Contact Info) Description 03/04/2024 3:00 PM CDT Orders Only [facility] [address] [place] [address] [facility] [place] 03/05/2024 1:00 PM CDT Office Visit [facility] [place] [facility] [address] [place] [address] Noé Haines MD [address] [place] [address] Health Maintenance Due Date Last Done Comments HIV for age 15-65 09/18/1982 Hepatitis C screening for age 18-79 09/18/1985 COVID-19 vaccine series ( season) 2024 Influenza for age 50-64 01/13/2024 03/14/2019, 03/12 Depression screening for age 12+ 10/26/2024 10/27/2023, 10/27/2023, 10/27/2023, Additional history exists BMI (ht and wt on same day) for age 18+ 02/18/2025 02/19/2024, 03/13/2023, 10/18/2022, Additional history exists Lipids for age 45-75 02/20/2028 02/19/2023, 05/17/2022, 02/10/2022, Additional history exists Tetanus booster 08/18/2031 08/17/2021 Colonoscopy through age 75 08/27/203108/26, 08/26/2021, 08/26/2021 Tdap Completed 08/17/2021 Zoster (shingles) series for age 50+ Completed 12/13/2021, 08/17/2021 Pneumococcal series for age 6-64 Aged Out No longer eligible based on patient's age to complete this topic Medical Devices Implanted Type Area Monogram Maker Device Identifier Shelf Expiration Date Model / Serial / Lot Valve Aortic 25mm On-X Mechanical Std Sewing Ring - [id number] Implanted:Qty: 1 on 01/24/2022 by Nawaf Landers MBBS at [facility] N/A: Aortic Valve [employer] ONXAE-25 06/27/2027 ONXAE-25 / [id number] / Procedures Procedure Name Priority Date/Time Associated Diagnosis Comments MR HEAD BRAIN WO Routine 02/14/2024 8:57 AM CDT SAH (subarachnoid hemorrhage) (HC) AR READING EKG - NO CHARGE, COMP ONLY Routine 01/29/2024 3:57 PM CDT PAF (paroxysmal atrial fibrillation) (HC) EKG 12 LEAD Routine 01/29/2024 3:57 PM CDT PAF (paroxysmal atrial fibrillation) (HC) EXTENDED HOLTER BETTIE 01/21/2024 PAF (paroxysmal atrial fibrillation) (HC) ECHO TTE COMPLETE W CONTRAST Routine 01/20/2024 12:53 PM CDT Atrial fibrillation with RVR (HC) SCAN-CT INTERPRETATION 12:00 AM CDT SCAN-RADIOLOGY REPORT 01/20/2024 12:00 AM CDT CBC WITH AUTO DIFFERENTIAL Routine 12/27/2023 10:02 AM CDT Other fatigue TSH WITH REFLEX Routine 12/27/2023 10:02 AM CDT Other fatigue CBC WITH AUTO DIFFERENTIAL Routine 12/27/2023 10:02 AM CDT Other fatigue BASIC METABOLIC PANEL Routine 12/27/2023 10:02 AM CDT Hyperkalemia PROTIME-INR STAT 12/27/2023 10:02 AM CDT S/P aortic valve replacement S/P CABG x 3 Anticoagulation monitoring, INR range 2-3 LIPID PANEL Routine 02/19/2023 10:03 AM CDT Coronary artery disease involving resighini coronary artery of resighini heart without angina pectoris S/P aortic valve replacement S/P CABG x 3 COLONOSCOPY SCREENING Routine 08/26/2021 7:39 AM CDT Screening for colon cancer from Last 3 Months or Most Recently Relevant to Health Maintenance Results * MR BRAIN WO CONTRAST (02/14/2024 8:57 AM CDT) Anatomical Region Laterality Modality BRAIN, HEAD Magnetic Resonan ce 02/14/2024 9:52 AM CDT Narrative 02/14/2024 9:52 AM CDT For Patients: ??As a result of the 21st Century Cures Act, medical imaging exams and procedure reports are released immediately into your electronic medical record. ??You may view this report before your referring provider. ??If you have questions, please contact your health care provider. Indication: History of subarachnoid hemorrhage Technique: Noncontrast sagittal T1 weighted, axial FLAIR, axial T2 weighted, and axial diffusion weighted sequences are provided. Comparison: No prior studies available for comparison at this institution. Findings: The ventricles, sulci and gyri are normal size, shape and contour for age. ??The midline structures are centrally located with no evidence of shift. Few punctate scattered foci of T2 prolongation in the right frontal lobe are nonspecific. There are no suspicious intra or extra-axial fluid collections. Punctate focus of susceptibility artifact in the right temporal lobe likely represents remote microhemorrhage. There is a 4 mm focus of diffusion restriction and T2 prolongation in the left superior parietal lobule (series 7, image 21). Expected flow voids in the cavernous carotids and basilar artery. Incidental dural ossifications along the interhemispheric fissure. Impression: 1. There is a 4 mm focus of diffusion restriction and T2 prolongation in the left superior parietal lobule compatible with recent ischemic infarct. 2. Few punctate scattered foci of T2 prolongation in the right frontal lobe are nonspecific but may represent sequela of migraine headaches or chronic small vessel ischemic changes. Dictated by Mehran Husain MD @ 02/14/2024 9:52:37 AM (Electronically Signed) Procedure Note Mehran Husain MD - 02/14/2024 For Patients: As a result of the Cures Act, medical imagingexams and procedure reports are released immediately into your electronicmedical record. You may view this report before your referring provider.If you have questions, please contact your health care provider. Indication: History of subarachnoid hemorrhage Technique: Noncontrast sagittal T1 weighted, axial FLAIR, axial T2 weighted, andaxial diffusion weighted sequences are provided. Comparison: No prior studies available for comparison at this institution. Findings: The ventricles, sulci and gyri are normal size, shape and contour for age.The midline structures are centrally located with no evidence of shift.Few punctate scattered foci of T2 prolongation in the right frontal lobeare nonspecific. There are no suspicious intra or extra-axial fluidcollections. Punctate focus of susceptibility artifact in the righttemporal lobe likely represents remote microhemorrhage. There is a 4 mmfocus of diffusion restriction and T2 prolongation in the left superiorparietal lobule (series 7, image 21). Expected flow voids in the cavernouscarotids and basilar artery. Incidental dural ossifications along theinterhemispheric fissure. Impression: 1. There is a 4 mm focus of diffusion restriction and T2 prolongation inthe left superior parietal lobule compatible with recent ischemic infarct. 2. Few punctate scattered foci of T2 prolongation in the right frontallobe are nonspecific but may represent sequela of migraine headaches orchronic small vessel ischemic changes. Dictated by Mehran Husain MD @ 02/14/2024 9:52:37 AM (Electronically Signed) Miguel Freitas MD MR * EKG 12 LEAD (01/29/2024 3:57 PM CDT) Miguel Freitas MD EKG ORD * AR READING EKG - NO CHARGE, COMP ONLY (01/29/2024 3:57 PM CDT) Miguel Freitas MD PB - PROVIDER READ INGS * EXTENDED HOLTER (01/21/2024) 01/21/2024 Narrative Mehran Chang MD - 02/12/2024 7:53 AM CDT Agree with Findings. Miguel Freitas MD CARDIAC SERVICES O RD * ECHO TTE COMPLETE W CONTRAST (01/20/2024 12:53 PM CDT) AORTIC VALVE MEAN PG 5 mmHg EJECTION FRACTION 66 % LVEDD 5.0 cm EJECTION FRACTION 60 - 65% Anatomical Region Laterality Modality Ultrasound 01/20/2024 12:2 0 PM CDT Narrative 01/24/2024 12:20 PM CDT ECHOCARDIOGRAM THADDEUS CHARLTON ?Accession#: ?? [id number] : ?1965 58 years Study Date: ?? 01/20/2024 12:20:41 PM Gender: M ? BP: ? 117/72 mmHg Height: 178.00 cm ? BSA: ?2.23 m? ? ? Weight: 106.00 kg ? Tech: ? MSR ?Referring MD: TORIE BLACKWELL Site: ? [facility] Reading Location: Mobile IP Patient Location: Inpatient. Procedure: Color Doppler, Spectral Doppler and 2D w/ Contrast. Indication for study: Atrial fibrillation with RVR Cardiac Rhythm: Normal sinus.Study quality: Fair. Final Impressions: 1. Normal LV size, normal wall thickness, normal global systolic function with an estimated EF of 60 - 65%. 2. Right ventricular cavity size is normal, global systolic RV function is mildly reduced. 3. The aortic valve is functioning 25 mm mechanical On-X AVR, no stenosis and trivial regurgitation. 4. The mitral valve is sclerotic and mean mitral gradient 4.7 mmHg at hr of 73 bpm, trace mitral regurgitation. 5. Echo contrast was administered to enhance visualization of all left ventricular segments. Comparison Compared to prior exam images and report of 10/18/2023: - mean aortic gradient has decreased. Chamber Sizes and Function Normal left ventricular size, normal wall thickness, normal global systolic function with an estimated EF of 60 - 65%. Left atrial size is normal. Right ventricular cavity size is normal, global systolic RV function is mildly reduced. The right atrium is normal. The pulmonary artery is not well visualized. The sinus of Valsalva is not well visualized. The ascending aorta is normal sized. Valves, RV Pressures and Diastolic Function The aortic valve is functioning 25 mm mechanical On-X replacement, no stenosis and trivial regurgitation. The mitral valve is sclerotic and mean mitral gradient 4.7 mmHg at hr of 73 bpm, trace mitral regurgitation. Mitral annular calcification is present. Indeterminate pattern of LV diastolic filling. The tricuspid valve is normal in structure. Tricuspid regurgitation is regurgitation is not evident. The pulmonic valve is not well visualized. Unable to determine pulmonary regurgitation. Masses, Effusion, Shunts There is no pericardial effusion. The inferior vena cava is normal sized, respiratory size variation greater than 50%. No left to right shunting was detected by limited color flow Doppler interrogation of the interatrial septum. MEASUREMENTS AND CALCULATIONS 2-D Measurements and LV Function: LVID (d) 5.0 cm LV FS% (2D) ?? 36 % LVID (s) 3.2 cm LVOT diameter 2.1 cm IVS (d) ??1.1 cm HR ?73 bpm LVPW (d) 1.1 cm LA Vol index ??24 ml/m2 Asc Ao ?? 3.4 cm RV Max 4C (d) 4.2 cm Diastology: Mitral ?Tissue Doppler E Peak 1.4 m/s ??e', Septum ? 0.09 m/s A Peak 1.0 m/s ??e', Lateral ?0.12 m/s E/A ?1.4 ?E/e' Average ?? 13.98 DT ? 138 msec Aortic Valve: Vmax ? 1.5 m/s ??MENDEZ (V) ?? 2.62 cm? ? ? VTI ?0.29 m ?? MENDEZ (I) ?? 2.65 cm? ? ? LVOT V max 1.1 m/s ??Max PG ?9 mmHg LVOT VTI ?? 0.22 m ?? Mean PG ?? 5 mmHg SV ? 78 ml ?Dim Index 0.76 SV index ?? 35 ml/m? ? ? CO ?5.7 l/min ?CI ?2.5 l/min/m? ? ? Mitral Valve: MVA ? 5.5 cm? ? ? MV P 1/2 ??40 msec MV Mean G 5 mmHg MV VTI ?0.39 m Tricuspid Valve and estimated PA pressures: TAPSE 1.2 cm Pulmonic Valve: PIEDV 1.0 m/s . This study was interpreted by an [facility] accredited facility. CC: HIM (med records) [facility], Med/Surg - IP [facility]. ??Final ?? Procedure Note Kenny López MD - 01/24/2024 ECHOCARDIOGRAM THADDEUS CHARLTON : 1965 58 years Study Date: 01/20/2024 12:20:41 PM Gender: M BP: 117/72 mmHg Height: 178.00 cm BSA: 2.23 m? ? ? Weight: 106.00 kg Tech: MSR Referring MD: TORIE BLACKWELL Site: [facility] Reading Location: Mobile IP Patient Location: Inpatient. Procedure: Color Doppler, Spectral Doppler and 2D w/ Contrast. Indication for study: Atrial fibrillation with RVR Cardiac Rhythm: Normal sinus.Study quality: Fair. Final Impressions: 1. Normal LV size, normal wall thickness, normal global systolic functionwith an estimated EF of 60 - 65%. 2. Right ventricular cavity size is normal, global systolic RV functionis mildly reduced. 3. The aortic valve is functioning 25 mm mechanical On-X AVR, no stenosisand trivial regurgitation. 4. The mitral valve is sclerotic and mean mitral gradient 4.7 mmHg at hrof 73 bpm, trace mitral regurgitation. 5. Echo contrast was administered to enhance visualization of all leftventricular segments. Comparison Compared to prior exam images and report of 10/18/2023: - mean aortic gradient has decreased. Chamber Sizes and Function Normal left ventricular size, normal wall thickness, normal globalsystolic function with an estimated EF of 60 - 65%. Left atrial size isnormal. Right ventricular cavity size is normal, global systolic RVfunction is mildly reduced. The right atrium is normal. The pulmonaryartery is not well visualized. The sinus of Valsalva is not wellvisualized. The ascending aorta is normal sized. Valves, RV Pressures and Diastolic Function The aortic valve is functioning 25 mm mechanical On-X replacement, nostenosis and trivial regurgitation. The mitral valve is sclerotic and meanmitral gradient 4.7 mmHg at hr of 73 bpm, trace mitral regurgitation.Mitral annular calcification is present. Indeterminate pattern of LVdiastolic filling. The tricuspid valve is normal in structure. Tricuspidregurgitation is regurgitation is not evident. The pulmonic valve is notwell visualized. Unable to determine pulmonary regurgitation. Masses, Effusion, Shunts There is no pericardial effusion. The inferior vena cava is normal sized,respiratory size variation greater than 50%. No left to right shunting wasdetected by limited color flow Doppler interrogation of the interatrialseptum. MEASUREMENTS AND CALCULATIONS 2-D Measurements and LV Function: LVID (d) 5.0 cm LV FS% (2D) 36 % LVID (s) 3.2 cm LVOT diameter 2.1 cm IVS (d) 1.1 cm HR 73 bpm LVPW (d) 1.1 cm LA Vol index 24 ml/m2 Asc Ao 3.4 cm RV Max 4C (d) 4.2 cm Diastology: Mitral Tissue Doppler E Peak 1.4 m/s e', Septum 0.09 m/s A Peak 1.0 m/s e', Lateral 0.12 m/s E/A 1.4 E/e' Average 13.98 DT 138 msec Aortic Valve: Vmax 1.5 m/s MENDEZ (V) 2.62 cm? ? ? VTI 0.29 m MENDEZ (I) 2.65 cm? ? ? LVOT V max 1.1 m/s Max PG 9 mmHg LVOT VTI 0.22 m Mean PG 5 mmHg SV 78 ml Dim Index 0.76 SV index 35 ml/m? ? ? CO 5.7 l/min CI 2.5 l/min/m? ? ? Mitral Valve: MVA 5.5 cm? ? ? MV P 1/2 40 msec MV Mean G 5 mmHg MV VTI 0.39 m Tricuspid Valve and estimated PA pressures: TAPSE 1.2 cm Pulmonic Valve: PIEDV 1.0 m/s . This study was interpreted by an [facility] accredited facility. CC: ANN (med records) [facility], Med/Surg - IP [facility]. Final Torie Blackwell ECHO ORD * SCAN-RADIOLOGY REPORT (01/20/2024 12:00 AM CDT) Anatomical Region Laterality Modality Other Scanner OTHER * SCAN-CT INTERPRETATION (01/20/2024 12:00 AM CDT) Anatomical Region Laterality Modality Other Scanner OTHER * (ABNORMAL) CBC WITH AUTO DIFFERENTIAL (12/27/2023 10:02 AM CDT) [facility] WHITE BLOOD COUNT 6.9 4.5 - 11.0 thou/cu mm 12/27/2023 10:16 AM CDT [facility] RED BLOOD COUNT 4.09(L) 4.30 - 5.90 mil/cu mm 12/27/2023 10:16 AM CDT [facility] HEMOGLOBIN 13.0(L) 13.5 - 17.5 g/dL 12/27/2023 10:16 AM CDT [facility] HEMATOCRIT 37.7 37.0 - 53.0 % 12/27/2023 10:16 AM CDT [facility] MCV 92 80 - 100 fL 12/27/2023 10:16 AM CDT [facility] MCH 31.8 26.0 - 34.0 pg 12/27/2023 10:16 AM CDT [facility] MCHC 34.5 32.0 - 36.0 g/dL 12/27/2023 10:16 AM CDT [facility] RDW 15.8(H) 11.5 - 15.5 % 12/27/2023 10:16 AM CDT [facility] PLATELET COUNT 309 140 - 440 thou/cu mm 12/27/2023 10:16 AM CDT [facility] MPV 9.4 6.5 - 11.0 fL 12/27/2023 10:16 AM CDT [facility] % NEUT 58.0 % 12/27/2023 10:16 AM CDT [facility] % LYMPH 28.0 % 12/27/2023 10:16 AM CDT [facility] % MONO 10.8 % 12/27/2023 10:16 AM CDT [facility] % EOS 2.6 % 12/27/2023 10:16 AM CDT [facility] % BASO 0.6 % 12/27/2023 10:16 AM CDT [facility] ABSOLUTE NEUTROPHILS 4.0 1.7 - 7.0 thou/cu mm 12/27/2023 10:16 AM CDT [facility] ABSOLUTE LYMPHOCYTES 1.9 0.9 - 2.9 thou/cu mm 12/27/2023 10:16 AM CDT [facility] ABSOLUTE MONOCYTES 0.7 <0.9 thou/cu mm 12/27/2023 10:16 AM CDT [facility] ABSOLUTE EOSINOPHILS 0.2 <0.5 thou/cu mm 12/27/2023 10:16 AM CDT [facility] ABSOLUTE BASOPHILS 0.0 <0.3 thou/cu mm 12/27/2023 10:16 AM CDT [facility] Blood BLOOD SPECIMEN / Unknown Venipuncture / Unknown 12/27/2023 10:02 AM CDT 12/27/2023 10:03 AM CDT Miguel Freitas MD HEMATOLOGY Performing Organization Address [facility] Co de Phone Number [facility] [address] [place] [address], [place] [phone] * TSH WITH REFLEX (12/27/2023 10:02 AM CDT) TSH 2.38 0.27 - 4.20 uIU/mL 12/27/2023 4:52 PM CDT [facility] Blood BLOOD SPECIMEN / Unknown Venipuncture / Unknown 12/27/2023 10:02 AM CDT 12/27/2023 10:03 AM CDT Narrative [facility] - 12/27/2023 4:52 PM CDT In Adults, TSH values between 5.00 and 10.00 uIU/ml do not necessarily indicate the presence of Hypothyroidism. Correlation with clinical findings such as presence of goiter and/or Thyroperoxidase (TPO) Antibody may be helpful. For more information please refer to MEGAN 2004; 291: 228-238. Miguel Freitas MD CHEMISTRY Performing Organization Address City/[facility]/ZIP Co de Phone Number [facility] [address] [place] [address], [place] * (ABNORMAL) PROTIME-INR (12/27/2023 10:02 AM CDT) INR 2.2(H) <1.3 12/27/2023 3:36 PM CDT [facility] PROTIME 23.6(H) 10.3 - 12.3 sec 12/27/2023 3:36 PM CDT [facility] Blood BLOOD SPECIMEN / Unknown Venipuncture / Unknown 12/27/2023 10:02 AM CDT 12/27/2023 10:03 AM CDT Narrative [facility] - 12/27/2023 3:36 PM CDT ?Therapeutic Range [...] is on UFH. Miguel Freitas MD HEMATOLOGY [facility] [address] [place] [address], * (ABNORMAL) BASIC METABOLIC PANEL (12/27/2023 10:02 AM CDT) SODIUM 135(L) 136 - 145 mmol/L 12/27/2023 4:52 PM CDT [facility] POTASSIUM 4.7 3.5 - 5.1 mmol/L 12/27/2023 4:52 PM CDT [facility] CHLORIDE 100 98 - 107 mmol/L 12/27/2023 4:52 PM CDT [facility] CO2,TOTAL 24 22 - 29 mmol/L 12/27/2023 4:52 PM CDT [facility] ANION GAP 11 5 - 18 12/27/2023 4:52 PM CDT [facility] GLUCOSE 88 70 - 99 mg/dL 12/27/2023 4:52 PM CDT [facility] CALCIUM 9.4 8.6 - 10.0 mg/dL 12/27/2023 4:52 PM CDT [facility] BUN 15 6 - 20 mg/dL 12/27/2023 4:52 PM CDT [facility] CREATININE 1.05 0.70 - 1.20 mg/dL 12/27/2023 4:52 PM CDT [facility] BUN/CREAT RATIO 14 10 - 20 4 4:52 PM CDT [facility] eGFR 83(L) >90 mL/min/1.7 3m2 12/27/2023 4:52 PM CDT [facility] Comment:As of 2021, eG FR [...] 10:03 AM CDT Miguel Freitas MD CHEMISTRY [facility] [address] [place] [address], * LIPID PANEL (02/19/2023 10:03 AM CDT) CHOLESTEROL,TOTAL 195 100 - 199 mg/dL 02/19/2023 10:13 PM CDT [facility] Comment: Cholesterol, Total Reference Ranges Desirable <200 mg/dL Borderline 200-239 mg/dL High >=240 mg/dL TRIGLYCERIDES 107 <150 mg/dL 02/19/2023 10:13 PM CDT [facility] HDL CHOLESTEROL 65 >40 mg/dL 10:13 PM CDT [facility] NON-HDL CHOLESTEROL 130 <145 mg/dl 02/19/2023 10:13 PM CDT [facility] CHOL/HDL RATIO 3.00 <4.50 02/19/2023 10:13 PM CDT [facility] LDL CHOLESTEROL 109 <=130 mg/dL 02/19/2023 10:13 PM CDT [facility] VLDL CHOLESTEROL 21 <=30 mg/dL 02/20/20 10:13 PM CDT [facility] Blood BLOOD SPECIMEN / Unknown Venipuncture / Unknown 02/19/2023 10:03 AM CDT 02/19/2023 10:07 AM CDT Kenny López MD [facility]STRY [facility] [address] [place] [address], * COLONOSCOPY (08/26/2021 8:54 AM CDT) 08/26/2021 8:54 AM CDT Narrative Transcriptions Rivas Hurley MD - 08/26/2021 9:22 AM CDT Patient Name: Thaddeus Charlton Procedure Date: 08/26/2021 Gender: Male Date of : 1965 Admit Type: Outpatient Procedure: Colonoscopy Proceduralist: Rivas Hurley MD , Yazmin Loza RN (Nurse) Referring MD: Miguel Freitas Indications/Pre-Op [...] 8:54 AM Procedure Code(s): --- Professional --- 35904, Colonoscopy, flexible; diagnostic, including collection of specimen(s) bybrushing or washing, when performed (separateprocedure) Diagnosis Code(s): --- Professional --- Z12.11, Encounter for screening formalignant neoplasm of colon K57.30, Diverticulosis of large intestine without perforation or abscess withoutbleeding CPT copyright 2020 [employer]. All rights reserved. The codes documented in this report are preliminary and upon health and safety technician reviewmay be revised to meet current compliance [...] Code Status Discussion: Reviewed Preferences Care Teams French Lecturer Relationship Specialty Start Date End Date [place] [address] [place] [address] PCP - General Family Practice 10/28/21
[2024-03-03 18:15] LABS: Basophils Percent Auto 0.2 % (0.0-3.0); Eosinophils Percent Auto 1.1 % (0.0-7.0); Hemoglobin* 12.4 gm/dL (13.5-17.5); Immature Granulocytes Pct Auto 0.3 %; Mean Corpuscular HGB Conc 34 gm/dL (32-36); Mean Corpuscular Hemoglobin 31 pg (26-34); Mean Corpuscular Volume 91 fL (80-100); Monocytes Percent Auto 8.4 % (0.0-11.0); Platelet Count* 252 K/uL (140-440); RDW Coefficient of Variation % 14.3 % (11.5-15.5); Red Blood Count 4.05 m/uL (4.30-5.90); Slide Review Reflex No; White Blood Count* 12.19 K/uL (4.50-11.00)
[2024-03-03 18:32] LABS: Albumin* 4.3 g/dL (3.3-5.0); Chloride* 99 mmol/L (96-114)
[2024-03-03 18:33] LABS: Potassium* 3.5 mmol/L (3.6-5.1); Sodium* 132 mmol/L (135-149)
[2024-03-03 18:35] LABS: Alkaline Phosphatase* 55 U/L (40-150); Anion Gap 10 mEq/L (7-15); Aspartate Amino Transferase* 27 U/L (12-35); Bilirubin Total* 0.2 mg/dL (0.1-1.5); Carbon Dioxide* 23 mmol/L (20-32); Creatinine* 1.2 mg/dL (0.5-1.5); Est. Creatinine Clearance* 73.21; Estimated Glomerular Filt Rate 71 ml/min; INR 2.67 (0.91-1.10); Prothrombin Time 30.4 Seconds
[2024-03-03 18:36] LABS: Alanine Aminotransferase* 21 U/L (4-50); Blood Urea Nitrogen* 20 mg/dL (7-30); Calcium* 8.8 mg/dL (8.4-10.6); Glucose* 111 mg/dL (60-115)
[2024-03-03 18:46] LABS: NT Pro B Type NatriureticPept* 1310 pg/mL
[2024-03-03 18:52] LABS: Troponin I* < 0.01 ng/mL (0.01-0.04)
[2024-03-03] MEDS: POTASSIUM BICARB 25 MEQ EFFERVESCENT TAB PO (19:02)
[2024-03-03] MEDS: 0.9 % SODIUM CHLORIDE 500 ML 500 ML IV (19:02)
== END 2024-03-03 20:48 | disposition home or self-care (01) ==
PROVIDERS: Emergency Provider Family Medicine; PCP Family Medicine
DX: I48.3 Typical atrial flutter (principal)
CPT/HCPCS: 36415; 71045; 80053; 83735; 83880; 84484; 85025; 85610; 93005; 94761; 99284; A9270; J7030